=== PATIENT | female | born 1935 | race Caucasian/White ===

== ENCOUNTER → 2018-07-19 | Outpatient (CLI) | payer MEDICARE, OTHER ==
[~2018-07-19] MED LIST: ASPI-630 PO; FURO20TA3 PO; LISI-334 PO; LISI1TAB5 PO; METO50TA29 PO; RISP0.5T3 PO
--- NOTE | 2018-07-19 14:06 | RAD ---
EXAM: Bilateral lower extremity venous Doppler sonogram. HISTORY: Pain and swelling. TECHNIQUE: Ruiz scale and color Doppler sonographic evaluation of the bilateral lower extremity veins with spectral waveform analysis was performed. FINDINGS: There is normal color flow, normal compressibility and there are normal spectral waveforms in the common femoral, superficial femoral, popliteal, posterior tibial and greater saphenous veins. IMPRESSION: No Doppler evidence of lower extremity deep venous thrombosis. Electronically signed by: Jackeline Scales MD (07/19/2018 2:03 PM) [id number]
== END | disposition home or self-care (01) ==
LOC: US 13:04
PROVIDERS: ATTEND Family Medicine
DX: R60.0 Localized edema (principal)
CPT/HCPCS: 93970

== ENCOUNTER 2018-10-16 23:11 | Inpatient (IN) | payer MEDICARE, OTHER ==
[~2018-10-16] VITALS: Ht 157.5 cm; Wt 55.8 kg
[2018-10-16] MEDS ORDERED: IV NORMAL SALINE 1,000ML 1,000 ML IV ONE (23:30)
[2018-10-16 23:53] LABS: BASO % 0 % (0-3); EOS % 0 % (0-3); HEMATOCRIT 38.1 % (36.0-47.0); LYMPH # 0.9 x10^3/uL (1.0-4.8); LYMPH % 10 % (24-48); MEAN CORPUSCULAR HEMOGLOBIN 31 pg (25-35); MEAN CORPUSCULAR HGB CONC 34 g/dL (31-37); MEAN CORPUSCULAR VOLUME 92 fL (79-100); MONO # 0.6 x10^3/uL (0.0-1.1); MONO % 7 % (0-9); NEUT # 7.7 x10^3uL (1.8-7.7); NEUT % 83 % (31-73); PLATELET COUNT 133 x10^3/uL (140-400); RED BLOOD COUNT 4.12 x10^6/uL (3.50-5.40); RED CELL DISTRIBUTION WIDTH 14.2 % (11.5-14.5); WHITE BLOOD COUNT 9.2 x10^3/uL (4.0-11.0)
--- NOTE | 2018-10-17 00:20 | EKG ---
[address] [address] Test Date: 2018-10-16 Test Time: 23:56:43 Pat Name: ENRRIQUE TENORIO Department: Room: Gender: F [employer] Export Coordinator: : 1935 Requested By: GABRIELLA CURRAN Order Number: [id number] Reading MD: Measurements Intervals [place] Rate: 96 P: -28 NM: 124 QRS: -28 QRSD: 122 T: 19 QT: 390 QTc: 494 Interpretive Statements SINUS RHYTHM LEFTWARD AXIS NO SPECIFIC ECG ABNORMALITIES RI6.01 No previous ECG available for comparison
[2018-10-17 01:04] LABS: BARBITURATES NEG (NEG); BENZODIAZEPINES NEG (NEG); CANNABINOIDS NEG (NEG); COCAINE NEG (NEG); METHADONE NEG (NEG); OPIATES NEG (NEG); PHENCYCLIDINE NEG (NEG)
[2018-10-17 01:10] LABS: BACTERIA,URINE 0 /HPF (0-FEW); BILIRUBIN,URINE NEG (NEG); CLARITY,URINE CLEAR; COLOR,URINE YELLOW; GLUCOSE,URINE NEG (NEG); NITRITE,URINE NEG (NEG); UROBILINOGEN,URINE 1 mg/dL (0.2 mg/dL)
[2018-10-17 01:11] LABS: AMORPHOUS SEDIMENT,UR PRESENT /HPF; HYALINE CASTS, URINE MOD /HPF; SQUAMOUS EPITHELIAL CELL,UR OCC /LPF
[2018-10-17 01:13] LABS: AMPHETAMINE/METHAMPHETAMINE NEG (NEG)
[2018-10-17 01:34] LABS: ALBUMIN 4.4 g/dL (3.4-5.0); ALBUMIN/GLOBULIN RATIO 1.3 (1.0-1.7); CALCIUM 9.7 mg/dL (8.5-10.1); CREATININE 1.4 mg/dL (0.6-1.0); GFR 36.1; POTASSIUM 3.8 mmol/L (3.5-5.1); TOTAL BILIRUBIN 0.9 mg/dL (0.2-1.0); TOTAL PROTEIN 7.7 g/dL (6.4-8.2)
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
[2018-10-17] MEDS ORDERED: ACETAMINOPHEN 325 MG TABLET PO PRN (02:15)
[2018-10-17] MEDS ORDERED: IV 1/2 NORMAL SALINE 1,000 ML IV ONE (02:30)
[2018-10-17 02:50] VITALS: BP 136/79
[2018-10-17] MEDS: DOXYCYCLINE HYCLATE 100 MG TABLET PO SCH ×2 (10:00→20:48)
[2018-10-17] MEDS: IV DEXTROSE 5 %-0.45 % NACL 1,000 ML IV SCH ×2 (11:15→20:50)
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
[2018-10-17 11:46] VITALS: BP 123/74
[2018-10-17 16:22] VITALS: BP 118/67
--- NOTE | 2018-10-17 19:01 | PDOC ---
Exam Note: Vitaly Note: Please also refer to the separate dictated note~for this date of service dictated separately.~Patient seen individually. Discussed the patient with Nursing staff reviewed the chart.~Reviewed interim history and current functioning. Reviewed vital signs,~Labs/ Radiology~and current medications noted below. Continue current treatment with the changes noted in the dictated addendum note Assessment: Vital Signs: Vital Signs Date Time Temp Pulse Resp B/P (MAP) Pulse Ox O2 Delivery O2 Flow Rate FiO2 10/17/18 16:22 97.9 86 20 118/67 (84) 92 Room Air I&O Intake and Output 10/17/18 07:00 Intake Total 1000 ml Balance 1000 ml Intake Oral 0 ml IV Total 1000 ml # Voids 3 Labs: Laboratory Tests Test 10/16/18 23:35 10/17/18 00:30 White Blood Count 9.2 x10^3/uL (4.0-11.0) Red Blood Count 4.12 x10^6/uL (3.50-5.40) Hemoglobin 13.0 g/dL (12.0-15.5) Hematocrit 38.1 % (36.0-47.0) Mean Corpuscular Volume 92 fL (79-100) Mean Corpuscular Hemoglobin 31 pg (25-35) Mean Corpuscular Hemoglobin Concent 34 g/dL (31-37) Red Cell Distribution Width 14.2 % (11.5-14.5) Platelet Count 133 x10^3/uL (140-400) L Neutrophils (%) (Auto) 83 % (31-73) H Lymphocytes (%) (Auto) 10 % (24-48) L Monocytes (%) (Auto) 7 % (0-9) Eosinophils (%) (Auto) 0 % (0-3) Basophils (%) (Auto) 0 % (0-3) Neutrophils # (Auto) 7.7 x10^3uL (1.8-7.7) Lymphocytes # (Auto) 0.9 x10^3/uL (1.0-4.8) L Monocytes # (Auto) 0.6 x10^3/uL (0.0-1.1) Eosinophils # (Auto) 0.0 x10^3/uL (0.0-0.7) Basophils # (Auto) 0.0 x10^3/uL (0.0-0.2) Sodium Level 148 mmol/L (136-145) H Potassium Level 3.8 mmol/L (3.5-5.1) Chloride Level 108 mmol/L (98-107) H Carbon Dioxide Level 27 mmol/L (21-32) Anion Gap 13 (6-14) Blood Urea Nitrogen 56 mg/dL (7-20) H Creatinine 1.4 mg/dL (0.6-1.0) H Estimated GFR (Cockcroft-Gault) 36.1 BUN/Creatinine Ratio 40 (6-20) H Glucose Level 124 mg/dL (70-99) H Calcium Level 9.7 mg/dL (8.5-10.1) Magnesium Level 2.5 mg/dL (1.8-2.4) H Total Bilirubin 0.9 mg/dL (0.2-1.0) Aspartate Amino Transferase (AST) 56 U/L (15-37) H Alanine Aminotransferase (ALT) 34 U/L (14-59) Alkaline Phosphatase 46 U/L (46-116) Troponin I Quantitative 0.018 ng/mL (0-0.055) Total Protein 7.7 g/dL (6.4-8.2) Albumin 4.4 g/dL (3.4-5.0) Albumin/Globulin Ratio 1.3 (1.0-1.7) Thyroid Stimulating Hormone (TSH) 0.451 uIU/mL (0.358-3.740) Urine Collection Type Unknown Urine Color Yellow Urine Clarity Clear Urine pH 5.5 Urine Specific [place] >=1.030 Urine Protein 30 mg/dl (NEG-TRACE) Urine Glucose (UA) Neg mg/dL (NEG) Urine Ketones (Stick) 15 mg/dL (NEG) Urine Blood Trace (NEG) Urine Nitrite Neg (NEG) Urine Bilirubin Neg (NEG) Urine Urobilinogen Dipstick 1 mg/dL (0.2 mg/dL) Urine Leukocyte Esterase Neg (NEG) Urine RBC 3-5 /HPF (0-2) Urine WBC 1-4 /HPF (0-4) Urine Squamous Epithelial Cells Occ /LPF Urine Amorphous Sediment Present /HPF Urine Bacteria 0 /HPF (0-FEW) Urine Hyaline Casts Mod /HPF Urine Mucus Mod /LPF Urine Opiates Screen Neg (NEG) Urine Methadone Screen Neg (NEG) Urine Barbiturates Neg (NEG) Urine Phencyclidine Screen Neg (NEG) Urine Amphetamine/Methamphetamine Neg (NEG) Urine Benzodiazepines Screen Neg (NEG) Urine Cocaine Screen Neg (NEG) Urine Cannabinoids Screen Neg (NEG) Urine Ethyl Alcohol Neg (NEG) Current Medications: Meds: Current Medications Sodium Chloride 1,000 ml @ 1,000 mls/hr 1X ONCE IV Last administered on 10/16/18at 23:37; Start 10/16/18 at 23:30; Stop 10/17/18 at 00:30; Status DC Acetaminophen (Tylenol) 650 mg PRN Q4HRS PRN PO FEVER; Start 10/17/18 at 02:15; Stop 10/18/18 at 02:14 Sodium Chloride 1,000 ml @ 125 mls/hr 1X ONCE IV Last administered on 10/17/18at 04:00; Start 10/17/18 at 02:30; Stop 10/17/18 at 10:29; Status DC Dextrose/Sodium Chloride 1,000 ml @ 75 mls/hr [id number] IV Last administered on 10/17/18at 11:15; Start 10/17/18 at 10:00 Doxycycline Hyclate (Vibra-Tab) 100 mg BID PO Last administered on 10/17/18at 10:00; Start 10/17/18 at 10:00 I have reviewed the current psychotropics carefully including drug interactions. Risk benefit ratio favors no change other than as noted in my dictated progress note. 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
[2018-10-17 20:14] VITALS: BP 127/70
[2018-10-18] MEDS: IV DEXTROSE 5 %-0.45 % NACL 1,000 ML IV SCH ×2 (02:32→17:35)
[2018-10-18 05:43] VITALS: BP 119/71
[2018-10-18 06:18] LABS: BASO % 1 % (0-3); EOS # 0.1 x10^3/uL (0.0-0.7); EOS % 2 % (0-3); HEMATOCRIT 32.1 % (36.0-47.0); HEMOGLOBIN 10.9 g/dL (12.0-15.5); LYMPH % 20 % (24-48); MEAN CORPUSCULAR HEMOGLOBIN 31 pg (25-35); MEAN CORPUSCULAR HGB CONC 34 g/dL (31-37); MEAN CORPUSCULAR VOLUME 92 fL (79-100); MONO # 0.4 x10^3/uL (0.0-1.1); MONO % 8 % (0-9); NEUT # 3.6 x10^3uL (1.8-7.7); NEUT % 69 % (31-73); PLATELET COUNT 99 x10^3/uL (140-400); RED BLOOD COUNT 3.51 x10^6/uL (3.50-5.40); RED CELL DISTRIBUTION WIDTH 14.1 % (11.5-14.5); WHITE BLOOD COUNT 5.2 x10^3/uL (4.0-11.0)
[2018-10-18 06:25] LABS: CREATININE 0.8 mg/dL (0.6-1.0); GFR 68.8; POTASSIUM 3.2 mmol/L (3.5-5.1)
[2018-10-18] MEDS ORDERED: POTASSIUM CHLORIDE 20 MEQ TABLET.ER. PO ONE (08:00)
[2018-10-18] MEDS: DOXYCYCLINE HYCLATE 100 MG TABLET PO SCH ×2 (08:45→20:04)
[2018-10-18] MEDS ORDERED: ASPI-630 PO (10:35)
[2018-10-18] MEDS ORDERED: METO50TA29 PO (10:35)
[2018-10-18] MEDS ORDERED: FURO20TA3 PO (10:35)
[2018-10-18] MEDS ORDERED: LISI1TAB5 PO (10:35)
[2018-10-18 11:26] VITALS: BP 127/73
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
[2018-10-18 15:25] VITALS: BP 119/70
--- NOTE | 2018-10-18 18:26 | PDOC ---
Exam Note: Vitaly Note: Please also refer to the separate dictated note~for this date of service dictated separately.~Patient seen individually. Discussed the patient with Nursing staff reviewed the chart.~Reviewed interim history and current functioning. Reviewed vital signs,~Labs/ Radiology~and current medications noted below. Continue current treatment with the changes noted in the dictated addendum note Assessment: Vital Signs: Vital Signs Date Time Temp Pulse Resp B/P (MAP) Pulse Ox O2 Delivery O2 Flow Rate FiO2 10/18/18 15:25 97.9 84 18 119/70 (86) 96 Room Air I&O Intake and Output 10/18/18 07:00 Intake Total 3361 ml Balance 3361 ml Intake Oral 1280 ml IV Total 2081 ml Labs: Laboratory Tests Test 10/18/18 06:07 White Blood Count 5.2 x10^3/uL (4.0-11.0) Red Blood Count 3.51 x10^6/uL (3.50-5.40) Hemoglobin 10.9 g/dL (12.0-15.5) L Hematocrit 32.1 % (36.0-47.0) L Mean Corpuscular Volume 92 fL (79-100) Mean Corpuscular Hemoglobin 31 pg (25-35) Mean Corpuscular Hemoglobin Concent 34 g/dL (31-37) Red Cell Distribution Width 14.1 % (11.5-14.5) Platelet Count 99 x10^3/uL (140-400) L Neutrophils (%) (Auto) 69 % (31-73) Lymphocytes (%) (Auto) 20 % (24-48) L Monocytes (%) (Auto) 8 % (0-9) Eosinophils (%) (Auto) 2 % (0-3) Basophils (%) (Auto) 1 % (0-3) Neutrophils # (Auto) 3.6 x10^3uL (1.8-7.7) Lymphocytes # (Auto) 1.0 x10^3/uL (1.0-4.8) Monocytes # (Auto) 0.4 x10^3/uL (0.0-1.1) Eosinophils # (Auto) 0.1 x10^3/uL (0.0-0.7) Basophils # (Auto) 0.0 x10^3/uL (0.0-0.2) Sodium Level 142 mmol/L (136-145) Potassium Level 3.2 mmol/L (3.5-5.1) L Chloride Level 107 mmol/L (98-107) Carbon Dioxide Level 30 mmol/L (21-32) Anion Gap 5 (6-14) L Blood Urea Nitrogen 24 mg/dL (7-20) H Creatinine 0.8 mg/dL (0.6-1.0) Estimated GFR (Cockcroft-Gault) 68.8 Glucose Level 96 mg/dL (70-99) Calcium Level 8.0 mg/dL (8.5-10.1) L Current Medications: Meds: Current Medications Sodium Chloride 1,000 ml @ 1,000 mls/hr 1X ONCE IV Last administered on 10/16/18at 23:37; Start 10/16/18 at 23:30; Stop 10/17/18 at 00:30; Status DC Acetaminophen (Tylenol) 650 mg PRN Q4HRS PRN PO FEVER; Start 10/17/18 at 02:15; Stop 10/18/18 at 02:14; Status DC Sodium Chloride 1,000 ml @ 125 mls/hr 1X ONCE IV Last administered on 10/17/18at 04:00; Start 10/17/18 at 02:30; Stop 10/17/18 at 10:29; Status DC Dextrose/Sodium Chloride 1,000 ml @ 75 mls/hr [id number] IV Last administered on 10/18/18at 17:35; Start 10/17/18 at 10:00 Doxycycline Hyclate (Vibra-Tab) 100 mg BID PO Last administered on 10/18/18at 08:45; Start 10/17/18 at 10:00 Potassium Chloride (Klor-Con) 40 meq 1X ONCE PO Last administered on 10/18/18at 08:46; Start 10/18/18 at 08:00; Stop 10/18/18 at 08:03; Status DC Active Scripts Active Reported Aspirin 81 Mg Tab.chew 81 Mg PO DAILY Lisinopril-Hctz 20-12.5 Mg Tab (Lisinopril/Hydrochlorothiazide) 1 Each Tablet 1 Tab PO DAILY Furosemide 20 Mg Tablet 1 Tab PO DAILY Metoprolol Succinate ( Xl ) (Metoprolol Succinate) 50 Mg Tab.er.24h 1 Tab PO DAILY I have reviewed the current psychotropics carefully including drug interactions. Risk benefit ratio favors no change other than as noted in my dictated progress note. 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
[2018-10-18 19:27] VITALS: BP 152/89
--- NOTE | 2018-10-18 20:54 | PN ---
DATE: 10/18/2018 SUBJECTIVE: This is an 83-year-old female, who is acutely confused and acute psychiatric problem. The patient seems to be a little bit more comfortable today, but still confused. The patient's platelet count continues to go down from 133 down to 99, hemoglobin 10.9. Potassium still low. She is on an electrolyte replacement. We will continue to monitor her accordingly and make further evaluation. OBJECTIVE LUNGS: Diminished throughout, poor movement of air. CARDIOVASCULAR: Regular sinus rhythm. ABDOMEN: Soft, nontender. EXTREMITIES: No clubbing, cyanosis or edema. PLAN: Continue to monitor the patient and make further evaluation on her as indicated per those responses. MOHINI CALL MD DR: ADELA/arielle JOB#: [id number] / [id number]
[2018-10-18] MEDS ORDERED: risperiDONE 0.25 MG TABLET. PO SCH (21:00)
[2018-10-18 23:22] VITALS: BP 133/75
[2018-10-19 05:50] VITALS: BP 151/76
[2018-10-19] MEDS: DOXYCYCLINE HYCLATE 100 MG TABLET PO SCH (08:14)
[2018-10-19 11:04] VITALS: BP 160/81
--- NOTE | 2018-10-19 11:17 | RAD ---
Chest, 2 views, 10/19/2018: HISTORY: Shortness of breath The heart is of normal size. There is extensive calcific plaquing of the mitral annulus. There is moderate calcific plaquing and tortuosity of the thoracic aorta. The pulmonary vascularity is normal. There is minimal linear scarring or atelectasis in the right base. The lungs are otherwise clear. There is blunting of the posterior costophrenic angle on the left compatible scarring versus a small amount of pleural fluid. Mild scattered degenerative changes are evident in the spine. IMPRESSION: 1. Mild right basilar linear scarring or atelectasis. 2. Tiny left pleural effusion versus scarring. Electronically signed by: Alvaro Garvey MD (10/19/2018 11:14 AM) [facility]
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
[2018-10-19] MEDS ORDERED: RISP0.5T3 PO (11:45)
[2018-10-19] MEDS ORDERED: LISI-334 PO (11:46)
--- NOTE | 2018-10-19 23:42 | PN ---
DATE: 10/18/2018 PSYCHIATRIC PROGRESS NOTE This is late entry of 10/18/2018 covers the elements not covered in my initial note. SUBJECTIVE: I met with the patient in the evening. This note covers elements not covered in my initial note. Overall, the patient remains paranoid, psychotic, confused, and restless at times. REVIEW OF SYSTEMS: No CV, , pulmonary, eye system symptoms on review. I met with her in her room. MENTAL STATUS EXAM: Oriented to herself, situation, insight, and judgment. Recent memory is impaired. Language function is intact. Attention span is short. Mood and affect remain somewhat anxious and labile. LABORATORY DATA: Reviewed. IMPRESSION: Major neurocognitive disorder, Alzheimer, vascular with delusion. Rule out bipolar 1 disorder, mixed with psychotic features given her premorbid history of mood swings and psychosis, even when her adult children were growing up; anxiety disorder, unspecified. Rest unchanged. PLAN: Given her ongoing psychosis, we will initiate Risperdal 0.25 mg p.o. at bedtime. When she is medically stable, we will transfer her to the [facility] for further evaluation and stabilization given the fact that her behaviors were quite dangerous and unmanageable at home and she may need out of home placement. LIZ COLIN MD DR: MICHAEL/arielle JOB#: [id number] / [id number]
== END 2018-10-19 14:00 | DRG 683 ==
LOC: ER 23:11 → 1 SOUTH 10-17 02:05
PROVIDERS: ADMIT Family Medicine; ATTEND Family Medicine
DX: N17.9 Acute kidney failure, unspecified (principal); E87.0 Hyperosmolality and hypernatremia; F01.51 Vascular dementia, unspecified severity, with behavioral disturbance; F02.81 Dementia in other diseases classified elsewhere, unspecified severity, with behavioral disturbance; F23 Brief psychotic disorder; E86.0 Dehydration; I12.9 Hypertensive chronic kidney disease with stage 1 through stage 4 chronic kidney disease, or unspecified chronic kidney disease; G30.9 Alzheimer's disease, unspecified; D69.6 Thrombocytopenia, unspecified; N18.3 Chronic kidney disease, stage 3 (moderate); T14.8XXA Other injury of unspecified body region, initial encounter; W57.XXXA Bitten or stung by nonvenomous insect and other nonvenomous arthropods, initial encounter; D63.8 Anemia in other chronic diseases classified elsewhere; E87.6 Hypokalemia; F41.9 Anxiety disorder, unspecified; F32.9 Major depressive disorder, single episode, unspecified; F63.9 Impulse disorder, unspecified; Y93.89 Activity, other specified; Y92.89 Other specified places as the place of occurrence of the external cause; Y99.8 Other external cause status; Z91.83 Wandering in diseases classified elsewhere
CPT/HCPCS: 36415; 71046; 80048; 80053; 80307; 81001; 82607; 83735; 84443; 84484; 85025; 86617; 86618; 93005; 96360; J7030; P9612; 99285-25

== ENCOUNTER 2018-10-19 12:39 | Inpatient (IN) | payer MEDICARE, OTHER ==
[~2018-10-19] VITALS: Ht 157.5 cm; Wt 59.2 kg
[2018-10-19 14:42] VITALS: BP 150/80
[2018-10-19] MEDS ORDERED: MAGNESIUM HYDROXIDE 2,400 MG/30 ML ORAL.SUSP. PO PRN (14:45)
[2018-10-19] MEDS ORDERED: METHYL SALICYLATE/MENTHOL TOPICAL OINTMENT 29GM TUBE. TP PRN (14:45)
[2018-10-19] MEDS ORDERED: MAG HYDROX/AL HYDROX/SIMETH 30 ML ORAL.SUSP PO PRN (14:45)
[2018-10-19 16:27] VITALS: BP 162/91
[2018-10-19] MEDS: risperiDONE 0.5 MG TABLET. PO SCH (20:33)
--- NOTE | 2018-10-19 22:41 | PDOC ---
Exam Note: Vitaly Note: Please also refer to the separate dictated note~for this date of service dictated separately. Discussed the patient with Nursing staff reviewed the chart.~Reviewed interim history and current functioning. Reviewed vital signs,~Labs/ Radiology~and current medications noted below. Continue current treatment with the changes noted in the dictated addendum note Assessment: Vital Signs: Vital Signs Date Time Temp Pulse Resp B/P (MAP) Pulse Ox O2 Delivery O2 Flow Rate FiO2 10/19/18 16:27 98.0 104 20 162/91 (114) 97 10/19/18 14:42 Room Air Labs: Laboratory Tests Test 10/19/18 14:35 Magnesium Level 1.8 mg/dL (1.8-2.4) Current Medications: Meds: Current Medications Furosemide (Lasix) 20 mg DAILY PO ; Start 10/20/18 at 09:00 Lisinopril (Prinivil) 20 mg DAILY PO ; Start 10/20/18 at 09:00 Aspirin (Children'S Aspirin) 81 mg QODAY PO ; Start 10/20/18 at 09:00 Metoprolol Succinate (Toprol Xl) 50 mg DAILY PO ; Start 10/20/18 at 09:00 Risperidone (RisperDAL) 0.5 mg QHS PO Last administered on 10/19/18at 20:33; Start 10/19/18 at 21:00 Acetaminophen (Tylenol) 650 mg PRN Q6HRS PRN PO PAIN / TEMP; Start 10/19/18 at 14:45 Multi-Ingredient Ointment (Analgesic [place]) 1 guanako PRN QID PRN TP MUSCLE PAIN; S tart 10/19/18 at 14:45 Al Hydroxide/Mg Hydroxide (Mylanta Plus Xs) 15 ml PRN AFTMEALHC PRN PO DYSPEPSIA; Start 10/19/18 at 14:45 Magnesium Hydroxide (Milk Of Magnesia) 2,400 mg PRN QHS PRN PO CONSTIPATION; Start 10/19/18 at 14:45 Active Scripts Active Reported Lisinopril 20 Mg Tablet 1 Tab PO DAILY Risperidone 0.5 Mg Tablet 0.5 Tab PO HS Aspirin 81 Mg Tab.chew 81 Mg PO QODAY Furosemide 20 Mg Tablet 1 Tab PO DAILY Metoprolol Succinate ( Xl ) (Metoprolol Succinate) 50 Mg Tab.er.24h 1 Tab PO DAILY I have reviewed the current psychotropics carefully including drug interactions. Risk benefit ratio favors no change other than as noted in my dictated progress note. Diagnosis: Problems: (1) Anxiety disorder (2) Dementia, vascular, with depression (3) Dementia, vascular, with delusions (4) Dementia in Alzheimer's disease with depression (5) Dementia in Alzheimer's disease with delusions (6) Impulse control disorder LIZ COLIN MD Oct 19, 2018 22:41
[2018-10-20 05:56] VITALS: BP 133/83
[2018-10-20 06:39] LABS: BACTERIA,URINE 0 /HPF (0-FEW); BILIRUBIN,URINE NEG (NEG); CLARITY,URINE CLEAR; COLOR,URINE YELLOW; GLUCOSE,URINE NEG (NEG); NITRITE,URINE NEG (NEG); RBC,URINE 0 /HPF (0-2); UROBILINOGEN,URINE 0.2 mg/dL (0.2 mg/dL); WBC,URINE 0 /HPF (0-4)
[2018-10-20] MEDS: ASPIRIN 81 MG TAB.CHEW PO SCH (08:37)
[2018-10-20] MEDS: FUROSEMIDE 20 MG TABLET PO SCH (08:37)
[2018-10-20] MEDS: LISINOPRIL 20 MG TABLET PO SCH (08:38)
[2018-10-20] MEDS: METOPROLOL SUCC 24HR ER 50 MG TAB.ER.24H. PO SCH (08:39)
--- NOTE | 2018-10-20 08:44 | RAD ---
CT of the head without contrast, 10/20/2018: HISTORY: Altered mental status There is mild cerebral atrophy. There are moderate patchy lucencies in the deep white matter bilaterally suggesting chronic ischemic change. The ventricles are within normal limits in size. There is no shift of the midline structures. There is no evidence of acute intracranial hemorrhage or mass effect. There is moderate hyperostosis frontalus interna. IMPRESSION: 1. Cerebral atrophy. 2. Moderate patchy bilateral deep white matter lucencies compatible with chronic ischemic change. 3. No acute intracranial abnormality is detected PQRS Compliance Statement: One or more of the following individualized dose reduction techniques were utilized for this examination: 1. Automated exposure control 2. Adjustment of the mA and/or kV according to patient size 3. Use of iterative reconstruction technique te intracranial abnormality is detected. Electronically signed by: Alvaro Garvey MD (10/20/2018 8:41 AM) [facility]
[2018-10-20 09:19] LABS: BASO % 1 % (0-3); EOS % 1 % (0-3); HEMOGLOBIN 12.9 g/dL (12.0-15.5); LYMPH # 0.7 x10^3/uL (1.0-4.8); LYMPH % 17 % (24-48); MEAN CORPUSCULAR HEMOGLOBIN 31 pg (25-35); MEAN CORPUSCULAR HGB CONC 33 g/dL (31-37); MEAN CORPUSCULAR VOLUME 93 fL (79-100); MONO # 0.3 x10^3/uL (0.0-1.1); MONO % 6 % (0-9); NEUT % 75 % (31-73); PLATELET COUNT 109 x10^3/uL (140-400); RED BLOOD COUNT 4.19 x10^6/uL (3.50-5.40); RED CELL DISTRIBUTION WIDTH 13.8 % (11.5-14.5)
[2018-10-20 09:37] LABS: ALBUMIN 3.2 g/dL (3.4-5.0); ALBUMIN/GLOBULIN RATIO 0.9 (1.0-1.7); CALCIUM 8.9 mg/dL (8.5-10.1); CREATININE 0.8 mg/dL (0.6-1.0); GFR 68.8; POTASSIUM 3.7 mmol/L (3.5-5.1); TOTAL BILIRUBIN 0.4 mg/dL (0.2-1.0); TOTAL PROTEIN 6.7 g/dL (6.4-8.2)
--- NOTE | 2018-10-20 10:15 | HP ---
ADMIT DATE: 10/19/2018 PSYCHIATRIC ADMISSION HISTORY/EVALUATION This late entry 10/19/2018 covers illness, not covered in the initial note. I met with the patient evening of 10/19/2018 at length. Discussed with nursing staff, reviewed the chart. Reviewed current past records. I had previously seen the patient for a psychiatric consult while she was in [address] [place] [address] medical/surgical floor and I have reviewed all that information as well. IDENTIFYING DATA: The patient is an 83-year-old female referred by Dr. Recinos from the medical/surgical floor after she was admitted there via the Emergency Room. Brought in by the family on account of worsening confusion, being delusional, paranoid, having active hallucinations. [place] the [place] She was agitated, yelling at staff, was covered with ticks, possibly 16 of them were removed in the ER. She was paranoid, suspicious, confused. She was medically stabilized on , symptoms persisted and she was unsafe to return home, referred for inpatient psychiatric stabilization, possible placement. CHIEF COMPLAINT: "I have difficulty making out a difference between reality and imagination." HISTORY OF PRESENT ILLNESS: The patient has a history of progressive memory deficits, confusion, but prior to all of that the family relates she had additional history of mood swings, psychosis, agitation, yelling at the children when she was much younger and all of this for no reason. She never did seek psychiatric care at this time, but with the onset of progressive dementia, all of this has exacerbated to the point where she was dangerous as noted above. No active suicidal or homicidal ideation. The patient continues to be paranoid, believes her sister and family are trying to steal her home and land. She has been delusional, thinks she has been walking 5 miles a day to the grocery store for food. PAST PSYCHIATRIC HISTORY: As above. MEDICAL HISTORY: Positive for hypertension, multiple tick bites, chronic kidney disease, hypernatremia, dehydration, hyperglycemia, thrombocytopenia. She is medically stable at this time. ACCU-CHEKS: None. DIET: Regular. MEDICATIONS: Takes medications whole. AMBULATES: Ad carrie. ALLERGIES: Negative. CODE STATUS: Full code. CURRENT PSYCHOTROPICS: Risperdal was started on , 0.5 mg p.o. at bedtime, by myself for her paranoia, psychosis. FAMILY HISTORY: Noncontributory. SOCIAL HISTORY: No history of alcohol, drug abuse, physical, sexual or elder abuse. She is not known to be a perpetrator. MENTAL STATUS EXAMINATION: The patient was seen individually evening of 10/19/2018. She is anxious, restless, remember she has seen me previously. Unaware of the year or who the president is, as before. Speech has some latency, coherent. She is paranoid, suspicious. No active suicidal or homicidal ideation. Attention span short. Language function intact. LABORATORY DATA: Reviewed. 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 Rest as above. PLAN: Admit to Ger[facility]iat[facility] Unit at [facility]. I will see the patient daily individually from a psychiatric standpoint. Medical followup with Dr. Recinos. Continue the patient on her current psychotropics. Consider adding Zoloft as an SSRI antidepressant antianxiety agent. We will check a CT head to make sure no acute intracranial changes could account for her change in mentation. May consider adding Exelon patch as well. We will make all these decisions post baseline assessment. Estimated length of stay 10-12 days. DISPOSITION: Plans probably to snf. MAN Charli COLIN MD DR: MICHAEL/arielle JOB#: [id number] / [id number]
[2018-10-20 12:55] LABS: THYROID STIM HORMONE (TSH) 1.15 uIU/mL (0.358-3.740)
[2018-10-20 13:07] LABS: HEMOGLOBIN A1C 5.6 % (4.8-5.6)
[2018-10-20 15:41] VITALS: BP 148/88
[2018-10-20] MEDS: risperiDONE 0.5 MG TABLET. PO SCH (19:39)
--- NOTE | 2018-10-20 23:00 | PDOC ---
Exam Note: Vitaly Note: Please also refer to the separate dictated note~for this date of service dictated separately.~Patient seen individually. Discussed the patient with Nursing staff reviewed the chart.~Reviewed interim history and current functioning. Reviewed vital signs,~Labs/ Radiology~and current medications noted below. Continue current treatment with the changes noted in the dictated addendum note Assessment: Vital Signs: Vital Signs Date Time Temp Pulse Resp B/P (MAP) Pulse Ox O2 Delivery O2 Flow Rate FiO2 10/20/18 15:41 98.1 82 20 148/88 (108) 98 10/19/18 14:42 Room Air I&O Intake and Output 10/20/18 06:59 Intake Total 720 ml Balance 720 ml Intake Oral 720 ml Labs: Laboratory Tests Test 10/20/18 05:35 10/20/18 09:09 Urine Collection Type Void Urine Color Yellow Urine Clarity Clear Urine pH 7.0 Urine Specific [place] 1.010 Urine Protein Neg (NEG-TRACE) Urine Glucose (UA) Neg mg/dL (NEG) Urine Ketones (Stick) Neg mg/dL (NEG) Urine Blood Trace (NEG) Urine Nitrite Neg (NEG) Urine Bilirubin Neg (NEG) Urine Urobilinogen Dipstick 0.2 mg/dL (0.2 mg/dL) Urine Leukocyte Esterase Trace (NEG) Urine RBC 0 /HPF (0-2) Urine WBC 0 /HPF (0-4) Urine Squamous Epithelial Cells None /LPF Urine Bacteria 0 /HPF (0-FEW) White Blood Count 4.0 x10^3/uL (4.0-11.0) Red Blood Count 4.19 x10^6/uL (3.50-5.40) Hemoglobin 12.9 g/dL (12.0-15.5) Hematocrit 39.0 % (36.0-47.0) Mean Corpuscular Volume 93 fL (79-100) Mean Corpuscular Hemoglobin 31 pg (25-35) Mean Corpuscular Hemoglobin Concent 33 g/dL (31-37) Red Cell Distribution Width 13.8 % (11.5-14.5) Platelet Count 109 x10^3/uL (140-400) L Neutrophils (%) (Auto) 75 % (31-73) H Lymphocytes (%) (Auto) 17 % (24-48) L Monocytes (%) (Auto) 6 % (0-9) Eosinophils (%) (Auto) 1 % (0-3) Basophils (%) (Auto) 1 % (0-3) Neutrophils # (Auto) 3.0 x10^3uL (1.8-7.7) Lymphocytes # (Auto) 0.7 x10^3/uL (1.0-4.8) L Monocytes # (Auto) 0.3 x10^3/uL (0.0-1.1) Eosinophils # (Auto) 0.0 x10^3/uL (0.0-0.7) Basophils # (Auto) 0.0 x10^3/uL (0.0-0.2) Sodium Level 143 mmol/L (136-145) Potassium Level 3.7 mmol/L (3.5-5.1) Chloride Level 105 mmol/L (98-107) Carbon Dioxide Level 30 mmol/L (21-32) Anion Gap 8 (6-14) Blood Urea Nitrogen 10 mg/dL (7-20) Creatinine 0.8 mg/dL (0.6-1.0) Estimated GFR (Cockcroft-Gault) 68.8 BUN/Creatinine Ratio 13 (6-20) Glucose Level 193 mg/dL (70-99) H Calcium Level 8.9 mg/dL (8.5-10.1) Total Bilirubin 0.4 mg/dL (0.2-1.0) Aspartate Amino Transferase (AST) 33 U/L (15-37) Alanine Aminotransferase (ALT) 35 U/L (14-59) Alkaline Phosphatase 44 U/L (46-116) L Total Protein 6.7 g/dL (6.4-8.2) Albumin 3.2 g/dL (3.4-5.0) L Albumin/Globulin Ratio 0.9 (1.0-1.7) L Current Medications: Meds: Current Medications Furosemide (Lasix) 20 mg DAILY PO Last administered on 10/20/18at 08:37; Start 10/20/18 at 09:00 Lisinopril (Prinivil) 20 mg DAILY PO Last administered on 10/20/18at 08:38; Start 10/20/18 at 09:00 Aspirin (Children'S Aspirin) 81 mg QODAY PO Last administered on 10/20/18at 08:37; Start 10/20/18 at 09:00 Metoprolol Succinate (Toprol Xl) 50 mg DAILY PO Last administered on 10/20/18at 08:39; Start 10/20/18 at 09:00 Risperidone (RisperDAL) 0.5 mg QHS PO Last administered on 10/20/18at 19:39; Start 10/19/18 at 21:00 Acetaminophen (Tylenol) 650 mg PRN Q6HRS PRN PO PAIN / TEMP; Start 10/19/18 at 14:45 Multi-Ingredient Ointment (Analgesic [place]) 1 guanako PRN QID PRN TP MUSCLE PAIN; Start 10/19/18 at 14:45 Al Hydroxide/Mg Hydroxide (Mylanta Plus Xs) 15 ml PRN AFTMEALHC PRN PO DYSPEPSIA; Start 10/19/18 at 14:45 Magnesium Hydroxide (Milk Of Magnesia) 2,400 mg PRN QHS PRN PO CONSTIPATION; Start 10/19/18 at 14:45 Sertraline HCl (Zoloft) 25 mg DAILY PO ; Start 10/21/18 at 09:00 Rivastigmine (Exelon) 1 patch DAILY TD ; Start 10/21/18 at 09:00 Active Scripts Active Reported Lisinopril 20 Mg Tablet 1 Tab PO DAILY Risperidone 0.5 Mg Tablet 0.5 Tab PO HS Aspirin 81 Mg Tab.chew 81 Mg PO QODAY Furosemide 20 Mg Tablet 1 Tab PO DAILY Metoprolol Succinate ( Xl ) (Metoprolol Succinate) 50 Mg Tab.er.24h 1 Tab PO DAILY I have reviewed the current psychotropics carefully including drug interactions. Risk benefit ratio favors no change other than as noted in my dictated progress note. Diagnosis: Problems: (1) Major neurocognitive disorder, due to vascular disease, with behavioral disturbance, mild (2) Anxiety disorder (3) Dementia, vascular, with depression (4) Dementia, vascular, with delusions (5) Dementia in Alzheimer's disease with depression (6) Dementia in Alzheimer's disease with delusions (7) Impulse control disorder LIZ COLIN MD Oct 20, 2018 23:00
--- NOTE | 2018-10-21 04:20 | CONS ---
DATE OF CONSULTATION: 10/20/2018 REASON FOR CONSULTATION: Medical management. HISTORY OF PRESENT ILLNESS: The patient is an 83-year-old female patient who was seen initially in the Emergency Room, where she was brought by her family on account of worsening confusion, being delusional, paranoid, having active hallucination, and the police [place]. She was agitated, yelling at staff, was covered with ticks, possibly 16 of them were removed in the ER. She was paranoid, suspicious, confused. She was admitted to [address] [place] [address]. However, her symptoms have persisted and therefore, she was transferred to [facility] for inpatient psychiatric stabilization and possible placement. The patient is very confused and does not really give any useful information and difficult to corroborate her story. However, she denied any physical complaints. PAST MEDICAL HISTORY: Significant for hypertension, chronic kidney disease, hypernatremia, dehydration, hyperglycemia, and thrombocytopenia. She was stabilized in [address] [place] [address]. In fact, her lab work normalized by the time she arrived to this unit. Her serum sodium was 142, potassium down to 3.2, BUN 24, creatinine 0.8 and her magnesium was also normal. PAST SURGICAL HISTORY: Unobtainable. ALLERGIES: She has no known drug allergies. CODE STATUS: Full. PSYCHIATRIC HISTORY: Significant for progressive memory deficit, confusion, but prior to all of that, the family relates that she had additional history of mood swings, psychosis, agitation, yelling at children when she was much younger and all of this for no reason. She never did not seek any psychiatric care at that time, but with the onset of progressive dementia, all of these has exacerbated to the point that she was dangerous as noted above. MEDICATIONS: She is currently on following medications: She is on metoprolol succinate 50 mg once a day, lisinopril 20 mg once a day, aspirin 81 mg every other day, risperidone 0.5 mg at bedtime, and furosemide 20 mg daily. REVIEW OF SYSTEMS: As per history of present illness. PHYSICAL EXAMINATION GENERAL: When I saw her today, she looked well and was clearly in no apparent respiratory distress. No pallor, jaundice, cyanosis or thyromegaly. No jugular venous distension. No lower limb edema. VITAL SIGNS: Her heart rate was 82, blood pressure was 148/88, temperature was 98.1, respiratory rate 20, and oxygen saturation was 98%. HEAD, EYES, EARS, NOSE, AND THROAT: Showed normocephalic, atraumatic. NECK: Supple. HEART: Showed normal first and second heart sounds. No gallop, rub or murmur. CHEST: Clear to auscultation. No crepitation or rhonchi. ABDOMEN: Distended, soft, nontender. NEUROLOGIC: She is confused; however, all her cranial nerves intact. She moves extremities without difficulty. LABORATORY DATA: Her lab work this morning showed a serum sodium 143, potassium 3.7, chloride 105, bicarbonate 30, anion gap of 8, BUN 10, creatinine 0.8, estimated GFR was 68 mL per minute. Her glucose 193, calcium was 8.9. Total bilirubin, AST, ALT, and alkaline phosphatase were normal. Her serum iron, TIBC, and iron saturation consistent with iron deficiency anemia. Her total protein was 6.7, albumin was 3.2. Her 25-hydroxy vitamin D was low at 22.3; however, her TSH is normal at 1.150. The total T4 and total T3 were normal. Her white cell count was 4000, hemoglobin 12.9, hematocrit 39, MCV 93, and platelet count of 109,000 with normal manual differential. Urinalysis was unremarkable and toxic screen was essentially negative. Her Treponema pallidum antibody was nonreactive, and Lyme disease IgG, IgM was negative. ASSESSMENT AND PLAN: In summary, this is an 83-year-old female patient who was initially evaluated in the Emergency Room, was found to have multiple medical abnormalities including hypernatremia and acute kidney injury and marked dehydration that all has been stabilized. She continued to have episodes of hyperglycemia and thrombocytopenia. I have reviewed all her medications and would obviously continue all of them. We will continue to monitor her other lab work that is still pending and make any necessary recommendation. Thank you, Dr. Dutta, for allowing me to participate in the care of this patient. MEG DE LA CRUZ MD DR: ERIN/arielle JOB#: [id number] / [id number]
[2018-10-21 06:16] VITALS: BP 127/72
[2018-10-21] MEDS: FUROSEMIDE 20 MG TABLET PO SCH (08:14)
[2018-10-21] MEDS: METOPROLOL SUCC 24HR ER 50 MG TAB.ER.24H. PO SCH (08:15)
[2018-10-21] MEDS: LISINOPRIL 20 MG TABLET PO SCH (08:15)
[2018-10-21] MEDS: RIVASTIGMINE 4.6MG PATCH. TD SCH (08:18)
[2018-10-21] MEDS: SERTRALINE 25 MG TABLET. PO SCH (08:18)
[2018-10-21 16:01] VITALS: BP 114/71
[2018-10-21] MEDS: risperiDONE 0.5 MG TABLET. PO SCH (19:48)
--- NOTE | 2018-10-21 22:19 | PDOC ---
Exam Note: Vitaly Note: Please also refer to the separate dictated note~for this date of service dictated separately.~Patient seen individually. Discussed the patient with Nursing staff reviewed the chart.~Reviewed interim history and current functioning. Reviewed vital signs,~Labs/ Radiology~and current medications noted below. Continue current treatment with the changes noted in the dictated addendum note Assessment: Vital Signs: Vital Signs Date Time Temp Pulse Resp B/P (MAP) Pulse Ox O2 Delivery O2 Flow Rate FiO2 10/21/18 16:01 97.8 58 16 114/71 (85) 96 10/21/18 06:16 Room Air I&O Intake and Output 10/21/18 07:00 Intake Total 960 ml Balance 960 ml Intake Oral 960 ml Current Medications: Meds: Current Medications Furosemide (Lasix) 20 mg DAILY PO Last administered on 10/21/18at 08:14; Start 10/20/18 at 09:00 Lisinopril (Prinivil) 20 mg DAILY PO Last administered on 10/21/18 08:15; Start 10/20/18 at 09:00 Aspirin (Children'S Aspirin) 81 mg QODAY PO Last administered on 10/20/18at 08:37; Start 10/20/18 at 09:00 Metoprolol Succinate (Toprol Xl) 50 mg DAILY PO Last administered on 10/21/18 08:15; Start 10/20/18 at 09:00 Risperidone (RisperDAL) 0.5 mg QHS PO Last administered on 10/21/18at 19:48; Start 10/19/18 at 21:00 Acetaminophen (Tylenol) 650 mg PRN Q6HRS PRN PO PAIN / TEMP; Start 10/19/18 at 14:45 Multi-Ingredient Ointment (Analgesic [place]) 1 guanako PRN QID PRN TP MUSCLE PAIN; Start 10/19/18 at 14:45 Al Hydroxide/Mg Hydroxide (Mylanta Plus Xs) 15 ml PRN AFTMEALHC PRN PO DYSPEPSIA; Start 10/19/18 at 14:45 Magnesium Hydroxide (Milk Of Magnesia) 2,400 mg PRN QHS PRN PO CONSTIPATION; Start 10/19/18 at 14:45 Sertraline HCl (Zoloft) 25 mg DAILY PO Last administered on 10/21/18at 08:18; Start 10/21/18 at 09:00; Stop 10/24/18 at 08:59 Rivastigmine (Exelon) 1 patch DAILY TD Last administered on 10/21/18at 08:18; Start 10/21/18 at 09:00 Sertraline HCl (Zoloft) 50 mg DAILY PO ; Start 10/24/18 at 09:00 Active Scripts Active Reported Lisinopril 20 Mg Tablet 1 Tab PO DAILY Risperidone 0.5 Mg Tablet 0.5 Tab PO HS Aspirin 81 Mg Tab.chew 81 Mg PO QODAY Furosemide 20 Mg Tablet 1 Tab PO DAILY Metoprolol Succinate ( Xl ) (Metoprolol Succinate) 50 Mg Tab.er.24h 1 Tab PO DAILY I have reviewed the current psychotropics carefully including drug interactions. Risk benefit ratio favors no change other than as noted in my dictated progress note. Diagnosis: Problems: (1) Major neurocognitive disorder, due to vascular disease, with behavioral disturbance, mild (2) Anxiety disorder (3) Dementia, vascular, with depression (4) Dementia, vascular, with delusions (5) Dementia in Alzheimer's disease with depression (6) Dementia in Alzheimer's disease with delusions (7) Impulse control disorder LIZ COLIN MD Oct 21, 2018 22:19
[2018-10-21] MEDS: ACETAMINOPHEN 325 MG TABLET PO PRN (23:43)
[2018-10-22 06:34] VITALS: BP 121/72
[2018-10-22] MEDS: FUROSEMIDE 20 MG TABLET PO SCH (08:29)
[2018-10-22] MEDS: METOPROLOL SUCC 24HR ER 50 MG TAB.ER.24H. PO SCH (08:29)
[2018-10-22] MEDS: LISINOPRIL 20 MG TABLET PO SCH (08:30)
[2018-10-22] MEDS: SERTRALINE 25 MG TABLET. PO SCH (08:30)
[2018-10-22] MEDS: RIVASTIGMINE 4.6MG PATCH. TD SCH (08:30)
[2018-10-22] MEDS: ASPIRIN 81 MG TAB.CHEW PO SCH (08:31)
[2018-10-22] MEDS: ACETAMINOPHEN 325 MG TABLET PO PRN (09:15)
[2018-10-22 15:20] VITALS: BP 109/57
--- NOTE | 2018-10-22 17:02 | PN ---
DATE: 10/20/2018 PSYCHIATRIC PROGRESS NOTE This late entry on 10/20/2018 covers elements, not covered in my initial note. SUBJECTIVE: I met with the patient in the evening. The patient slept 6-1/4 hours previous night. She has been tearful, anxious, confused specifically for short term events. She is paranoid of her family, stealing her things, wanting her home. CT head showed cerebral atrophy, moderate deep white matter lucencies, compatible with chronic ischemic disease, no acute changes. REVIEW OF SYSTEMS: No CV, , pulmonary, eye, ENT system symptoms on review. She kept following me around the unit even after I had met with her extensively to address all of the above. No CV, , pulmonary, eye, ENT system symptoms on review. MENTAL STATUS EXAM: Oriented to herself and situation. Speech is coherent, rapid at times. Abstraction fair, computation impaired, language function intact, attention span short. Mood and affect somewhat anxious, labile. LABORATORY DATA: Reviewed. 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 PLAN: Continue current psychotropics, start Zoloft 25 mg a day, Exelon patch 4.6 mg a day and she is on Risperdal 0.5 mg p.o. at bedtime. Adjust further as clinically indicated. LIZ COLIN MD DR: MICHAEL/arielle JOB#: [id number] / [id number]
[2018-10-22] MEDS: risperiDONE 0.5 MG TABLET. PO SCH (20:30)
--- NOTE | 2018-10-22 22:41 | PDOC ---
Exam Note: Vitaly Note: Please also refer to the separate dictated note~for this date of service dictated separately.~Patient seen individually. Discussed the patient with Nursing staff reviewed the chart.~Reviewed interim history and current functioning. Reviewed vital signs,~Labs/ Radiology~and current medications noted below. Continue current treatment with the changes noted in the dictated addendum note Assessment: Vital Signs/I&O: Vital Signs Date Time Temp Pulse Resp B/P (MAP) Pulse Ox O2 Delivery O2 Flow Rate FiO2 10/22/18 15:20 98.1 70 18 109/57 (74) 95 10/22/18 06:34 Room Air I & O 10/21/18 10/21/18 10/22/18 15:00 23:00 07:00 Intake Total 720 ml 600 ml Balance 720 ml 600 ml Current Medications: I have reviewed the current psychotropics carefully including drug interactions. Risk benefit ratio favors no change other than as noted in my dictated progress note. Diagnosis: Problems: (1) Major neurocognitive disorder, due to vascular disease, with behavioral disturbance, mild (2) Anxiety disorder (3) Dementia, vascular, with depression (4) Dementia, vascular, with delusions (5) Dementia in Alzheimer's disease with depression (6) Dementia in Alzheimer's disease with delusions (7) Impulse control disorder LIZ COLIN MD Oct 22, 2018 22:41
--- NOTE | 2018-10-23 00:13 | PN ---
DATE: 10/21/2018 PSYCHIATRIC PROGRESS NOTE This late entry 10/21/2018 covers elements not covered in my initial note. SUBJECTIVE: I met with the patient in the evening. The patient slept 7 hours previous night. The patient remains confused, somewhat paranoid, suspicious, believes her family is trying to take her belongings in her home. She is more interactive. She specifically feels the sister is trying to take her property. Processed this with her. REVIEW OF SYSTEMS: No CV, , pulmonary, eye, ENT system symptoms on review. Reliability poor. MENTAL STATUS EXAM: Oriented to herself and situation. Speech has some latency, coherent. Abstraction fair, computation impaired, language function intact, attention span short. Mood and affect, somewhat anxious, paranoid, labile at times. LABORATORY DATA: Reviewed. IMPRESSION: Unchanged from initial note. PLAN: Increase Zoloft from 25 mg a day to 50 mg a day after she has been on 25 for 3 days. Maintain Risperdal 0.5 mg at bedtime, Exelon patch 4.6 mg a day and we will increase this later. MAN Charli COLIN MD DR: MICHAEL/arielle JOB#: [id number] / [id number]
[2018-10-23 05:40] VITALS: BP 138/85
[2018-10-23] MEDS: FUROSEMIDE 20 MG TABLET PO SCH (09:10)
[2018-10-23] MEDS: METOPROLOL SUCC 24HR ER 50 MG TAB.ER.24H. PO SCH (09:12)
[2018-10-23] MEDS: LISINOPRIL 20 MG TABLET PO SCH (09:12)
[2018-10-23] MEDS: SERTRALINE 25 MG TABLET. PO SCH (09:13)
[2018-10-23] MEDS: RIVASTIGMINE 4.6MG PATCH. TD SCH (09:13)
[2018-10-23 15:42] VITALS: BP 123/77
[2018-10-23] MEDS: risperiDONE 0.5 MG TABLET. PO SCH (19:31)
--- NOTE | 2018-10-23 22:50 | PDOC ---
Exam Note: Vitaly Note: Please also refer to the separate dictated note~for this date of service dictated separately.~Patient seen individually. Discussed the patient with Nursing staff reviewed the chart.~Reviewed interim history and current functioning. Reviewed vital signs,~Labs/ Radiology~and current medications noted below. Continue current treatment with the changes noted in the dictated addendum note Assessment: Vital Signs/I&O: Vital Signs Date Time Temp Pulse Resp B/P (MAP) Pulse Ox O2 Delivery O2 Flow Rate FiO2 10/23/18 15:42 98.8 68 16 123/77 (92) 95 10/23/18 05:40 Room Air I & O 10/22/18 10/22/18 10/23/18 14:59 22:59 06:59 Intake Total 600 ml 120 ml 120 ml Balance 600 ml 120 ml 120 ml Current Medications: I have reviewed the current psychotropics carefully including drug interactions. Risk benefit ratio favors no change other than as noted in my dictated progress note. Diagnosis: Problems: (1) Major neurocognitive disorder, due to vascular disease, with behavioral disturbance, mild (2) Anxiety disorder (3) Dementia, vascular, with depression (4) Dementia, vascular, with delusions (5) Dementia in Alzheimer's disease with depression (6) Dementia in Alzheimer's disease with delusions (7) Impulse control disorder ILZ COLIN MD Oct 23, 2018 22:50
[2018-10-24 05:44] VITALS: BP 119/69
[2018-10-24] MEDS: FUROSEMIDE 20 MG TABLET PO SCH (08:12)
[2018-10-24] MEDS: ASPIRIN 81 MG TAB.CHEW PO SCH (08:12)
[2018-10-24] MEDS: LISINOPRIL 20 MG TABLET PO SCH (08:13)
[2018-10-24] MEDS: METOPROLOL SUCC 24HR ER 50 MG TAB.ER.24H. PO SCH (08:13)
[2018-10-24] MEDS: RIVASTIGMINE 4.6MG PATCH. TD SCH (08:21)
[2018-10-24] MEDS: SERTRALINE 50 MG TABLET. PO SCH (08:21)
[2018-10-24 15:29] VITALS: BP 108/70
[2018-10-24] MEDS: risperiDONE 0.5 MG TABLET. PO SCH (20:11)
--- NOTE | 2018-10-24 21:53 | PN ---
DATE: 10/22/2018 PSYCHIATRIC PROGRESS NOTE This late entry 10/22/2018 covers elements not covered in my initial note. SUBJECTIVE: I met with the patient in the evening. The patient slept 6 hours previous night. Appetite 80%, somewhat paranoid, confused, believes her family is stealing her home. REVIEW OF SYSTEMS: No CV, , pulmonary, eye, ENT system symptoms on review. Reliability poor. MENTAL STATUS EXAM: Oriented to herself. Insight, judgment, recent memory is impaired, remote is better. Language function intact. Attention span short. Mood and affect remain somewhat anxious, labile, paranoid, but better than before. LABORATORY DATA: Reviewed. IMPRESSION: Unchanged from initial note. PLAN: No change from initial note. MAN Charli COLIN MD DR: MICHAEL/arielle JOB#: [id number] / [id number]
--- NOTE | 2018-10-24 22:17 | PDOC ---
Exam Note: Vitaly Note: Please also refer to the separate dictated note~for this date of service dictated separately.~Patient seen individually. Discussed the patient with Nursing staff reviewed the chart.~Reviewed interim history and current functioning. Reviewed vital signs,~Labs/ Radiology~and current medications noted below. Continue current treatment with the changes noted in the dictated addendum note Assessment: Vital Signs/I&O: Vital Signs Date Time Temp Pulse Resp B/P (MAP) Pulse Ox O2 Delivery O2 Flow Rate FiO2 10/24/18 15:29 97.6 69 16 108/70 (83) 96 10/23/18 05:40 Room Air I & O 10/23/18 10/23/18 10/24/18 15:00 23:00 07:00 Intake Total 720 ml 240 ml 120 ml Balance 720 ml 240 ml 120 ml Current Medications: Meds: Current Medications Medications (Trade) Dose Ordered Sig/Cecilio Route PRN Reason Start Time Stop Time Status Last Admin Dose Admin Sertraline HCl (Zoloft) 50 mg DAILY PO 10/24/18 09:00 10/24/18 08:21 I have reviewed the current psychotropics carefully including drug interactions. Risk benefit ratio favors no change other than as noted in my dictated progress note. Diagnosis: Problems: (1) Major neurocognitive disorder, due to vascular disease, with behavioral disturbance, mild (2) Anxiety disorder (3) Dementia, vascular, with depression (4) Dementia, vascular, with delusions (5) Dementia in Alzheimer's disease with depression (6) Dementia in Alzheimer's disease with delusions (7) Impulse control disorder LIZ COLIN MD Oct 24, 2018 22:16
[2018-10-25 06:04] VITALS: BP 130/66
[2018-10-25] MEDS: FUROSEMIDE 20 MG TABLET PO SCH (08:21)
[2018-10-25] MEDS: LISINOPRIL 20 MG TABLET PO SCH (08:21)
[2018-10-25] MEDS: RIVASTIGMINE 4.6MG PATCH. TD SCH (08:22)
[2018-10-25] MEDS: METOPROLOL SUCC 24HR ER 50 MG TAB.ER.24H. PO SCH (08:22)
[2018-10-25] MEDS: SERTRALINE 50 MG TABLET. PO SCH (08:23)
[2018-10-25 16:00] VITALS: BP 108/66
[2018-10-25] MEDS: CHOLECALCIFEROL (VITAMIN D3) 50,000 UNIT CAPSULE PO SCH (20:36)
[2018-10-25] MEDS: risperiDONE 0.5 MG TABLET. PO SCH (20:37)
--- NOTE | 2018-10-25 22:31 | PDOC ---
Exam Note: Vitaly Note: Please also refer to the separate dictated note~for this date of service dictated separately.~Patient seen individually. Discussed the patient with Nursing staff reviewed the chart.~Reviewed interim history and current functioning. Reviewed vital signs,~Labs/ Radiology~and current medications noted below. Continue current treatment with the changes noted in the dictated addendum note Assessment: Vital Signs/I&O: Vital Signs Date Time Temp Pulse Resp B/P (MAP) Pulse Ox O2 Delivery O2 Flow Rate FiO2 10/25/18 16:00 98.9 61 16 108/66 (80) 96 10/23/18 05:40 Room Air I & O 10/24/18 10/24/18 10/25/18 14:59 22:59 06:59 Intake Total 840 ml 600 ml 240 ml Balance 840 ml 600 ml 240 ml Current Medications: Meds: Current Medications Medications (Trade) Dose Ordered Sig/Cecilio Route PRN Reason Start Time Stop Time Status Last Admin Dose Admin Vitamin D (Vitamin D3) 50,000 unit WEEKLY PO 10/25/18 21:00 10/25/18 20:36 I have reviewed the current psychotropics carefully including drug interactions. Risk benefit ratio favors no change other than as noted in my dictated progress note. Diagnosis: Problems: (1) Major neurocognitive disorder, due to vascular disease, with behavioral disturbance, mild (2) Anxiety disorder (3) Dementia, vascular, with depression (4) Dementia, vascular, with delusions (5) Dementia in Alzheimer's disease with depression (6) Dementia in Alzheimer's disease with delusions (7) Impulse control disorder LIZ COLIN MD Oct 25, 2018 22:31
--- NOTE | 2018-10-25 23:48 | PN ---
DATE: 10/24/2018 PSYCHIATRIC PROGRESS NOTE This late entry 10/24/2018 covers elements not covered in my initial note. SUBJECTIVE: I met with the patient in the evening. The patient slept 6-1/2 hours previous night. She remains somewhat paranoid, confused, believes her family is trying to steal from her. REVIEW OF SYSTEMS: No CV, , pulmonary, eye, ENT system symptoms on review. Reliability poor. MENTAL STATUS EXAM: Oriented to herself. Insight, judgment, recent and remote memory, attention, concentration, fund of knowledge poor, consistent with her diagnosis mentioned in my initial note. PLAN: No change from initial note. Exelon patch has been increased. Maintain Zoloft, Risperdal for now. MAN Charli COLIN MD DR: MICHAEL/arielle JOB#: [id number] / [id number]
--- NOTE | 2018-10-26 03:31 | PN ---
DATE: 10/23/2018 PSYCHIATRIC PROGRESS NOTE This late entry 10/23/2018 covers elements not covered in my initial note. SUBJECTIVE: I met with the patient in the evening. The patient slept 5-3/4 hours previous night. She is compliant with her medications, somewhat confused, paranoid, suspicious about her family taking her home. REVIEW OF SYSTEMS: No CV, , pulmonary, eye, or ENT system symptoms on review. MENTAL STATUS EXAM: Oriented to herself and situation. Speech has some latency, coherent. Abstraction fair, computation impaired, language function intact, attention span short. Mood and affect remain somewhat anxious, dysphoric, paranoid. LABORATORY DATA: Reviewed. IMPRESSION: Unchanged from initial note. PLAN: Increase Exelon patch from 4.6 to 9.5 mg a day after 5 days of 4.6. Maintain Zoloft, Risperdal, and Zoloft is being increased to 50 mg a day on 10/24. MAN Charli COLIN MD DR: MICHAEL/arielle JOB#: [id number] / [id number]
[2018-10-26 05:48] VITALS: BP 100/46
[2018-10-26] MEDS: SERTRALINE 50 MG TABLET. PO SCH (08:35)
[2018-10-26] MEDS: FUROSEMIDE 20 MG TABLET PO SCH (08:35)
[2018-10-26] MEDS: RIVASTIGMINE 9.5MG PATCH. TD SCH (08:39)
[2018-10-26] MEDS: METOPROLOL SUCC 24HR ER 50 MG TAB.ER.24H. PO SCH (08:40)
[2018-10-26] MEDS: LISINOPRIL 20 MG TABLET PO SCH (08:41)
[2018-10-26] MEDS: ASPIRIN 81 MG TAB.CHEW PO SCH (08:42)
[2018-10-26 08:43] VITALS: BP 155/74
--- NOTE | 2018-10-26 14:14 | PN ---
DATE: 10/25/2018 PSYCHIATRIC PROGRESS NOTE This late entry 10/25 covers elements not covered in my initial note. SUBJECTIVE: I met with the patient in the evening. The patient slept 6-3/4 hours previous night. She is disorganized, more so at night, does better during the day, but her story about being locked out of the home by the family is consistent each time. She believes they are trying to take her property. From all the information I have available to me, the patient's confusion had been worsening to a point where she walked out of their home and family at [place] call the authorities to help bring her in for assessment and treatment. REVIEW OF SYSTEMS: No CV, , pulmonary, eye, ENT system symptoms on review. MENTAL STATUS EXAM: Oriented to herself and situation. Speech has some latency, coherent. Abstraction fair. Computation impaired. Language function intact. Attention span short. Mood and affect somewhat anxious, labile. LABORATORY DATA: Reviewed. IMPRESSION: Unchanged from initial note. PLAN: No change from initial note. LIZ COLIN MD DR: MICHAEL/arielle JOB#: [id number] / [id number]
[2018-10-26 15:43] VITALS: BP 100/60
[2018-10-26] MEDS: risperiDONE 0.5 MG TABLET. PO SCH (19:51)
--- NOTE | 2018-10-26 22:11 | PDOC ---
Exam Note: Vitaly Note: Please also refer to the separate dictated note~for this date of service dictated separately.~Patient seen individually. Discussed the patient with Nursing staff reviewed the chart.~Reviewed interim history and current functioning. Reviewed vital signs,~Labs/ Radiology~and current medications noted below. Continue current treatment with the changes noted in the dictated addendum note Assessment: Vital Signs/I&O: Vital Signs Date Time Temp Pulse Resp B/P (MAP) Pulse Ox O2 Delivery O2 Flow Rate FiO2 10/26/18 15:43 98.2 70 20 100/60 (73) 96 10/23/18 05:40 Room Air I & O 10/25/18 10/25/18 10/26/18 14:59 22:59 06:59 Intake Total 600 ml 240 ml 120 ml Balance 600 ml 240 ml 120 ml Current Medications: Meds: Current Medications Medications (Trade) Dose Ordered Sig/Cecilio Route PRN Reason Start Time Stop Time Status Last Admin Dose Admin Rivastigmine (Exelon) 1 patch DAILY TD 10/26/18 09:00 10/26/18 08:39 I have reviewed the current psychotropics carefully including drug interactions. Risk benefit ratio favors no change other than as noted in my dictated progress note. Diagnosis: Problems: (1) Anxiety disorder (2) Dementia, vascular, with depression (3) Dementia, vascular, with delusions (4) Dementia in Alzheimer's disease with depression (5) Dementia in Alzheimer's disease with delusions (6) Impulse control disorder (7) Major neurocognitive disorder, due to vascular disease, with behavioral disturbance, mild LIZ COLIN MD Oct 26, 2018 22:11
[2018-10-27 05:56] VITALS: BP 146/81
[2018-10-27 07:10] LABS: BASO % 1 % (0-3); EOS # 0.1 x10^3/uL (0.0-0.7); EOS % 1 % (0-3); HEMATOCRIT 35.2 % (36.0-47.0); HEMOGLOBIN 11.8 g/dL (12.0-15.5); LYMPH # 1.2 x10^3/uL (1.0-4.8); LYMPH % 27 % (24-48); MEAN CORPUSCULAR HEMOGLOBIN 31 pg (25-35); MEAN CORPUSCULAR HGB CONC 34 g/dL (31-37); MEAN CORPUSCULAR VOLUME 93 fL (79-100); MONO # 0.4 x10^3/uL (0.0-1.1); MONO % 8 % (0-9); NEUT % 64 % (31-73); PLATELET COUNT 130 x10^3/uL (140-400); RED BLOOD COUNT 3.78 x10^6/uL (3.50-5.40); RED CELL DISTRIBUTION WIDTH 14.2 % (11.5-14.5); WHITE BLOOD COUNT 4.6 x10^3/uL (4.0-11.0)
[2018-10-27 07:32] LABS: ALBUMIN/GLOBULIN RATIO 0.9 (1.0-1.7); CALCIUM 8.7 mg/dL (8.5-10.1); GFR 53.2; POTASSIUM 4.1 mmol/L (3.5-5.1); TOTAL BILIRUBIN 0.4 mg/dL (0.2-1.0); TOTAL PROTEIN 6.4 g/dL (6.4-8.2)
[2018-10-27] MEDS: LISINOPRIL 20 MG TABLET PO SCH (07:55)
[2018-10-27] MEDS: FUROSEMIDE 20 MG TABLET PO SCH (07:55)
[2018-10-27] MEDS: METOPROLOL SUCC 24HR ER 50 MG TAB.ER.24H. PO SCH (07:56)
[2018-10-27] MEDS: RIVASTIGMINE 9.5MG PATCH. TD SCH (07:56)
[2018-10-27 15:56] VITALS: BP 110/58
[2018-10-27] MEDS: risperiDONE 0.5 MG TABLET. PO SCH (20:23)
--- NOTE | 2018-10-27 22:05 | PDOC ---
Exam Note: Vitaly Note: Please also refer to the separate dictated note~for this date of service dictated separately.~Patient seen individually. Discussed the patient with Nursing staff reviewed the chart.~Reviewed interim history and current functioning. Reviewed vital signs,~Labs/ Radiology~and current medications noted below. Continue current treatment with the changes noted in the dictated addendum note Assessment: Vital Signs/I&O: Vital Signs Date Time Temp Pulse Resp B/P (MAP) Pulse Ox O2 Delivery O2 Flow Rate FiO2 10/27/18 15:56 97.3 58 14 110/58 (75) 97 10/27/18 05:56 Room Air I & O 10/26/18 10/26/18 10/27/18 14:59 22:59 06:59 Intake Total 720 ml 240 ml 100 ml Balance 720 ml 240 ml 100 ml Labs: Laboratory Tests Test 10/27/18 06:20 White Blood Count 4.6 x10^3/uL (4.0-11.0) Red Blood Count 3.78 x10^6/uL (3.50-5.40) Hemoglobin 11.8 g/dL (12.0-15.5) L Hematocrit 35.2 % (36.0-47.0) L Mean Corpuscular Volume 93 fL (79-100) Mean Corpuscular Hemoglobin 31 pg (25-35) Mean Corpuscular Hemoglobin Concent 34 g/dL (31-37) Red Cell Distribution Width 14.2 % (11.5-14.5) Platelet Count 130 x10^3/uL (140-400) L Neutrophils (%) (Auto) 64 % (31-73) Lymphocytes (%) (Auto) 27 % (24-48) Monocytes (%) (Auto) 8 % (0-9) Eosinophils (%) (Auto) 1 % (0-3) Basophils (%) (Auto) 1 % (0-3) Neutrophils # (Auto) 3.0 x10^3uL (1.8-7.7) Lymphocytes # (Auto) 1.2 x10^3/uL (1.0-4.8) Monocytes # (Auto) 0.4 x10^3/uL (0.0-1.1) Eosinophils # (Auto) 0.1 x10^3/uL (0.0-0.7) Basophils # (Auto) 0.0 x10^3/uL (0.0-0.2) Sodium Level 140 mmol/L (136-145) Potassium Level 4.1 mmol/L (3.5-5.1) Chloride Level 102 mmol/L (98-107) Carbon Dioxide Level 32 mmol/L (21-32) Anion Gap 6 (6-14) Blood Urea Nitrogen 38 mg/dL (7-20) H Creatinine 1.0 mg/dL (0.6-1.0) Estimated GFR (Cockcroft-Gault) 53.2 BUN/Creatinine Ratio 38 (6-20) H Glucose Level 132 mg/dL (70-99) H Calcium Level 8.7 mg/dL (8.5-10.1) Total Bilirubin 0.4 mg/dL (0.2-1.0) Aspartate Amino Transferase (AST) 25 U/L (15-37) Alanine Aminotransferase (ALT) 27 U/L (14-59) Alkaline Phosphatase 50 U/L (46-116) Total Protein 6.4 g/dL (6.4-8.2) Albumin 3.0 g/dL (3.4-5.0) L Albumin/Globulin Ratio 0.9 (1.0-1.7) L Current Medications: Meds: Current Medications Medications (Trade) Dose Ordered Sig/Cecilio Route PRN Reason Start Time Stop Time Status Last Admin Dose Admin Fluvoxamine Maleate (Luvox) 25 mg DAILY PO 10/27/18 09:00 10/29/18 11:00 10/27/18 07:57 I have reviewed the current psychotropics carefully including drug interactions. Risk benefit ratio favors no change other than as noted in my dictated progress note. Diagnosis: Problems: (1) Anxiety disorder (2) Dementia, vascular, with depression (3) Dementia, vascular, with delusions (4) Dementia in Alzheimer's disease with depression (5) Hypernatremia (6) Dementia in Alzheimer's disease with delusions (7) Impulse control disorder (8) Major neurocognitive disorder, due to vascular disease, with behavioral d isturbance, mild LIZ COLIN MD Oct 27, 2018 22:05
--- NOTE | 2018-10-28 00:18 | PN ---
DATE: 10/26/2018 PSYCHIATRIC PROGRESS NOTE This late entry 10/26/2018 covers elements not covered in my initial note. SUBJECTIVE: I met with the patient in the evening. The patient slept 8-1/2 hours previous night. The patient remains confused, forgetful, minimized, but still convinced that family had locked her out of the home, is taking her belongings. Information from the family indicates a lot of hoarding that the patient has engaged in part of her progressive dementia and obsessiveness. She has been talking that her at the age of 72 and he has come back to be with another woman. REVIEW OF SYSTEMS: No CV, , pulmonary, eye, ENT system symptoms on review. Reliability poor. MENTAL STATUS EXAM: Oriented to herself. Insight, judgment, recent memory is impaired. Language function intact. Attention span short. Mood and affect remain somewhat anxious, labile. LABORATORY DATA: Reviewed. IMPRESSION: Unchanged from initial note. PLAN: No change from initial note. Given her significant OCD symptoms, we will change the Zoloft to Luvox 25 mg a day for 3 days, then 50 mg a day thereafter. Continue rest of the psychotropics unchanged and Exelon patch is being increased to 9.5 mg a day. MAN Charli COLIN MD DR: MICHAEL/arielle JOB#: [id number] / [id number]
[2018-10-28 05:59] VITALS: BP 135/76
[2018-10-28] MEDS: ASPIRIN 81 MG TAB.CHEW PO SCH (08:11)
[2018-10-28] MEDS: FUROSEMIDE 20 MG TABLET PO SCH (08:12)
[2018-10-28] MEDS: LISINOPRIL 20 MG TABLET PO SCH (08:12)
[2018-10-28] MEDS: RIVASTIGMINE 9.5MG PATCH. TD SCH (08:13)
[2018-10-28] MEDS: METOPROLOL SUCC 24HR ER 50 MG TAB.ER.24H. PO SCH (08:13)
[2018-10-28 16:30] VITALS: BP 112/67
[2018-10-28] MEDS: risperiDONE 0.5 MG TABLET. PO SCH (19:31)
--- NOTE | 2018-10-28 22:32 | PDOC ---
Exam Note: Vitaly Note: Please also refer to the separate dictated note~for this date of service dictated separately.~Patient seen individually. Discussed the patient with Nursing staff reviewed the chart.~Reviewed interim history and current functioning. Reviewed vital signs,~Labs/ Radiology~and current medications noted below. Continue current treatment with the changes noted in the dictated addendum note Assessment: Vital Signs/I&O: Vital Signs Date Time Temp Pulse Resp B/P (MAP) Pulse Ox O2 Delivery O2 Flow Rate FiO2 10/28/18 16:30 97.6 60 18 112/67 (82) 97 10/27/18 05:56 Room Air I & O 10/27/18 10/27/18 10/28/18 14:59 22:59 06:59 Intake Total 600 ml 360 ml 240 ml Balance 600 ml 360 ml 240 ml Current Medications: I have reviewed the current psychotropics carefully including drug interactions. Risk benefit ratio favors no change other than as noted in my dictated progress note. Diagnosis: Problems: (1) Anxiety disorder (2) Dementia, vascular, with depression (3) Dementia, vascular, with delusions (4) Dementia in Alzheimer's disease with depression (5) Dementia in Alzheimer's disease with delusions (6) Major neurocognitive disorder, due to vascular disease, with behavioral disturbance, mild (7) Impulse control disorder LIZ COLIN MD Oct 28, 2018 22:32
[2018-10-29 06:30] VITALS: BP 147/73
[2018-10-29] MEDS: METOPROLOL SUCC 24HR ER 50 MG TAB.ER.24H. PO SCH (09:37)
[2018-10-29] MEDS: LISINOPRIL 20 MG TABLET PO SCH (09:37)
[2018-10-29] MEDS: RIVASTIGMINE 9.5MG PATCH. TD SCH (09:38)
[2018-10-29 15:40] VITALS: BP 104/63
[2018-10-29] MEDS: risperiDONE 0.5 MG TABLET. PO SCH (20:18)
--- NOTE | 2018-10-29 22:06 | PN ---
DATE: 10/27/2018 PSYCHIATRIC PROGRESS NOTE. This late entry of 10/27/2018 covers the elements not covered in my initial note. SUBJECTIVE: I met with the patient in the evening. The patient slept 7-1/2 hours previous night. She remains confused, forgetful, minimizes circumstances prompting her admission. At times, nursing staff have noticed that she loses her thoughts and her words, gets agitated. She is still convinced that her family is trying to steal her property and they had locked her out of the house, which is the opposite of all the information we have so far including information from the police. REVIEW OF SYSTEMS: No CV, , pulmonary, eye, ENT system symptoms on review. Complains of some discomfort in her teeth dentures. MENTAL STATUS EXAM: Oriented to herself. Insight, judgment, recent and remote memory, attention, concentration, fund of knowledge poor, consistent with her diagnosis mentioned in my initial note. PLAN: No change from initial note. LIZ COLIN MD DR: MICHAEL/arielle JOB#: [id number] / [id number]
--- NOTE | 2018-10-29 22:10 | PDOC ---
Exam Note: Vitaly Note: Please also refer to the separate dictated note~for this date of service dictated separately.~Patient seen individually. Discussed the patient with Nursing staff reviewed the chart.~Reviewed interim history and current functioning. Reviewed vital signs,~Labs/ Radiology~and current medications noted below. Continue current treatment with the changes noted in the dictated addendum note Assessment: Vital Signs/I&O: Vital Signs Date Time Temp Pulse Resp B/P (MAP) Pulse Ox O2 Delivery O2 Flow Rate FiO2 10/29/18 15:40 98.5 20 20 104/63 (77) 98 Room Air I & O 10/28/18 10/28/18 10/29/18 15:00 23:00 07:00 Intake Total 720 ml 360 ml 240 ml Balance 720 ml 360 ml 240 ml Current Medications: I have reviewed the current psychotropics carefully including drug interactions. Risk benefit ratio favors no change other than as noted in my dictated progress note. Diagnosis: Problems: (1) Anxiety disorder (2) Dementia, vascular, with depression (3) Dementia, vascular, with delusions (4) Dementia in Alzheimer's disease with depression (5) Impulse control disorder (6) Dementia in Alzheimer's disease with delusions (7) Major neurocognitive disorder, due to vascular disease, with behavioral disturbance, mild LIZ COLIN MD Oct 29, 2018 22:10
--- NOTE | 2018-10-29 22:55 | PN ---
DATE: 10/28/2018 This late entry 10/28/2018 covers elements not covered in my initial note. SUBJECTIVE: I met with the patient in the evening. The patient slept 7 hours previous night. Appetite 75%. At treatment team meeting in the morning, we discussed her progress at length. The daughter has sent multiple pictures of significant holding in her home, disorganized and unsafe home environment. Reviewed all of this. She has been on the unit, pleasant, interactive, delusional that her family kicked her out, trying to take her property. REVIEW OF SYSTEMS: No CV, , pulmonary, eye, ENT system symptoms on review. Reliability poor. MENTAL STATUS EXAM: Oriented to herself. Insight, judgment, recent and remote memory, attention, concentration, fund of knowledge poor consistent with her diagnosis. She is quite obsessive. LABORATORY DATA: Reviewed. IMPRESSION: Unchanged from initial note. PLAN: No change from initial note. LIZ COLIN MD DR: MICHAEL/arielle JOB#: [id number] / [id number]
--- NOTE | 2018-10-30 00:47 | PN ---
DATE: 10/29/2018 PSYCHIATRIC PROGRESS NOTE This note covers elements not covered in my initial note, 10/29/2018. SUBJECTIVE: I met with the patient in the evening. The patient slept 6-1/4 hours previous night. She has been calm, compliant, interactive. She had many questions about the Luvox and seemed to understand the rationale for using it. She enjoys talking to another demented patient. REVIEW OF SYSTEMS: No CV, , pulmonary, eye, ENT system symptoms on review. Reliability poor. MENTAL STATUS EXAM: Oriented to herself and situation. Insight, judgment, recent memory is impaired, remote is better. Language function intact. Attention span short. Mood and affect remain somewhat anxious, labile, but improved. LABORATORY DATA: Reviewed. IMPRESSION: Unchanged from initial note. PLAN: No change from initial note. MAN Charli COLIN MD DR: MICHAEL/arielle JOB#: [id number] / [id number]
[2018-10-30 05:54] VITALS: BP 107/70
[2018-10-30] MEDS: ASPIRIN 81 MG TAB.CHEW PO SCH (08:15)
[2018-10-30] MEDS: LISINOPRIL 20 MG TABLET PO SCH (08:16)
[2018-10-30] MEDS: RIVASTIGMINE 9.5MG PATCH. TD SCH (08:17)
[2018-10-30] MEDS: METOPROLOL SUCC 24HR ER 50 MG TAB.ER.24H. PO SCH (09:00)
[2018-10-30 15:27] VITALS: BP 124/68
[2018-10-30] MEDS: risperiDONE 0.5 MG TABLET. PO SCH (19:43)
--- NOTE | 2018-10-31 05:24 | PN ---
DATE: 10/30/2018 SUBJECTIVE: The patient was seen today, met with the staff, chart reviewed and also covering for Dr. Dutta. Staff reports continued improvement, no major behavior problems and are planning for discharge in 10 days' time to return home. OBSERVATION: VITAL SIGNS: Temperature 98.6, blood pressure 107/70, pulse 59, respirations 18, O2 sat 97%. GENERAL: Slept about 6 hours last night. The patient is not presenting with any major physical problems at this time. MEDICATIONS: Reviewed. Currently on Luvox 50 mg daily, Exelon patch daily, Risperdal 0.5 mg at night. The patient's appetite is fair. The patient's labs showed hemoglobin at 11.8, platelet count 130, glucose fluctuated from 130 to 193. The patient's alkaline phosphatase was 44. The patient's urinalysis was within normal range. The patient is not exhibiting any side effects to the medications. The patient is cooperative and compliant with the treatments. ASSESSMENT: 1. Major neurocognitive disorder, Alzheimer's, vascular delusion, depression and behavioral disturbances. 2. Anxiety disorder, unspecified. 3. Impulse control disorder, unspecified. 4. 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 PLAN: Continue with the treatment. FRANK BOLANOS MD DR: MARSHA/arielle JOB#: [id number] / [id number]
[2018-10-31 06:19] VITALS: BP 108/69
[2018-10-31] MEDS: LISINOPRIL 20 MG TABLET PO SCH (07:58)
[2018-10-31] MEDS: METOPROLOL SUCC 24HR ER 50 MG TAB.ER.24H. PO SCH (07:59)
[2018-10-31] MEDS: RIVASTIGMINE 9.5MG PATCH. TD SCH (08:00)
[2018-10-31 16:57] VITALS: BP 123/70
[2018-10-31] MEDS: risperiDONE 0.5 MG TABLET. PO SCH (19:42)
--- NOTE | 2018-11-01 01:19 | PN ---
DATE: 10/31/2018 SUBJECTIVE: The patient was seen today, met with the staff, chart reviewed and also covering for Dr. Dutta. OBSERVATION: VITAL SIGNS: Temperature 98.1, blood pressure 134/83, pulse 76, respirations 18, O2 sat 96%. Slept about 7 hours last night. The patient's appetite is fair. LABORATORY DATA: The patient's lab reviewed. MEDICATIONS: The patient's medications include Luvox 50 mg daily, Exelon patch daily, Risperdal 0.5 mg at night. The patient continues to show improvement. The patient is planning to return home with home health, and discharge is planned for some time next week. ASSESSMENT: 1. Major neurocognitive disorder, Alzheimer's, vascular with delusion, depression, and behavioral disturbances. 2. Anxiety disorder, unspecified. 3. Impulse control disorder, unspecified. 4. 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 PLAN: To continue with the treatment. LENGTH OF STAY: 3-5 days. FRANK BOLANOS MD DR: MARSHA/arielle JOB#: [id number] / [id number]
[2018-11-01 06:12] VITALS: BP 130/72
[2018-11-01] MEDS: ASPIRIN 81 MG TAB.CHEW PO SCH (08:00)
[2018-11-01] MEDS: LISINOPRIL 20 MG TABLET PO SCH (08:01)
[2018-11-01] MEDS: RIVASTIGMINE 9.5MG PATCH. TD SCH (08:01)
[2018-11-01] MEDS: METOPROLOL SUCC 24HR ER 50 MG TAB.ER.24H. PO SCH (08:01)
[2018-11-01] MEDS: CHOLECALCIFEROL (VITAMIN D3) 50,000 UNIT CAPSULE PO SCH (08:02)
[2018-11-01 16:25] VITALS: BP 128/72
--- NOTE | 2018-11-01 19:12 | PN ---
DATE: 11/01/2018 SUBJECTIVE: The patient was seen today, met with the staff, chart reviewed, and covering for Dr. Dutta. OBSERVATION: VITAL SIGNS: Temperature 97.8, blood pressure 130/72, pulse 77, respirations 18, O2 sat 95%. Slept about 6-1/2 hours last night. The patient's appetite improved. Staff reports no major behavior problems. The patient is planned for discharge this week to return home and social service is working on the discharge plan. ASSESSMENT: 1. Major neurocognitive disorder, Alzheimer's, vascular with delusion, depression and behavioral disturbances. 2. Anxiety disorder, unspecified. 3. Impulse control disorder, unspecified. 4. 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 PLAN: Continue with the treatment. LENGTH OF STAY: Two to 3 days. FRANK BOLANOS MD DR: MARSHA/arielle JOB#: [id number] / [id number]
[2018-11-01] MEDS: risperiDONE 0.5 MG TABLET. PO SCH (20:20)
[2018-11-02 06:02] VITALS: BP 145/71
[2018-11-02] MEDS: LISINOPRIL 20 MG TABLET PO SCH (07:49)
[2018-11-02] MEDS: METOPROLOL SUCC 24HR ER 50 MG TAB.ER.24H. PO SCH (07:50)
[2018-11-02] MEDS: RIVASTIGMINE 9.5MG PATCH. TD SCH (07:50)
[2018-11-02 09:47] LABS: BASO % 1 % (0-3); EOS % 1 % (0-3); HEMATOCRIT 36.2 % (36.0-47.0); HEMOGLOBIN 12.1 g/dL (12.0-15.5); LYMPH # 0.8 x10^3/uL (1.0-4.8); LYMPH % 11 % (24-48); MEAN CORPUSCULAR HEMOGLOBIN 31 pg (25-35); MEAN CORPUSCULAR HGB CONC 34 g/dL (31-37); MEAN CORPUSCULAR VOLUME 93 fL (79-100); MONO # 0.4 x10^3/uL (0.0-1.1); MONO % 5 % (0-9); NEUT # 6.3 x10^3uL (1.8-7.7); NEUT % 83 % (31-73); PLATELET COUNT 139 x10^3/uL (140-400); RED BLOOD COUNT 3.88 x10^6/uL (3.50-5.40); RED CELL DISTRIBUTION WIDTH 14.4 % (11.5-14.5); WHITE BLOOD COUNT 7.5 x10^3/uL (4.0-11.0)
[2018-11-02 09:50] LABS: ALBUMIN 3.4 g/dL (3.4-5.0); ALBUMIN/GLOBULIN RATIO 0.9 (1.0-1.7); CALCIUM 8.9 mg/dL (8.5-10.1); CREATININE 0.9 mg/dL (0.6-1.0); GFR 60.1; POTASSIUM 4.2 mmol/L (3.5-5.1); TOTAL BILIRUBIN 0.4 mg/dL (0.2-1.0)
[2018-11-02 16:10] VITALS: BP 124/77
[2018-11-02] MEDS: risperiDONE 0.5 MG TABLET. PO SCH (20:34)
[2018-11-02] MEDS: ACETAMINOPHEN 325 MG TABLET PO PRN (22:48)
--- NOTE | 2018-11-03 03:36 | PN ---
DATE: 11/02/2018 SUBJECTIVE: The patient was seen today, met with the staff, chart reviewed. Staff reports continued improvement. Her gait is stable. The patient has not shown any major behavior problems today. OBSERVATION: VITAL SIGNS: Stable. GENERAL: She is sleeping better. Her appetite has improved. MEDICATIONS: Reviewed. Currently on fluvoxamine 50 mg daily, Exelon patch daily, Risperdal 0.5 mg at night. The patient is not having any side effects. LABORATORY DATA: The patient's lab reviewed. No change from the previous levels. ASSESSMENT: 1. Major neurocognitive disorder, Alzheimer with delusions, depression and behavioral disturbances. 2. Anxiety disorder, unspecified. 3. Impulse control disorder, unspecified. 4. Rule out bipolar disorder type 1, mixed, with psychotic features. PLAN: To continue with the treatment. LENGTH OF STAY: 2 to 3 days. The patient is in the process for discharge and the child protective services social worker started working with the discharge plan. FRANK BOLANOS MD DR: MARSHA/arielle JOB#: [id number] / [id number]
[2018-11-03 06:15] VITALS: BP 133/70
[2018-11-03] MEDS: RIVASTIGMINE 9.5MG PATCH. TD SCH (08:32)
[2018-11-03] MEDS: LISINOPRIL 20 MG TABLET PO SCH (08:33)
[2018-11-03] MEDS: METOPROLOL SUCC 24HR ER 50 MG TAB.ER.24H. PO SCH (08:33)
[2018-11-03] MEDS: ASPIRIN 81 MG TAB.CHEW PO SCH (08:35)
[2018-11-03 15:42] VITALS: BP 164/72
[2018-11-03] MEDS: risperiDONE 0.5 MG TABLET. PO SCH (20:24)
--- NOTE | 2018-11-03 23:15 | PN ---
DATE: 11/03/2018 SUBJECTIVE: The patient was seen today, met with the staff, chart reviewed and also covering for Dr. Dutta. Staff reports no major behavior problems. The patient is able to walk. No falls. OBSERVATION: VITAL SIGNS: Temperature 97.8, blood pressure 133/70, pulse 60, respiration 16, O2 sat 95%. Slept about 6-1/2 hours last night. The patient's appetite improved. MEDICATIONS: The patient's current medications include fluvoxamine 50 mg daily, Exelon patch daily, Risperdal 0.5 mg at night. The patient denies of any side effects to medications. The patient's lab reviewed. ASSESSMENT: 1. Major neurocognitive disorder, Alzheimer's with the delusions, depression, and behavioral disturbances. 2. Anxiety disorder, unspecified. 3. Impulse control disorder, unspecified. 4. Rule out bipolar disorder type 1, mixed with psychotic features. PLAN: To continue with the treatment and to stay. Plan for discharge this week. FRANK BOLANOS MD DR: MARSHA/arielle JOB#: [id number] / [id number]
[2018-11-04 06:05] VITALS: BP 130/77
[2018-11-04] MEDS: METOPROLOL SUCC 24HR ER 50 MG TAB.ER.24H. PO SCH (08:57)
[2018-11-04] MEDS: RIVASTIGMINE 9.5MG PATCH. TD SCH (08:58)
[2018-11-04] MEDS: LISINOPRIL 20 MG TABLET PO SCH (08:58)
[2018-11-04 15:53] VITALS: BP 114/63
[2018-11-04] MEDS: risperiDONE 0.5 MG TABLET. PO SCH (19:41)
--- NOTE | 2018-11-05 00:42 | PN ---
DATE: 11/04/2018 SUBJECTIVE: The patient was seen today, met with the staff, chart reviewed. The patient is still confused, continues to have short-term memory deficits. Has periods of increased agitation. OBSERVATION: VITAL SIGNS: Temperature 98.4, blood pressure 130/77, pulse 67, respirations 18, O2 sat 97%. Slept about 5 hours last night. The patient's appetite is fair. MEDICATIONS: The patient's current medications include fluvoxamine 50 mg daily, Exelon patch daily, Risperdal 0.5 mg at night. The patient is not having any side effects to the medications. The patient has not had any falls. The patient's lab reviewed. ASSESSMENT: 1. Major neurocognitive disorder, Alzheimer's with delusions, depression, behavioral disturbances. 2. Anxiety disorder, unspecified. 3. Impulse control disorder, unspecified. 4. Rule out bipolar disorder type 1, mixed, with psychotic features. PLAN: To continue with the treatment. security services specialist exploring discharge options. LENGTH OF STAY: 2 to 3 days. FRANK BOLANOS MD DR: MARSHA/arielle JOB#: [id number] / [id number]
[2018-11-05 06:08] VITALS: BP 103/48
[2018-11-05] MEDS: RIVASTIGMINE 9.5MG PATCH. TD SCH (08:43)
[2018-11-05] MEDS: ASPIRIN 81 MG TAB.CHEW PO SCH (08:43)
[2018-11-05] MEDS: LISINOPRIL 20 MG TABLET PO SCH (08:44)
[2018-11-05] MEDS: METOPROLOL SUCC 24HR ER 50 MG TAB.ER.24H. PO SCH (08:45)
[2018-11-05 15:49] VITALS: BP 122/72
[2018-11-05] MEDS: risperiDONE 0.5 MG TABLET. PO SCH (19:39)
--- NOTE | 2018-11-05 22:43 | PN ---
DATE: 11/05/2018 SUBJECTIVE: The patient was seen today, met with the staff, chart reviewed. The patient's behavior has improved. Continues to have short-term memory deficits and also periods of increased agitation. OBJECTIVE: VITAL SIGNS: Temperature 98.6, blood pressure 103/48, pulse 64, respirations 18, O2 sat 96%. GENERAL: Slept about 7 hours last night. The patient's appetite is improved. CURRENT MEDICATIONS: Include fluvoxamine 50 mg daily, Exelon patch daily, Risperdal 0.5 mg at night. The patient has not had any falls. The patient's lab reviewed. ASSESSMENT: 1. Major neurocognitive disorder, Alzheimer's with delusions, depression, behavioral disturbances. 2. Anxiety disorder, unspecified. 3. Impulse control disorder, unspecified. PLAN: To continue with the treatment and the patient is planned for discharge next week. Apparently, she will be going to [facility]. FRANK BOLANOS MD DR: MARSHA/arielle JOB#: [id number] / [id number]
[2018-11-06 06:12] VITALS: BP 131/76
[2018-11-06] MEDS: METOPROLOL SUCC 24HR ER 50 MG TAB.ER.24H. PO SCH (08:49)
[2018-11-06] MEDS: LISINOPRIL 20 MG TABLET PO SCH (08:50)
[2018-11-06] MEDS: RIVASTIGMINE 9.5MG PATCH. TD SCH (08:50)
[2018-11-06 15:43] VITALS: BP 162/77
[2018-11-06] MEDS: risperiDONE 0.5 MG TABLET. PO SCH (19:48)
--- NOTE | 2018-11-06 21:58 | PDOC ---
Exam Note: Vitaly Note: Please also refer to the separate dictated note~for this date of service dictated separately.~Patient seen individually. Discussed the patient with Nursing staff reviewed the chart.~Reviewed interim history and current functioning. Reviewed vital signs,~Labs/ Radiology~and current medications noted below. Continue current treatment with the changes noted in the dictated addendum note Assessment: Vital Signs/I&O: Vital Signs Date Time Temp Pulse Resp B/P (MAP) Pulse Ox O2 Delivery O2 Flow Rate FiO2 11/06/18 15:43 97.9 61 16 162/77 (105) 95 Room Air I & O 11/05/18 11/05/18 11/06/18 15:00 23:00 07:00 Intake Total 720 ml 600 ml Balance 720 ml 600 ml Current Medications: I have reviewed the current psychotropics carefully including drug interactions. Risk benefit ratio favors no change other than as noted in my dictated progress note. Diagnosis: Problems: (1) Anxiety disorder (2) Dementia, vascular, with depression (3) Dementia, vascular, with delusions (4) Dementia in Alzheimer's disease with depression (5) Hypernatremia (6) Impulse control disorder (7) Dementia in Alzheimer's disease with delusions (8) Acute kidney injury (9) Hyperglycemia (10) Thrombocytopenia (11) Major neurocognitive disorder, due to vascular disease, with behavioral disturbance, mild (12) Dehydration LIZ COLIN MD Nov 06, 2018 21:58
[2018-11-07 06:10] VITALS: BP 117/54
[2018-11-07] MEDS: METOPROLOL SUCC 24HR ER 50 MG TAB.ER.24H. PO SCH (08:15)
[2018-11-07] MEDS: LISINOPRIL 20 MG TABLET PO SCH (08:16)
[2018-11-07] MEDS: RIVASTIGMINE 9.5MG PATCH. TD SCH (08:16)
[2018-11-07] MEDS: ASPIRIN 81 MG TAB.CHEW PO SCH (08:18)
[2018-11-07 16:46] VITALS: BP 138/79
[2018-11-07] MEDS: risperiDONE 0.5 MG TABLET. PO SCH (20:52)
--- NOTE | 2018-11-07 22:38 | PDOC ---
Exam Note: Vitaly Note: Please also refer to the separate dictated note~for this date of service dictated separately.~Patient seen individually. Discussed the patient with Nursing staff reviewed the chart.~Reviewed interim history and current functioning. Reviewed vital signs,~Labs/ Radiology~and current medications noted below. Continue current treatment with the changes noted in the dictated addendum note Assessment: Vital Signs/I&O: Vital Signs Date Time Temp Pulse Resp B/P (MAP) Pulse Ox O2 Delivery O2 Flow Rate FiO2 11/07/18 16:46 98.3 65 16 138/79 (98) 97 11/06/18 15:43 Room Air I & O 11/06/18 11/06/18 11/07/18 14:59 22:59 06:59 Intake Total 720 ml 240 ml 0 ml Balance 720 ml 240 ml 0 ml Current Medications: I have reviewed the current psychotropics carefully including drug interactions. Risk benefit ratio favors no change other than as noted in my dictated progress note. Diagnosis: Problems: (1) Anxiety disorder (2) Dementia, vascular, with depression (3) Dementia, vascular, with delusions (4) Dementia in Alzheimer's disease with depression (5) Impulse control disorder (6) Major neurocognitive disorder, due to vascular disease, with behavioral disturbance, mild (7) Dementia in Alzheimer's disease with delusions LIZ COLIN MD Nov 07, 2018 22:38
[2018-11-08 06:03] VITALS: BP 131/71
[2018-11-08 08:08] LABS: BASO % 1 % (0-3); EOS # 0.1 x10^3/uL (0.0-0.7); EOS % 1 % (0-3); HEMATOCRIT 37.4 % (36.0-47.0); HEMOGLOBIN 12.4 g/dL (12.0-15.5); LYMPH # 1.2 x10^3/uL (1.0-4.8); LYMPH % 17 % (24-48); MEAN CORPUSCULAR HEMOGLOBIN 31 pg (25-35); MEAN CORPUSCULAR HGB CONC 33 g/dL (31-37); MEAN CORPUSCULAR VOLUME 94 fL (79-100); MONO # 0.7 x10^3/uL (0.0-1.1); MONO % 10 % (0-9); NEUT % 72 % (31-73); PLATELET COUNT 162 x10^3/uL (140-400)
[2018-11-08] MEDS: LISINOPRIL 20 MG TABLET PO SCH (08:10)
[2018-11-08] MEDS: METOPROLOL SUCC 24HR ER 50 MG TAB.ER.24H. PO SCH (08:10)
[2018-11-08] MEDS: RIVASTIGMINE 9.5MG PATCH. TD SCH (08:11)
[2018-11-08] MEDS: CHOLECALCIFEROL (VITAMIN D3) 50,000 UNIT CAPSULE PO SCH (08:12)
[2018-11-08 08:28] LABS: ALBUMIN 3.3 g/dL (3.4-5.0); ALBUMIN/GLOBULIN RATIO 0.9 (1.0-1.7); CALCIUM 9.2 mg/dL (8.5-10.1); CREATININE 0.9 mg/dL (0.6-1.0); GFR 60.1; POTASSIUM 4.4 mmol/L (3.5-5.1); TOTAL BILIRUBIN 0.3 mg/dL (0.2-1.0)
--- NOTE | 2018-11-08 15:52 | PN ---
DATE: 11/06/2018 This late entry, 11/06/2018, covers the elements not covered in my initial note. SUBJECTIVE: I met with the patient in the evening. The patient slept 5-1/4 hours previous night. She is oriented to situation and date of and her name, somewhat delusional about the family as before. I have reviewed information with Dr. Rodriguez who covered for me over the past 1 week. She attended groups with the activity therapist, has been delusional, talking about her , but then came back to life. She is somewhat obsessive, less anxious. REVIEW OF SYSTEMS: No CV, , pulmonary, eye, ENT system symptoms on review. Reliability poor. MENTAL STATUS EXAM: Oriented to herself. Insight, judgment, recent and remote memory, attention, concentration, fund of knowledge poor, consistent with her diagnosis mentioned in my initial note. PLAN: No change from initial note. Maintain Luvox, Risperdal, Exelon patch, may need to increase Luvox gradually. MAN Charli COLIN MD DR: MICHAEL/arielle JOB#: [id number] / [id number]
[2018-11-08 16:32] VITALS: BP 138/74
[2018-11-08] MEDS: risperiDONE 0.5 MG TABLET. PO SCH (21:04)
--- NOTE | 2018-11-08 22:33 | PDOC ---
Exam Note: Vitaly Note: Please also refer to the separate dictated note~for this date of service dictated separately.~Patient seen individually. Discussed the patient with Nursing staff reviewed the chart.~Reviewed interim history and current functioning. Reviewed vital signs,~Labs/ Radiology~and current medications noted below. Continue current treatment with the changes noted in the dictated addendum note Assessment: Vital Signs/I&O: Vital Signs Date Time Temp Pulse Resp B/P (MAP) Pulse Ox O2 Delivery O2 Flow Rate FiO2 11/08/18 16:32 97.7 62 20 138/74 (95) 99 11/06/18 15:43 Room Air I & O 11/07/18 11/07/18 11/08/18 14:59 22:59 06:59 Intake Total 960 ml 480 ml Balance 960 ml 480 ml Labs: Laboratory Tests Test 11/08/18 07:37 White Blood Count 7.0 x10^3/uL (4.0-11.0) Red Blood Count 4.00 x10^6/uL (3.50-5.40) Hemoglobin 12.4 g/dL (12.0-15.5) Hematocrit 37.4 % (36.0-47.0) Mean Corpuscular Volume 94 fL (79-100) Mean Corpuscular Hemoglobin 31 pg (25-35) Mean Corpuscular Hemoglobin Concent 33 g/dL (31-37) Red Cell Distribution Width 14.0 % (11.5-14.5) Platelet Count 162 x10^3/uL (140-400) Neutrophils (%) (Auto) 72 % (31-73) Lymphocytes (%) (Auto) 17 % (24-48) L Monocytes (%) (Auto) 10 % (0-9) H Eosinophils (%) (Auto) 1 % (0-3) Basophils (%) (Auto) 1 % (0-3) Neutrophils # (Auto) 5.0 x10^3uL (1.8-7.7) Lymphocytes # (Auto) 1.2 x10^3/uL (1.0-4.8) Monocytes # (Auto) 0.7 x10^3/uL (0.0-1.1) Eosinophils # (Auto) 0.1 x10^3/uL (0.0-0.7) Basophils # (Auto) 0.0 x10^3/uL (0.0-0.2) Sodium Level 142 mmol/L (136-145) Potassium Level 4.4 mmol/L (3.5-5.1) Chloride Level 106 mmol/L (98-107) Carbon Dioxide Level 31 mmol/L (21-32) Anion Gap 5 (6-14) L Blood Urea Nitrogen 27 mg/dL (7-20) H Creatinine 0.9 mg/dL (0.6-1.0) Estimated GFR (Cockcroft-Gault) 60.1 BUN/Creatinine Ratio 30 (6-20) H Glucose Level 99 mg/dL (70-99) Calcium Level 9.2 mg/dL (8.5-10.1) Total Bilirubin 0.3 mg/dL (0.2-1.0) Aspartate Amino Transferase (AST) 35 U/L (15-37) Alanine Aminotransferase (ALT) 54 U/L (14-59) Alkaline Phosphatase 82 U/L (46-116) Total Protein 7.0 g/dL (6.4-8.2) Albumin 3.3 g/dL (3.4-5.0) L Albumin/Globulin Ratio 0.9 (1.0-1.7) L Current Medications: I have reviewed the current psychotropics carefully including drug interactions. Risk benefit ratio favors no change other than as noted in my dictated progress note. Diagnosis: Problems: (1) Dementia, vascular, with depression (2) Dementia, vascular, with delusions (3) Dementia in Alzheimer's disease with depression (4) Impulse control disorder (5) Dementia in Alzheimer's disease with delusions (6) Major neurocognitive disorder, due to vascular disease, with behavioral disturbance, mild (7) Anxiety disorder LIZ COLIN MD Nov 08, 2018 22:33
--- NOTE | 2018-11-09 02:22 | PN ---
DATE: 11/07/2018 PSYCHIATRIC PROGRESS NOTE This late entry 11/07/2018 covers elements not covered in my initial note. SUBJECTIVE: I met with the patient in the evening. The patient slept 3 hours previous night. She has been anxious, somewhat delusional, confused, very upset that she may have to go to a longterm when I addressed this with her at some length individually. She tends to gravitate towards one of the other demented male patients confusing him for relative of hers. REVIEW OF SYSTEMS: No CV, , pulmonary, eye, ENT system symptoms on review. Reliability poor. She is hard of hearing. MENTAL STATUS EXAM: Oriented to herself, at times situation. Speech is coherent, abstraction fair, computation impaired, language function intact, attention span short. Mood and affect remain somewhat anxious and labile. LABORATORY DATA: Reviewed. IMPRESSION: Unchanged from initial note. PLAN: No change from initial note. MAN Charli COLIN MD DR: MICHAEL/arielle JOB#: [id number] / [id number]
[2018-11-09 06:07] VITALS: BP 106/64
[2018-11-09] MEDS: METOPROLOL SUCC 24HR ER 50 MG TAB.ER.24H. PO SCH (07:53)
[2018-11-09] MEDS: LISINOPRIL 20 MG TABLET PO SCH (07:53)
[2018-11-09] MEDS: RIVASTIGMINE 9.5MG PATCH. TD SCH (07:54)
[2018-11-09] MEDS: ASPIRIN 81 MG TAB.CHEW PO SCH (07:55)
[2018-11-09 16:08] VITALS: BP 146/73
[2018-11-09] MEDS: risperiDONE 0.5 MG TABLET. PO SCH (20:09)
[2018-11-09] MEDS: ACETAMINOPHEN 325 MG TABLET PO PRN (20:14)
--- NOTE | 2018-11-09 22:03 | PN ---
DATE: 11/08/2018 PSYCHIATRIC PROGRESS NOTE This is a late entry 11/08/2018, covers the elements not covered in my initial note. SUBJECTIVE: I met with the patient evening of 11/08/2018. The patient slept 5-3/4 hours previous night. Previous evening, she was quite delusional, felt there were ants in the bathroom, upset regarding transition to [facility]. Spending much time with her roommate. REVIEW OF SYSTEMS: No CV, , pulmonary, eye system symptoms on review, somewhat hard of hearing. MENTAL STATUS EXAM: Oriented to herself. Insight, judgment, recent and remote memory, attention, concentration, fund of knowledge poor, consistent with her diagnosis mentioned in my initial note. PLAN: No change from initial note. MAN Charli COLIN MD DR: MICHAEL/arielle JOB#: [id number] / [id number]
--- NOTE | 2018-11-09 22:35 | PDOC ---
Exam Note: Vitaly Note: Please also refer to the separate dictated note~for this date of service dictated separately.~Patient seen individually. Discussed the patient with Nursing staff reviewed the chart.~Reviewed interim history and current functioning. Reviewed vital signs,~Labs/ Radiology~and current medications noted below. Continue current treatment with the changes noted in the dictated addendum note Assessment: Vital Signs/I&O: Vital Signs Date Time Temp Pulse Resp B/P (MAP) Pulse Ox O2 Delivery O2 Flow Rate FiO2 11/09/18 16:08 97.8 67 16 146/73 (97) 95 11/06/18 15:43 Room Air I & O 11/08/18 11/08/18 11/09/18 14:59 22:59 06:59 Intake Total 600 ml 240 ml 120 ml Balance 600 ml 240 ml 120 ml Current Medications: I have reviewed the current psychotropics carefully including drug interactions. Risk benefit ratio favors no change other than as noted in my dictated progress note. Diagnosis: Problems: (1) Dementia, vascular, with depression (2) Anxiety disorder (3) Dementia, vascular, with delusions (4) Dementia in Alzheimer's disease with depression (5) Impulse control disorder (6) Dementia in Alzheimer's disease with delusions (7) Major neurocognitive disorder, due to vascular disease, with behavioral disturbance, mild LIZ COLIN MD Nov 09, 2018 22:35
[2018-11-10] MEDS ORDERED: METH29OI TP (01:40)
[2018-11-10] MEDS ORDERED: MAG30ORA2 PO (01:42)
[2018-11-10] MEDS ORDERED: ACET325T21 PO (01:42)
[2018-11-10] MEDS ORDERED: CHOL500021 PO (01:43)
[2018-11-10] MEDS ORDERED: MAGN400O7 PO (01:43)
[2018-11-10] MEDS ORDERED: FLUV50TA2 PO (01:44)
[2018-11-10] MEDS ORDERED: RIVA1PAT23 TD (01:46)
[2018-11-10 06:07] VITALS: BP 144/76
[2018-11-10 09:29] VITALS: BP 144/76
[2018-11-10] MEDS: LISINOPRIL 20 MG TABLET PO SCH (09:29)
[2018-11-10] MEDS: METOPROLOL SUCC 24HR ER 50 MG TAB.ER.24H. PO SCH (09:29)
[2018-11-10] MEDS: RIVASTIGMINE 9.5MG PATCH. TD SCH (09:30)
--- NOTE | 2018-11-10 18:43 | PDOC ---
Exam Note: Vitaly Note: Please also refer to the separate dictated note~for this date of service dictated separately.~Patient seen individually. Discussed the patient with Nursing staff reviewed the chart.~Reviewed interim history and current functioning. Reviewed vital signs,~Labs/ Radiology~and current medications noted below. Continue current treatment with the changes noted in the dictated addendum note Assessment: Vital Signs/I&O: Vital Signs Date Time Temp Pulse Resp B/P (MAP) Pulse Ox O2 Delivery O2 Flow Rate FiO2 11/10/18 09:29 61 144/76 11/10/18 06:07 98.3 18 95 Room Air I & O 11/09/18 11/09/18 11/10/18 15:00 23:00 07:00 Intake Total 600 ml 240 ml Balance 600 ml 240 ml Current Medications: I have reviewed the current psychotropics carefully including drug interactions. Risk benefit ratio favors no change other than as noted in my dictated progress note. Diagnosis: Problems: (1) Major neurocognitive disorder, due to vascular disease, with behavioral disturbance, mild (2) Dementia in Alzheimer's disease with delusions (3) Impulse control disorder (4) Dementia in Alzheimer's disease with depression (5) Dementia, vascular, with delusions (6) Dementia, vascular, with depression (7) Anxiety disorder LIZ COLIN MD Nov 10, 2018 18:42
--- NOTE | 2018-11-11 15:12 | PN ---
DATE: 11/09/2018 PSYCHIATRIC PROGRESS NOTE This late entry 11/09/2018, covers elements not covered in my initial note. SUBJECTIVE: I met with the patient in the evening. The patient slept 6-1/2 hours previous night. The patient remains somewhat confused, anxious, believes her family is taking her property, minimizes her memory deficits. REVIEW OF SYSTEMS: No CV, , pulmonary, eye, ENT system symptoms on review, somewhat hard of hearing. MENTAL STATUS EXAM: Oriented to herself. Insight, judgment, recent and remote memory, attention, concentration, fund of knowledge poor, consistent with her diagnosis mentioned in my initial note. PLAN: No change from initial note. MAN Charli COLIN MD DR: MICHAEL/arielle JOB#: [id number] / [id number]
--- NOTE | 2018-11-12 10:37 | DS ---
DATE OF DISCHARGE: 11/10/2018 DISCHARGE SUMMARY AND PSYCHIATRIC PROGRESS NOTE This late entry, 11/10/2018, covers elements not covered in my initial note. REASON FOR ADMISSION: Please refer to the admission history for details. Briefly, the patient is an 83-year-old female referred to us from [facility] Medical/Surgical floor by Dr. Recinos after she was medically stabilized following her admission consequent to increased confusion, being delusional, paranoid, having active hallucinations. Reportedly, the police had [place] She was agitated, yelling at staff on 1 . She had locked herself out of the home where she was living in confusion and delusions that worsened to a point where her behaviors were dangerous, unmanageable, which is what brought her to the Emergency Room. SIGNIFICANT FINDINGS AND CLINICAL COURSE: Following admission, the patient was seen daily individually by myself from a psychiatric standpoint, medical followup with Dr. Recinos. The patient remained somewhat confused, forgetful, paranoid, believed her daughters were trying to take her property. She was oblivious of the circumstances prompting admission, minimized her memory deficits with very limited insight. Adjustments were made in her psychotropics. She seemed to respond to a combination of Risperdal 0.5 mg at bedtime. She was also extremely obsessive, ruminative and did better on Luvox 50 mg a day and Exelon patch was adjusted to 9.5 mg daily. REVIEW OF SYSTEMS: Prior to discharge on 11/10/2018, no CV, , pulmonary, eye, ENT system symptoms on review. MENTAL STATUS EXAM: Oriented to herself, at times situation. Speech has some latency, coherent, somewhat hard of hearing. Abstraction fair, computation impaired, language function intact, attention span short. Mood and affect remained somewhat anxious, obsessive, but much improved, less paranoid and delusional. Labs reviewed. No suicidal or homicidal ideation prior to discharge. CONDITION AT DISCHARGE: Improved. FINAL DIAGNOSES: Major neurocognitive disorder; Alzheimer; vascular with delusion; depression; behavioral disturbance; anxiety disorder, unspecified; impulse control disorder, unspecified; rest unchanged. DISCHARGE MEDICATIONS: Please refer to the [facility]. DISCHARGE INSTRUCTIONS: Outpatient psychiatric and medical followup at the senior living. Time for discharge day management greater than 30 minutes. MAN Charli COLIN MD DR: MICHAEL/arielle JOB#: [id number] / [id number]
== END 2018-11-10 14:40 | DRG 57 ==
LOC: GEROPSY 14:17
PROVIDERS: ADMIT Psychiatry & Neurology Psychiatry; ATTEND Psychiatry & Neurology Psychiatry
DX: G30.9 Alzheimer's disease, unspecified (principal); E87.0 Hyperosmolality and hypernatremia; F01.51 Vascular dementia, unspecified severity, with behavioral disturbance; F31.60 Bipolar disorder, current episode mixed, unspecified; F02.81 Dementia in other diseases classified elsewhere, unspecified severity, with behavioral disturbance; N17.9 Acute kidney failure, unspecified; D69.6 Thrombocytopenia, unspecified; E86.0 Dehydration; F41.9 Anxiety disorder, unspecified; F63.9 Impulse disorder, unspecified; N18.9 Chronic kidney disease, unspecified; I12.9 Hypertensive chronic kidney disease with stage 1 through stage 4 chronic kidney disease, or unspecified chronic kidney disease
CPT/HCPCS: 36415; 70450; 80053; 80061; 81001; 82306; 83036; 83540; 83550; 83735; 84436; 84443; 84480; 85025; 86592; 87086

== ENCOUNTER 2018-12-15 11:40 | Inpatient (IN) | payer MEDICARE, OTHER ==
[~2018-12-15] VITALS: Ht 157.5 cm; Wt 61.3 kg
[~2018-12-15 11:40] MED LIST changes: +ACET325T21 PO; +CHOL500021 PO; +FLUV50TA2 PO; +LISI1TAB PO; -LISI1TAB5 PO; +MAG30ORA2 PO; +MAGN400O7 PO; +METH29OI TP; +RIVA1PAT23 TD
[2018-12-15 12:55] LABS: BASO # 0.1 x10^3/uL (0.0-0.2); BASO % 1 % (0-3); EOS % 0 % (0-3); HEMATOCRIT 38.6 % (36.0-47.0); HEMOGLOBIN 12.9 g/dL (12.0-15.5); LYMPH # 1.5 x10^3/uL (1.0-4.8); LYMPH % 16 % (24-48); MEAN CORPUSCULAR HEMOGLOBIN 31 pg (25-35); MEAN CORPUSCULAR HGB CONC 33 g/dL (31-37); MEAN CORPUSCULAR VOLUME 93 fL (79-100); MONO # 0.7 x10^3/uL (0.0-1.1); MONO % 7 % (0-9); NEUT # 7.2 x10^3uL (1.8-7.7); NEUT % 76 % (31-73); PLATELET COUNT 142 x10^3/uL (140-400); RED BLOOD COUNT 4.15 x10^6/uL (3.50-5.40); WHITE BLOOD COUNT 9.5 x10^3/uL (4.0-11.0)
[2018-12-15 13:08] LABS: ALBUMIN 3.7 g/dL (3.4-5.0); ALBUMIN/GLOBULIN RATIO 1.1 (1.0-1.7); CREATININE 0.9 mg/dL (0.6-1.0); GFR 60.1; MAGNESIUM 2.1 mg/dL (1.8-2.4); POTASSIUM 3.9 mmol/L (3.5-5.1); TOTAL BILIRUBIN 0.4 mg/dL (0.2-1.0); TOTAL PROTEIN 7.2 g/dL (6.4-8.2)
--- NOTE | 2018-12-15 13:30 | PHYS DOC ---
Past History Past Medical History: Hypertension, Other Past Surgical History: Other Alcohol Use: Occasionally Drug Use: None Adult General Chief Complaint Chief Complaint: PSYCH EVALUATION HPI HPI Patient is a 83 year old female who presents to the emergency department for medical clearance. The patient has been accepted to the [facility] unit here at [facility]. Per protocol, the patient has arrived to the emergency department for medical clearance prior to admission. Patient has been having behavioral problems at her assisted. Has been accepted by Dr. Dutta for admission pending medical exam. Patient is a somewhat poor historian but is otherwise pleasant and has no other complaints. Review of Systems Review of Systems Constitutional: Denies fever or chills [] Eyes: Denies change in visual acuity, redness, or eye pain [] HENT: Denies nasal congestion or sore throat [] Respiratory: Denies cough or shortness of breath [] Cardiovascular: Denies chest pain or edema[] GI: Denies abdominal pain, nausea, vomiting, bloody stools or diarrhea [] : Denies dysuria or hematuria [] Musculoskeletal: Denies back pain or joint pain [] Integument: Denies rash or skin lesions [] Neurologic: Denies headache, focal weakness or sensory changes [] All other systems were reviewed and found to be within normal limits, except as documented in this note. Allergies Allergies Allergies Coded Allergies Type Severity Reaction Last Updated Verified No Known Drug Allergies 10/16/18 No Physical Exam Physical Exam Constitutional: Well developed, well nourished, no acute distress, non-toxic appearance. [] HENT: Normocephalic, atraumatic, bilateral external ears normal, oropharynx moist, no oral exudates, nose normal. [] Eyes: PERRLA, EOMI, conjunctiva normal, no discharge. [] Neck: Normal range of motion, no tenderness, supple, no stridor. [] Cardiovascular:Heart rate regular rhythm, no murmur [] Lungs & Thorax: Bilateral breath sounds clear to auscultation [] Abdomen: Bowel sounds normal, soft, no tenderness, no masses, no pulsatile masses. [] Skin: Warm, dry, no erythema, no rash. [] Back: No tenderness, no CVA tenderness. [] Extremities: No tenderness, no cyanosis, no clubbing, ROM intact, no edema. [] Neurologic: Alert and oriented X 3, normal motor function, normal sensory function, no focal deficits noted. [] Psychologic: Affect normal, judgement normal, mood normal. [] Current Patient Data Vital Signs Vital Signs Date Time Temp Pulse Resp B/P (MAP) Pulse Ox O2 Delivery O2 Flow Rate FiO2 12/15/18 13:41 98.4 70 20 94 Room Air Lab Results Laboratory Tests Test 12/15/18 12:35 White Blood Count 9.5 x10^3/uL (4.0-11.0) Red Blood Count 4.15 x10^6/uL (3.50-5.40) Hemoglobin 12.9 g/dL (12.0-15.5) Hematocrit 38.6 % (36.0-47.0) Mean Corpuscular Volume 93 fL (79-100) Mean Corpuscular Hemoglobin 31 pg (25-35) Mean Corpuscular Hemoglobin Concent 33 g/dL (31-37) Red Cell Distribution Width 14.0 % (11.5-14.5) Platelet Count 142 x10^3/uL (140-400) Neutrophils (%) (Auto) 76 % (31-73) H Lymphocytes (%) (Auto) 16 % (24-48) L Monocytes (%) (Auto) 7 % (0-9) Eosinophils (%) (Auto) 0 % (0-3) Basophils (%) (Auto) 1 % (0-3) Neutrophils # (Auto) 7.2 x10^3uL (1.8-7.7) Lymphocytes # (Auto) 1.5 x10^3/uL (1.0-4.8) Monocytes # (Auto) 0.7 x10^3/uL (0.0-1.1) Eosinophils # (Auto) 0.0 x10^3/uL (0.0-0.7) Basophils # (Auto) 0.1 x10^3/uL (0.0-0.2) Sodium Level 140 mmol/L (136-145) Potassium Level 3.9 mmol/L (3.5-5.1) Chloride Level 103 mmol/L (98-107) Carbon Dioxide Level 29 mmol/L (21-32) Anion Gap 8 (6-14) Blood Urea Nitrogen 16 mg/dL (7-20) Creatinine 0.9 mg/dL (0.6-1.0) Estimated GFR (Cockcroft-Gault) 60.1 BUN/Creatinine Ratio 18 (6-20) Glucose Level 112 mg/dL (70-99) H Calcium Level 9.0 mg/dL (8.5-10.1) Magnesium Level 2.1 mg/dL (1.8-2.4) Total Bilirubin 0.4 mg/dL (0.2-1.0) Aspartate Amino Transferase (AST) 40 U/L (15-37) H Alanine Aminotransferase (ALT) 21 U/L (14-59) Alkaline Phosphatase 61 U/L (46-116) Total Protein 7.2 g/dL (6.4-8.2) Albumin 3.7 g/dL (3.4-5.0) Albumin/Globulin Ratio 1.1 (1.0-1.7) EKG EKG Interpreted by me: Heart rate 66, sinus rhythm, left axis deviation, no acute ST/T-wave abnormalities present[] Radiology/Procedures Radiology/Procedures Not performed[] Course & Med Decision Making Course & Med Decision Making Pertinent Labs and Imaging studies reviewed. (See chart for details) Patient's lab work studies reviewed. No significant acute abnormalities noted. Patient is medically cleared for admission to [facility] unit.[] Dragon Disclaimer Dragon Disclaimer This electronic medical record was generated, in whole or in part, using a voice recognition dictation system. Departure Departure: Impression: Primary Impression: Medical clearance for psychiatric admission Disposition: ADMITTED INPATIENT Admitting Physician: Other Condition: STABLE Referrals: MOHINI CALL MD (PCP) LANDEN BEAL MD Dec 15, 2018 13:30
--- NOTE | 2018-12-15 13:38 | EKG ---
[address] [address] Test Date: 2018-12-15 Test Time: 13:19:27 Pat Name: ENRRIQUE TENORIO Department: Room: Gender: F Certified Recreational Therapist: TAYLOR : 1935 Requested By: LANDEN BEAL Order Number: [id number] Reading MD: Gautam Muhammad MD Measurements Intervals [place] Rate: 66 P: 4 [place]: 188 QRS: -43 QRSD: 82 T: 2 QT: 398 QTc: 419 Interpretive Statements SINUS RHYTHM Electronically Signed On 12-29-2018 0:30:33 CDT by Gautam Muhammad MD
[2018-12-15 14:41] LABS: BACTERIA,URINE FEW /HPF (0-FEW); BILIRUBIN,URINE NEG (NEG); CLARITY,URINE HAZY; COLOR,URINE YELLOW; GLUCOSE,URINE NEG (NEG); NITRITE,URINE NEG (NEG); SQUAMOUS EPITHELIAL CELL,UR FEW /LPF; UROBILINOGEN,URINE 1 mg/dL (0.2 mg/dL)
[2018-12-15 17:04] VITALS: BP 161/91
[2018-12-15] MEDS ORDERED: MAGNESIUM HYDROXIDE 2,400 MG/30 ML ORAL.SUSP. PO PRN (17:15)
[2018-12-15] MEDS ORDERED: MAG HYDROX/AL HYDROX/SIMETH 30 ML ORAL.SUSP PO PRN (17:15)
[2018-12-15] MEDS ORDERED: ACETAMINOPHEN 325 MG TABLET PO PRN (17:15)
[2018-12-15] MEDS ORDERED: METHYL SALICYLATE/MENTHOL TOPICAL OINTMENT 29GM TUBE. TP PRN (17:15)
--- NOTE | 2018-12-15 20:49 | PDOC ---
Exam Note: Vitaly Note: Please also refer to the separate dictated note~for this date of service dictated separately. Discussed the patient with Nursing staff reviewed the chart.~Reviewed interim history and current functioning. Reviewed vital signs,~Labs/ Radiology~and current medications noted below. Continue current treatment with the changes noted in the dictated addendum note Assessment: Vital Signs/I&O: Vital Signs Date Time Temp Pulse Resp B/P (MAP) Pulse Ox O2 Delivery O2 Flow Rate FiO2 12/15/18 17:04 97.0 83 20 161/91 (114) 96 12/15/18 14:56 Room Air Labs: Laboratory Tests Test 12/15/18 12:35 12/15/18 14:11 White Blood Count 9.5 x10^3/uL (4.0-11.0) Red Blood Count 4.15 x10^6/uL (3.50-5.40) Hemoglobin 12.9 g/dL (12.0-15.5) Hematocrit 38.6 % (36.0-47.0) Mean Corpuscular Volume 93 fL (79-100) Mean Corpuscular Hemoglobin 31 pg (25-35) Mean Corpuscular Hemoglobin Concent 33 g/dL (31-37) Red Cell Distribution Width 14.0 % (11.5-14.5) Platelet Count 142 x10^3/uL (140-400) Neutrophils (%) (Auto) 76 % (31-73) H Lymphocytes (%) (Auto) 16 % (24-48) L Monocytes (%) (Auto) 7 % (0-9) Eosinophils (%) (Auto) 0 % (0-3) Basophils (%) (Auto) 1 % (0-3) Neutrophils # (Auto) 7.2 x10^3uL (1.8-7.7) Lymphocytes # (Auto) 1.5 x10^3/uL (1.0-4.8) Monocytes # (Auto) 0.7 x10^3/uL (0.0-1.1) Eosinophils # (Auto) 0.0 x10^3/uL (0.0-0.7) Basophils # (Auto) 0.1 x10^3/uL (0.0-0.2) Sodium Level 140 mmol/L (136-145) Potassium Level 3.9 mmol/L (3.5-5.1) Chloride Level 103 mmol/L (98-107) Carbon Dioxide Level 29 mmol/L (21-32) Anion Gap 8 (6-14) Blood Urea Nitrogen 16 mg/dL (7-20) Creatinine 0.9 mg/dL (0.6-1.0) Estimated GFR (Cockcroft-Gault) 60.1 BUN/Creatinine Ratio 18 (6-20) Glucose Level 112 mg/dL (70-99) H Calcium Level 9.0 mg/dL (8.5-10.1) Magnesium Level 2.1 mg/dL (1.8-2.4) Total Bilirubin 0.4 mg/dL (0.2-1.0) Aspartate Amino Transferase (AST) 40 U/L (15-37) H Alanine Aminotransferase (ALT) 21 U/L (14-59) Alkaline Phosphatase 61 U/L (46-116) Total Protein 7.2 g/dL (6.4-8.2) Albumin 3.7 g/dL (3.4-5.0) Albumin/Globulin Ratio 1.1 (1.0-1.7) Urine Collection Type Unknown Urine Color Yellow Urine Clarity Hazy Urine pH 6.5 Urine Specific Ken[place] 1.020 Urine Protein Neg (NEG-TRACE) Urine Glucose (UA) Neg mg/dL (NEG) Urine Ketones (Stick) Neg mg/dL (NEG) Urine Blood Neg (NEG) Urine Nitrite Neg (NEG) Urine Bilirubin Neg (NEG) Urine Urobilinogen Dipstick 1 mg/dL (0.2 mg/dL) Urine Leukocyte Esterase Neg (NEG) Urine RBC 1-2 /HPF (0-2) Urine WBC 1-4 /HPF (0-4) Urine Squamous Epithelial Cells Few /LPF Urine Bacteria Few /HPF (0-FEW) Urine Mucus Mod /LPF Current Medications: Meds: Current Medications Medications (Trade) Dose Ordered Sig/Cecilio Route PRN Reason Start Time Stop Time Status Last Admin Dose Admin Risperidone (RisperDAL) 0.25 mg QHS PO 12/15/18 21:00 12/15/18 20:18 I have reviewed the current psychotropics carefully including drug interactions. Risk benefit ratio favors no change other than as noted in my dictated progress note. 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
[2018-12-15] MEDS ORDERED: risperiDONE 0.25 MG TABLET. PO SCH (21:00)
[2018-12-16 06:06] VITALS: BP 119/75
[2018-12-16] MEDS: LISINOPRIL 20 MG TABLET PO SCH (09:27)
[2018-12-16] MEDS: METOPROLOL SUCC 24HR ER 50 MG TAB.ER.24H. PO SCH (09:28)
[2018-12-16] MEDS: RIVASTIGMINE 9.5MG PATCH. TD SCH (09:30)
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
[2018-12-16 16:03] VITALS: BP 126/72
[2018-12-16] MEDS: risperiDONE 0.5 MG TABLET. PO SCH (19:49)
--- NOTE | 2018-12-16 22:20 | PDOC ---
Exam Note: Vitaly Note: Please also refer to the separate dictated note~for this date of service dictated separately.~Patient seen individually. Discussed the patient with Nursing staff reviewed the chart.~Reviewed interim history and current functioning. Reviewed vital signs,~Labs/ Radiology~and current medications noted below. Continue current treatment with the changes noted in the dictated addendum note Assessment: Vital Signs/I&O: Vital Signs Date Time Temp Pulse Resp B/P (MAP) Pulse Ox O2 Delivery O2 Flow Rate FiO2 12/16/18 16:03 97.0 56 16 126/72 (90) 95 12/16/18 06:06 Room Air I & O 12/15/18 12/15/18 12/16/18 15:00 23:00 07:00 Intake Total 720 ml Balance 720 ml Current Medications: Meds: Current Medications Medications (Trade) Dose Ordered Sig/Cecilio Route PRN Reason Start Time Stop Time Status Last Admin Dose Admin Rivastigmine (Exelon) 1 patch DAILY TD 12/16/18 09:00 12/16/18 09:32 Fluvoxamine Maleate (Luvox) 50 mg DAILY PO 12/16/18 09:00 12/16/18 10:26 DC 12/16/18 09:32 Lisinopril (Prinivil) 20 mg DAILY PO 12/16/18 09:00 12/16/18 09:32 Metoprolol Succinate (Toprol Xl) 50 mg DAILY PO 12/16/18 09:00 12/16/18 09:32 Risperidone (RisperDAL) 0.5 mg QHS PO 12/16/18 21:00 12/16/18 19:49 I have reviewed the current psychotropics carefully including drug interactions. Risk benefit ratio favors no change other than as noted in my dictated progress note. 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
[2018-12-17 05:53] VITALS: BP 19/70
[2018-12-17] MEDS: RIVASTIGMINE 9.5MG PATCH. TD SCH (07:55)
[2018-12-17] MEDS: METOPROLOL SUCC 24HR ER 50 MG TAB.ER.24H. PO SCH (07:56)
[2018-12-17] MEDS: LISINOPRIL 20 MG TABLET PO SCH (07:57)
[2018-12-17] MEDS: ASPIRIN 81 MG TAB.CHEW PO SCH (07:59)
--- NOTE | 2018-12-17 14:11 | CONS ---
DATE OF CONSULTATION: 12/16/2018 REASON FOR CONSULTATION: Medical management. HISTORY OF PRESENT ILLNESS: The patient is an 83-year-old female patient, a resident at [facility] who was [facility] on account of exit seeking, wandering, increased agitation, barricading herself in room, delusional, thinking she needs to go to [place] to see her mom and , in thinking they have diet, had to be one-on-one, all this in a background of major neurocognitive disorder, Alzheimer, vascular delusion, depression, and behavioral disturbances. PAST MEDICAL HISTORY: Significant for hypertension, thrombocytopenia. PAST SURGICAL HISTORY: Unremarkable. ALLERGIES: She has no known drug allergies. MEDICATIONS: She is currently on following medications: She is on rivastigmine for Exelon 9.5 mg per hour patch topically daily. She is on metoprolol succinate 50 mg once a day, lisinopril 20 mg once a day, aspirin 81 mg once a day. She is on analgesic balm applied topically 4 times a day, acetaminophen 650 mg every 6 hours, fluvoxamine 50 mg daily, risperidone 0.25 mg at bedtime. She is on Mylanta 15 mL after meals, magnesium hydroxide, milk of magnesia 30 mL p.o. daily p.r.n. for constipation, cholecalciferol, vitamin D3 50,000 international units once a week. FAMILY HISTORY: Noncontributory. SOCIAL HISTORY: She is a resident at [facility]. She does not smoke, drink alcohol or use recreational drugs. PHYSICAL EXAMINATION: GENERAL: When I saw her this afternoon, she was sitting in her chair, eating her dinner comfortably, in no apparent distress. There was no pallor, jaundice, cyanosis. No thyromegaly, no jugular venous distention or limb edema. VITAL SIGNS: Her heart rate was 56, blood pressure 126/72, temperature was 97, respiratory rate was 16, and oxygen saturation was 95%. HEAD, EYES, EARS, NOSE AND THROAT: Normocephalic, atraumatic. NECK: Supple. HEART: Showed normal first and second heart sounds with no gallop, rub or murmur. CHEST: Clear to auscultation. No crepitation or rhonchi. ABDOMEN: Distended, soft, nontender. No guarding or rigidity. No organomegaly. All hernial orifices intact. Bowel sounds normal. NEUROLOGIC: She is awake, alert, responding appropriately. All her cranial nerves intact. EXTREMITIES: She moves all extremities without difficulty. She ambulates without assistance or assistive devices. LABORATORY DATA: Showed that her white cell count was 9500, hemoglobin 13, hematocrit 39, MCV 93, and platelet count of 142,000. Her serum sodium 140, potassium 3.9, chloride 103, bicarbonate was 29, anion gap of 8, BUN 16, creatinine 0.9, estimated GFR was 60 mL per minute, her glucose 112, calcium was 9, magnesium was 2.1. Serum iron was 127, TIBC was 364 and iron saturation was 35. Total bilirubin, AST, ALT, alkaline phosphatase were normal. Total protein was 7.2, albumin was 3.7. Her urinalysis showed the urine was yellow, hazy with a pH of 6.5, specific gravity 1.020. The urine was negative for protein, glucose, ketones, blood, nitrite and leukocyte esterase. There were only 1-2 rbc's, 1-4 wbc's, very few bacteria. So, all in all, she seemed to be generally medically stable. PLAN: My plan is obviously to review all the lab work that is still pending at the time of this dictation and make any necessary recommendation. Thank you, Dr. Dutta for allowing me to participate in the care of this patient. MEG DE LA RCUZ MD DR: ERIN/arielle JOB#: [id number] / [id number]
[2018-12-17 15:52] VITALS: BP 134/69
[2018-12-17] MEDS: risperiDONE 0.5 MG TABLET. PO SCH (19:40)
--- NOTE | 2018-12-17 22:09 | PDOC ---
Exam Note: Vitaly Note: Please also refer to the separate dictated note~for this date of service dictated separately.~Patient seen individually. Discussed the patient with Nursing staff reviewed the chart.~Reviewed interim history and current functioning. Reviewed vital signs,~Labs/ Radiology~and current medications noted below. Continue current treatment with the changes noted in the dictated addendum note Assessment: Vital Signs/I&O: Vital Signs Date Time Temp Pulse Resp B/P (MAP) Pulse Ox O2 Delivery O2 Flow Rate FiO2 12/17/18 15:52 98.0 74 20 134/69 (90) 97 Room Air I & O 12/16/18 12/16/18 12/17/18 14:59 22:59 06:59 Intake Total 720 ml 360 ml Balance 720 ml 360 ml Current Medications: Meds: Current Medications Medications (Trade) Dose Ordered Sig/Cecilio Route PRN Reason Start Time Stop Time Status Last Admin Dose Admin Aspirin (Children'S Aspirin) 81 mg QODAY PO 12/17/18 09:00 12/17/18 08:02 Fluvoxamine Maleate (Luvox) 75 mg DAILY PO 12/17/18 09:00 12/17/18 08:02 I have reviewed the current psychotropics carefully including drug interactions. Risk benefit ratio favors no change other than as noted in my dictated progress note. Diagnosis: Problems: (1) Anxiety disorder (2) Dementia, vascular, with depression (3) Dementia, vascular, with delusions (4) Dementia in Alzheimer's disease with depression (5) Impulse control disorder (6) Dementia in Alzheimer's disease with delusions (7) Major neurocognitive disorder, due to vascular disease, with behavioral disturbance, mild (8) Major neurocognitive disorder LIZ COLIN MD Dec 17, 2018 22:09
--- NOTE | 2018-12-17 23:06 | PN ---
DATE: 12/16/2018 PSYCHIATRIC PROGRESS NOTE This late entry 12/16/2018, covers the elements not covered in my initial note. SUBJECTIVE: I met with the patient in the evening of 12/16/2018. Staffed at a treatment team meeting with the entire team in the morning. The patient slept 7-1/4 hours previous night. Appetite is fair. Previous night, she was yelling, agitated, stating she had 2 jobs to do, needed to leave and then making statements that she would be better off . She is obsessive, anxious, confused. CT head on 12/14/2018 showed atrophy in volume loss, chronic small vessel disease, no acute changes. REVIEW OF SYSTEMS: No CV, , pulmonary, eye, ENT system symptoms on review. MENTAL STATUS EXAM: Oriented to herself. Insight, judgment, recent and remote memory, attention, concentration, fund of knowledge poor, consistent with her diagnoses. IMPRESSION: Major neurocognitive disorder, Alzheimer, vascular with delusion, depression, behavioral disturbance; anxiety disorder, unspecified; impulse control disorder, unspecified. PLAN: She remains somewhat obsessive. We will increase Luvox from 50 mg daily to 75 mg daily, Risperdal from 0.25 mg daily to 0.5 mg daily, which is what she was discharged on from her last hospitalization. May consider Depakote as a mood stabilizer depending on how she does with these changes. Continue Exelon patch 9.5 mg a day. MAN Charli COLIN MD DR: MICHAEL/arielle JOB#: [id number] / [id number]
[2018-12-18 06:22] VITALS: BP 122/69
[2018-12-18] MEDS: LISINOPRIL 20 MG TABLET PO SCH (08:20)
[2018-12-18] MEDS: METOPROLOL SUCC 24HR ER 50 MG TAB.ER.24H. PO SCH (08:21)
[2018-12-18] MEDS: RIVASTIGMINE 9.5MG PATCH. TD SCH (08:21)
[2018-12-18 16:27] VITALS: BP 128/71
[2018-12-18] MEDS: risperiDONE 0.5 MG TABLET. PO SCH (19:37)
--- NOTE | 2018-12-18 23:05 | PDOC ---
Exam Note: Vitaly Note: Please also refer to the separate dictated note~for this date of service dictated separately.~Patient seen individually. Discussed the patient with Nursing staff reviewed the chart.~Reviewed interim history and current functioning. Reviewed vital signs,~Labs/ Radiology~and current medications noted below. Continue current treatment with the changes noted in the dictated addendum note Assessment: Vital Signs/I&O: Vital Signs Date Time Temp Pulse Resp B/P (MAP) Pulse Ox O2 Delivery O2 Flow Rate FiO2 12/18/18 16:27 98.0 62 16 128/71 (90) 96 12/18/18 06:22 Room Air I & O 12/17/18 12/17/18 12/18/18 15:00 23:00 07:00 Intake Total 960 ml 480 ml Balance 960 ml 480 ml Current Medications: I have reviewed the current psychotropics carefully including drug interactions. Risk benefit ratio favors no change other than as noted in my dictated progress note. Diagnosis: Problems: (1) Anxiety disorder (2) Dementia, vascular, with depression (3) Dementia, vascular, with delusions (4) Dementia in Alzheimer's disease with depression (5) Impulse control disorder (6) Dementia in Alzheimer's disease with delusions (7) Major neurocognitive disorder, due to vascular disease, with behavioral disturbance, mild (8) Major neurocognitive disorder (9) Medical clearance for psychiatric admission LIZ COLIN MD Dec 18, 2018 23:05
[2018-12-19 05:50] VITALS: BP 124/71
[2018-12-19] MEDS: ASPIRIN 81 MG TAB.CHEW PO SCH (08:13)
[2018-12-19] MEDS: LISINOPRIL 20 MG TABLET PO SCH (08:13)
[2018-12-19] MEDS: RIVASTIGMINE 9.5MG PATCH. TD SCH (08:14)
[2018-12-19] MEDS: METOPROLOL SUCC 24HR ER 50 MG TAB.ER.24H. PO SCH (08:14)
[2018-12-19 16:20] VITALS: BP 125/70
[2018-12-19] MEDS: risperiDONE 0.5 MG TABLET. PO SCH (19:38)
--- NOTE | 2018-12-19 22:24 | PDOC ---
Exam Note: Vitaly Note: Please also refer to the separate dictated note~for this date of service dictated separately.~Patient seen individually. Discussed the patient with Nursing staff reviewed the chart.~Reviewed interim history and current functioning. Reviewed vital signs,~Labs/ Radiology~and current medications noted below. Continue current treatment with the changes noted in the dictated addendum note Assessment: Vital Signs/I&O: Vital Signs Date Time Temp Pulse Resp B/P (MAP) Pulse Ox O2 Delivery O2 Flow Rate FiO2 12/19/18 16:20 97.9 66 18 125/70 (88) 96 12/19/18 05:50 Room Air I & O 12/18/18 12/18/18 12/19/18 15:00 23:00 07:00 Intake Total 480 ml 240 ml Balance 480 ml 240 ml Current Medications: I have reviewed the current psychotropics carefully including drug interactions. Risk benefit ratio favors no change other than as noted in my dictated progress note. 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
--- NOTE | 2018-12-20 01:29 | PN ---
DATE: 12/17/2018 PSYCHIATRIC PROGRESS NOTE This late entry of 12/17/2018 covers elements not covered in my initial note. SUBJECTIVE: I met with the patient on the evening of 12/17/2018. The patient slept 7-1/2 hours previous night. She has been confused, very talkative with Simona and other patient. She has been disorganized, distractible, wanting to go home, oblivious of the circumstances prompting admission where she came from. She is somewhat obsessive hoarding things, wanting to put things in the closet, talking about Jerald's 50th birthday. REVIEW OF SYSTEMS: No CV, , PULMONARY, EYE, ENT system symptoms on review. Reliability somewhat poor. MENTAL STATUS EXAM: Oriented to herself. Insight, judgment, recent and remote memory, attention, concentration, fund of knowledge poor, consistent with her diagnosis mentioned in my initial note. PLAN: No change from initial note. We have adjusted the Luvox. Maintain Risperdal. Continue the Exelon patch. MAN Charli COLIN MD DR: MICHAEL/arielle JOB#: [id number] / [id number]
[2018-12-20 05:37] VITALS: BP 123/70
[2018-12-20] MEDS: LISINOPRIL 20 MG TABLET PO SCH (07:51)
[2018-12-20] MEDS: METOPROLOL SUCC 24HR ER 50 MG TAB.ER.24H. PO SCH (07:51)
[2018-12-20] MEDS: RIVASTIGMINE 9.5MG PATCH. TD SCH (07:52)
[2018-12-20 16:02] VITALS: BP 118/67
[2018-12-20] MEDS: risperiDONE 0.5 MG TABLET. PO SCH (19:39)
--- NOTE | 2018-12-20 22:21 | PN ---
DATE: 12/18/2018 PSYCHIATRIC PROGRESS NOTE. This late entry of 12/18/2018 covers the elements not covered in my initial note. SUBJECTIVE: I met with the patient in the evening of 12/18/2018. The patient slept 6-1/2 hours previous night. She has been more interactive with other patients than her roommate. She is irritable regarding being hospitalized and paranoid. REVIEW OF SYSTEMS: No CV, , pulmonary, eye, ENT system symptoms on review. Reliability poor. MENTAL STATUS EXAM: Oriented to herself. Insight, judgment, recent and remote memory, attention, concentration, fund of knowledge poor, consistent with her diagnosis mentioned in my initial note. PLAN: No change from initial note. Maintain Risperdal, Luvox which has been increased together with Exelon patch for now. MAN Charli COLIN MD DR: MICHAEL/arielle JOB#: [id number] / [id number]
--- NOTE | 2018-12-20 22:34 | PN ---
DATE: 12/19/2018 PSYCHIATRIC PROGRESS NOTE This late entry 12/19/2018 covers elements not covered in my initial note. SUBJECTIVE: I met with the patient in the evening of 12/19/2018. The patient slept 6-3/4 hours previous night. She has been somewhat irritable in the morning, but later calm, compliant, confused. REVIEW OF SYSTEMS: No CV, , pulmonary, eye, ENT system symptoms on review. Reliability poor. MENTAL STATUS EXAM: Oriented to herself. Insight, judgment, recent and remote memory, attention, concentration, fund of knowledge poor, consistent with her diagnosis mentioned in my initial note. PLAN: No change from initial note. MAN Charli COLIN MD DR: MICHAEL/arielle JOB#: [id number] / [id number]
[2018-12-21 05:37] VITALS: BP 154/73
[2018-12-21] MEDS: ASPIRIN 81 MG TAB.CHEW PO SCH (08:07)
[2018-12-21] MEDS: LISINOPRIL 20 MG TABLET PO SCH (08:09)
[2018-12-21] MEDS: METOPROLOL SUCC 24HR ER 50 MG TAB.ER.24H. PO SCH (08:10)
[2018-12-21] MEDS: RIVASTIGMINE 9.5MG PATCH. TD SCH (08:10)
--- NOTE | 2018-12-21 08:45 | PDOC ---
Exam Note: Vitaly Note: Late entry for DOS 12/20/2018. Please also refer to the separate dictated note~for this date of service dictated separately.~Patient seen individually. Discussed the patient with Nursing staff reviewed the chart.~Reviewed interim history and current functioning. Reviewed vital signs,~Labs/ Radiology~and current medications noted below. Continue current treatment with the changes noted in the dictated addendum note Assessment: Vital Signs/I&O: Vital Signs Date Time Temp Pulse Resp B/P (MAP) Pulse Ox O2 Delivery O2 Flow Rate FiO2 12/21/18 08:10 76 154/73 12/21/18 05:37 97.3 20 96 Room Air I & O 12/20/18 12/20/18 12/21/18 14:59 22:59 06:59 Intake Total 940 ml 240 ml 120 ml Balance 940 ml 240 ml 120 ml Current Medications: I have reviewed the current psychotropics carefully including drug interactions. Risk benefit ratio favors no change other than as noted in my dictated progress note. 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
[2018-12-21 10:00] LABS: BASO % 1 % (0-3); EOS # 0.1 x10^3/uL (0.0-0.7); EOS % 1 % (0-3); HEMATOCRIT 37.6 % (36.0-47.0); HEMOGLOBIN 12.4 g/dL (12.0-15.5); LYMPH # 1.1 x10^3/uL (1.0-4.8); LYMPH % 24 % (24-48); MEAN CORPUSCULAR HEMOGLOBIN 31 pg (25-35); MEAN CORPUSCULAR HGB CONC 33 g/dL (31-37); MEAN CORPUSCULAR VOLUME 94 fL (79-100); MONO # 0.3 x10^3/uL (0.0-1.1); MONO % 7 % (0-9); NEUT % 66 % (31-73); PLATELET COUNT 142 x10^3/uL (140-400); RED CELL DISTRIBUTION WIDTH 13.9 % (11.5-14.5); WHITE BLOOD COUNT 4.6 x10^3/uL (4.0-11.0)
[2018-12-21 10:11] LABS: ALBUMIN 3.2 g/dL (3.4-5.0); ALBUMIN/GLOBULIN RATIO 0.9 (1.0-1.7); GFR 53.2; POTASSIUM 4.2 mmol/L (3.5-5.1); TOTAL BILIRUBIN 0.2 mg/dL (0.2-1.0); TOTAL PROTEIN 6.8 g/dL (6.4-8.2)
[2018-12-21 15:36] VITALS: BP 154/71
[2018-12-21] MEDS ORDERED: traZODone 50 MG TABLET. PO PRN (17:00)
[2018-12-21] MEDS: risperiDONE 0.5 MG TABLET. PO SCH (19:52)
[2018-12-21] MEDS: MIRTAZAPINE 7.5 MG TABLET. PO SCH (19:53)
[2018-12-21] MEDS: traZODone 50 MG TABLET. PO SCH (19:53)
--- NOTE | 2018-12-21 22:19 | PDOC ---
Exam Note: Vitaly Note: Please also refer to the separate dictated note~for this date of service dictated separately.~Patient seen individually. Discussed the patient with Nursing staff reviewed the chart.~Reviewed interim history and current functioning. Reviewed vital signs,~Labs/ Radiology~and current medications noted below. Continue current treatment with the changes noted in the dictated addendum note Assessment: Vital Signs/I&O: Vital Signs Date Time Temp Pulse Resp B/P (MAP) Pulse Ox O2 Delivery O2 Flow Rate FiO2 12/21/18 15:36 97.7 73 18 154/71 (98) 95 Room Air I & O 12/20/18 12/20/18 12/21/18 15:00 23:00 07:00 Intake Total 940 ml 240 ml 120 ml Balance 940 ml 240 ml 120 ml Labs: Laboratory Tests Test 12/21/18 09:44 White Blood Count 4.6 x10^3/uL (4.0-11.0) Red Blood Count 4.00 x10^6/uL (3.50-5.40) Hemoglobin 12.4 g/dL (12.0-15.5) Hematocrit 37.6 % (36.0-47.0) Mean Corpuscular Volume 94 fL (79-100) Mean Corpuscular Hemoglobin 31 pg (25-35) Mean Corpuscular Hemoglobin Concent 33 g/dL (31-37) Red Cell Distribution Width 13.9 % (11.5-14.5) Platelet Count 142 x10^3/uL (140-400) Neutrophils (%) (Auto) 66 % (31-73) Lymphocytes (%) (Auto) 24 % (24-48) Monocytes (%) (Auto) 7 % (0-9) Eosinophils (%) (Auto) 1 % (0-3) Basophils (%) (Auto) 1 % (0-3) Neutrophils # (Auto) 3.0 x10^3uL (1.8-7.7) Lymphocytes # (Auto) 1.1 x10^3/uL (1.0-4.8) Monocytes # (Auto) 0.3 x10^3/uL (0.0-1.1) Eosinophils # (Auto) 0.1 x10^3/uL (0.0-0.7) Basophils # (Auto) 0.0 x10^3/uL (0.0-0.2) Sodium Level 141 mmol/L (136-145) Potassium Level 4.2 mmol/L (3.5-5.1) Chloride Level 103 mmol/L (98-107) Carbon Dioxide Level 32 mmol/L (21-32) Anion Gap 6 (6-14) Blood Urea Nitrogen 29 mg/dL (7-20) H Creatinine 1.0 mg/dL (0.6-1.0) Estimated GFR (Cockcroft-Gault) 53.2 BUN/Creatinine Ratio 29 (6-20) H Glucose Level 131 mg/dL (70-99) H Calcium Level 9.0 mg/dL (8.5-10.1) Total Bilirubin 0.2 mg/dL (0.2-1.0) Aspartate Amino Transferase (AST) 24 U/L (15-37) Alanine Aminotransferase (ALT) 19 U/L (14-59) Alkaline Phosphatase 59 U/L (46-116) Total Protein 6.8 g/dL (6.4-8.2) Albumin 3.2 g/dL (3.4-5.0) L Albumin/Globulin Ratio 0.9 (1.0-1.7) L Current Medications: Meds: Current Medications Medications (Trade) Dose Ordered Sig/Cecilio Route PRN Reason Start Time Stop Time Status Last Admin Dose Admin Trazodone HCl (Desyrel) 50 mg QHS PO 12/21/18 21:00 12/21/18 19:53 Mirtazapine (Remeron) 7.5 mg QHS PO 12/21/18 21:00 12/21/18 19:53 I have reviewed the current psychotropics carefully including drug interactions. Risk benefit ratio favors no change other than as noted in my dictated progress note. Diagnosis: Problems: (1) Anxiety disorder (2) Dementia, vascular, with depression (3) Dementia, vascular, with delusions (4) Dementia in Alzheimer's disease with depression (5) Impulse control disorder (6) Dementia in Alzheimer's disease with delusions (7) Major neurocognitive disorder, due to vascular disease, with behavioral disturbance, mild (8) Major neurocognitive disorder LIZ COLIN MD Dec 21, 2018 22:19
--- NOTE | 2018-12-21 23:28 | PN ---
DATE: 12/20/2018 This late entry 12/20/2018 covers the elements not covered in my initial note. SUBJECTIVE: I met with the patient in the evening of 12/20/2018 in her room. The patient slept 6-3/4 hours previous night. She remains confused, withdrawn, and somewhat anxious. REVIEW OF SYSTEMS: No CV, , pulmonary, eye, ENT system symptoms on review. Reliability poor. MENTAL STATUS EXAM: Oriented to herself. Insight, judgment, recent and remote memory, attention, concentration, fund of knowledge poor, consistent with her diagnosis mentioned in my initial note. IMPRESSION: Major neurocognitive disorder, Alzheimer, vascular with delusion, depression, behavioral disturbance; anxiety disorder, unspecified; impulse control disorder, unspecified. Rest unchanged. PLAN: No change from initial note. She is somewhat obsessive and anxious. Luvox is being increased. She remains on Risperdal for paranoia and Exelon patch for now. LIZ COLIN MD DR: MICHAEL/arielle JOB#: [id number] / [id number]
[2018-12-22 06:20] VITALS: BP 102/56
[2018-12-22] MEDS: LISINOPRIL 20 MG TABLET PO SCH (09:02)
[2018-12-22] MEDS: METOPROLOL SUCC 24HR ER 50 MG TAB.ER.24H. PO SCH (09:03)
[2018-12-22] MEDS: RIVASTIGMINE 9.5MG PATCH. TD SCH (09:03)
[2018-12-22] MEDS: CHOLECALCIFEROL (VITAMIN D3) 50,000 UNIT CAPSULE PO SCH (09:05)
[2018-12-22 15:44] VITALS: BP 135/77
[2018-12-22] MEDS: traZODone 50 MG TABLET. PO SCH (20:33)
[2018-12-22] MEDS: MIRTAZAPINE 7.5 MG TABLET. PO SCH (20:33)
[2018-12-22] MEDS: risperiDONE 0.5 MG TABLET. PO SCH (20:33)
--- NOTE | 2018-12-22 21:52 | PDOC ---
Exam Note: Vitaly Note: Please also refer to the separate dictated note~for this date of service dictated separately.~Patient seen individually. Discussed the patient with Nursing staff reviewed the chart.~Reviewed interim history and current functioning. Reviewed vital signs,~Labs/ Radiology~and current medications noted below. Continue current treatment with the changes noted in the dictated addendum note Assessment: Vital Signs/I&O: Vital Signs Date Time Temp Pulse Resp B/P (MAP) Pulse Ox O2 Delivery O2 Flow Rate FiO2 12/22/18 15:44 97.2 71 18 135/77 (96) 94 12/21/18 15:36 Room Air I & O 12/21/18 12/21/18 12/22/18 14:59 22:59 06:59 Intake Total 720 ml 240 ml 120 ml Balance 720 ml 240 ml 120 ml Current Medications: Meds: Current Medications Medications (Trade) Dose Ordered Sig/Cecilio Route PRN Reason Start Time Stop Time Status Last Admin Dose Admin Vitamin D (Vitamin D3) 50,000 unit WEEKLY PO 12/22/18 09:00 12/22/18 09:05 I have reviewed the current psychotropics carefully including drug interactions. Risk benefit ratio favors no change other than as noted in my dictated progress note. Diagnosis: Problems: (1) Anxiety disorder (2) Dementia, vascular, with depression (3) Dementia, vascular, with delusions (4) Dementia in Alzheimer's disease with depression (5) Impulse control disorder (6) Major neurocognitive disorder, due to vascular disease, with behavioral disturbance, mild (7) Major neurocognitive disorder (8) Dementia in Alzheimer's disease with delusions LIZ COLIN MD Dec 22, 2018 21:52
--- NOTE | 2018-12-23 00:33 | PN ---
DATE: 12/21/2018 This late entry 12/21/2018 covers elements not covered in my initial note. SUBJECTIVE: I met with the patient evening of 12/21/2018. The patient slept just one hour previous night. The patient has been compliant with medications, confused, tearful at times, somewhat delusional, believes the nursing staff have taken her purse, which she has had for 2 years. She is questioning me on this as I met with her in the evening. REVIEW OF SYSTEMS: No CV, , pulmonary, eye, ENT system symptoms on review. MENTAL STATUS EXAM: Oriented to herself and situation. Speech has some latency, coherent. Abstraction fair, computation impaired, language function intact, attention span short. She is quite tearful as she met with me at length evening of 12/21/2018, talking about her missing purse and other misperception she has. LABORATORY DATA: Reviewed. IMPRESSION: Major neurocognitive disorder; Alzheimer, vascular with delusion; depression; behavioral disturbance, rest unchanged. PLAN: Start Remeron 7.5 mg at bedtime for insomnia and anxiety, trazodone 50 mg at bedtime p.r.n., may repeat x 1. Maintain Exelon patch, Luvox along with Risperdal, may need to increase Luvox gradually because of her obsessiveness and mood symptoms. MAN Charli COLIN MD DR: MICHAEL/arielle JOB#: [id number] / [id number]
[2018-12-23 05:59] VITALS: BP 109/67
[2018-12-23] MEDS: RIVASTIGMINE 9.5MG PATCH. TD SCH (10:24)
[2018-12-23] MEDS: LISINOPRIL 20 MG TABLET PO SCH (10:25)
[2018-12-23] MEDS: METOPROLOL SUCC 24HR ER 50 MG TAB.ER.24H. PO SCH (10:25)
[2018-12-23] MEDS: ASPIRIN 81 MG TAB.CHEW PO SCH (10:27)
[2018-12-23 15:43] VITALS: BP 120/73
[2018-12-23] MEDS: MIRTAZAPINE 7.5 MG TABLET. PO SCH (19:40)
[2018-12-23] MEDS: traZODone 50 MG TABLET. PO SCH (19:41)
[2018-12-23] MEDS: risperiDONE 0.5 MG TABLET. PO SCH (19:41)
--- NOTE | 2018-12-23 22:03 | PDOC ---
Exam Note: Vitaly Note: Please also refer to the separate dictated note~for this date of service dictated separately.~Patient seen individually. Discussed the patient with Nursing staff reviewed the chart.~Reviewed interim history and current functioning. Reviewed vital signs,~Labs/ Radiology~and current medications noted below. Continue current treatment with the changes noted in the dictated addendum note Assessment: Vital Signs/I&O: Vital Signs Date Time Temp Pulse Resp B/P (MAP) Pulse Ox O2 Delivery O2 Flow Rate FiO2 12/23/18 15:43 97.1 80 20 120/73 (89) 96 Room Air I & O 12/22/18 12/22/18 12/23/18 14:59 22:59 06:59 Intake Total 600 ml 200 ml 120 ml Balance 600 ml 200 ml 120 ml Current Medications: I have reviewed the current psychotropics carefully including drug interactions. Risk benefit ratio favors no change other than as noted in my dictated progress note. 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
[2018-12-24 05:55] VITALS: BP 109/67
[2018-12-24] MEDS: LISINOPRIL 20 MG TABLET PO SCH (09:26)
[2018-12-24] MEDS: RIVASTIGMINE 9.5MG PATCH. TD SCH (09:27)
[2018-12-24] MEDS: METOPROLOL SUCC 24HR ER 50 MG TAB.ER.24H. PO SCH (09:27)
[2018-12-24 15:24] VITALS: BP 135/78
[2018-12-24] MEDS: risperiDONE 0.5 MG TABLET. PO SCH (20:13)
[2018-12-24] MEDS: MIRTAZAPINE 7.5 MG TABLET. PO SCH (20:13)
[2018-12-24] MEDS: traZODone 50 MG TABLET. PO SCH (20:13)
--- NOTE | 2018-12-24 22:07 | PDOC ---
Exam Note: Vitaly Note: Please also refer to the separate dictated note~for this date of service dictated separately.~Patient seen individually. Discussed the patient with Nursing staff reviewed the chart.~Reviewed interim history and current functioning. Reviewed vital signs,~Labs/ Radiology~and current medications noted below. Continue current treatment with the changes noted in the dictated addendum note Assessment: Vital Signs/I&O: Vital Signs Date Time Temp Pulse Resp B/P (MAP) Pulse Ox O2 Delivery O2 Flow Rate FiO2 12/24/18 15:24 98.9 73 16 135/78 (97) 97 12/24/18 05:55 Room Air I & O 12/23/18 12/23/18 12/24/18 15:00 23:00 07:00 Intake Total 960 ml 480 ml 100 ml Balance 960 ml 480 ml 100 ml Current Medications: I have reviewed the current psychotropics carefully including drug interactions. Risk benefit ratio favors no change other than as noted in my dictated progress note. 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
--- NOTE | 2018-12-24 22:25 | PN ---
DATE: 12/22/2018 This late entry 12/22/2018 covers elements not covered in my initial note. SUBJECTIVE: I met with the patient in the evening of 12/22/2018. The patient slept 7-1/2 hours previous night. Overall, she remains confused, believes she has to go to [employer] a job and I addressed this with her. She is oriented to herself, asking nursing staff if she was going to see the brain doctor. REVIEW OF SYSTEMS: No CV, , pulmonary, eye, ENT system symptoms on review. Reliability poor. MENTAL STATUS EXAM: Oriented to herself. Insight, judgment, recent and remote memory, attention, concentration, fund of knowledge poor, consistent with her diagnosis mentioned in my initial note. PLAN: No change from initial note. MAN Charli COLIN MD DR: MICHAEL/arielle JOB#: [id number] / [id number]
--- NOTE | 2018-12-25 00:20 | PN ---
DATE: 12/23/2018 This late entry of 12/23/2018 covers elements not covered in my initial note. SUBJECTIVE: I met with the patient evening of 12/23/2018. The patient was staffed at treatment team meeting with the entire team in the morning. The patient slept 6 hours previous night. Appetite 75-100%. Patient remains anxious, restless, confused, wanting her purse and wanting to return home because she believes others may steal it from her. REVIEW OF SYSTEMS: No CV, , pulmonary, eye, ENT system symptoms on review, reliability poor. MENTAL STATUS EXAM: Oriented to herself. Insight, judgment, recent and remote memory, attention, concentration, fund of knowledge poor, consistent with her diagnosis mentioned in my initial note. PLAN: No change from initial note. MAN Charli COLIN MD DR: MICHAEL/arielle JOB#: [id number] / [id number]
[2018-12-25 05:36] VITALS: BP 115/70
[2018-12-25] MEDS: ASPIRIN 81 MG TAB.CHEW PO SCH (08:18)
[2018-12-25] MEDS: RIVASTIGMINE 9.5MG PATCH. TD SCH (08:19)
[2018-12-25] MEDS: METOPROLOL SUCC 24HR ER 50 MG TAB.ER.24H. PO SCH (08:19)
[2018-12-25] MEDS: LISINOPRIL 20 MG TABLET PO SCH (08:19)
[2018-12-25 15:45] VITALS: BP 93/61
[2018-12-25 19:41] VITALS: BP 133/80
[2018-12-25] MEDS: traZODone 50 MG TABLET. PO SCH (19:43)
[2018-12-25] MEDS: MIRTAZAPINE 7.5 MG TABLET. PO SCH (19:43)
[2018-12-25] MEDS: risperiDONE 0.5 MG TABLET. PO SCH (19:43)
--- NOTE | 2018-12-25 21:57 | PDOC ---
Exam Note: Vitaly Note: Please also refer to the separate dictated note~for this date of service dictated separately.~Patient seen individually. Discussed the patient with Nursing staff reviewed the chart.~Reviewed interim history and current functioning. Reviewed vital signs,~Labs/ Radiology~and current medications noted below. Continue current treatment with the changes noted in the dictated addendum note Assessment: Vital Signs/I&O: Vital Signs Date Time Temp Pulse Resp B/P (MAP) Pulse Ox O2 Delivery O2 Flow Rate FiO2 12/25/18 19:41 97.2 80 20 133/80 (97) 98 Room Air I & O 12/24/18 12/24/18 12/25/18 15:00 23:00 07:00 Intake Total 700 ml 480 ml 120 ml Balance 700 ml 480 ml 120 ml Current Medications: I have reviewed the current psychotropics carefully including drug interactions. Risk benefit ratio favors no change other than as noted in my dictated progress note. Diagnosis: Problems: (1) Anxiety disorder (2) Dementia, vascular, with depression (3) Dementia, vascular, with delusions (4) Dementia in Alzheimer's disease with depression (5) Impulse control disorder (6) Dementia in Alzheimer's disease with delusions (7) Major neurocognitive disorder, due to vascular disease, with behavioral disturbance, mild (8) Major neurocognitive disorder LIZ COLIN MD Dec 25, 2018 21:56
[2018-12-26 05:53] VITALS: BP 112/64
[2018-12-26 07:24] LABS: BASO % 1 % (0-3); EOS # 0.1 x10^3/uL (0.0-0.7); EOS % 2 % (0-3); HEMATOCRIT 38.1 % (36.0-47.0); HEMOGLOBIN 12.8 g/dL (12.0-15.5); LYMPH # 1.4 x10^3/uL (1.0-4.8); LYMPH % 23 % (24-48); MEAN CORPUSCULAR HEMOGLOBIN 31 pg (25-35); MEAN CORPUSCULAR HGB CONC 33 g/dL (31-37); MEAN CORPUSCULAR VOLUME 93 fL (79-100); MONO # 0.6 x10^3/uL (0.0-1.1); MONO % 10 % (0-9); NEUT % 64 % (31-73); PLATELET COUNT 160 x10^3/uL (140-400); RED BLOOD COUNT 4.12 x10^6/uL (3.50-5.40); RED CELL DISTRIBUTION WIDTH 14.2 % (11.5-14.5); WHITE BLOOD COUNT 6.2 x10^3/uL (4.0-11.0)
[2018-12-26 07:37] LABS: ALBUMIN 3.4 g/dL (3.4-5.0); ALBUMIN/GLOBULIN RATIO 0.9 (1.0-1.7); CALCIUM 9.4 mg/dL (8.5-10.1); CREATININE 1.2 mg/dL (0.6-1.0); GFR 43.1; POTASSIUM 4.4 mmol/L (3.5-5.1); TOTAL BILIRUBIN 0.2 mg/dL (0.2-1.0); TOTAL PROTEIN 7.2 g/dL (6.4-8.2)
[2018-12-26] MEDS: METOPROLOL SUCC 24HR ER 50 MG TAB.ER.24H. PO SCH (08:15)
[2018-12-26] MEDS: LISINOPRIL 20 MG TABLET PO SCH (08:15)
[2018-12-26] MEDS: RIVASTIGMINE 9.5MG PATCH. TD SCH (08:15)
[2018-12-26 16:00] VITALS: BP 102/67
[2018-12-26] MEDS: traZODone 50 MG TABLET. PO SCH (20:39)
[2018-12-26] MEDS: MIRTAZAPINE 7.5 MG TABLET. PO SCH (20:39)
[2018-12-26] MEDS: risperiDONE 0.5 MG TABLET. PO SCH (20:39)
--- NOTE | 2018-12-26 21:01 | PDOC ---
Exam Note: Vitaly Note: Please also refer to the separate dictated note~for this date of service dictated separately.~Patient seen individually. Discussed the patient with Nursing staff reviewed the chart.~Reviewed interim history and current functioning. Reviewed vital signs,~Labs/ Radiology~and current medications noted below. Continue current treatment with the changes noted in the dictated addendum note Assessment: Vital Signs/I&O: Vital Signs Date Time Temp Pulse Resp B/P (MAP) Pulse Ox O2 Delivery O2 Flow Rate FiO2 12/26/18 16:00 97.2 79 18 102/67 (79) 98 Room Air I & O 12/25/18 12/25/18 12/26/18 14:59 22:59 06:59 Intake Total 700 ml 360 ml 240 ml Balance 700 ml 360 ml 240 ml Labs: Laboratory Tests Test 12/26/18 07:06 White Blood Count 6.2 x10^3/uL (4.0-11.0) Red Blood Count 4.12 x10^6/uL (3.50-5.40) Hemoglobin 12.8 g/dL (12.0-15.5) Hematocrit 38.1 % (36.0-47.0) Mean Corpuscular Volume 93 fL (79-100) Mean Corpuscular Hemoglobin 31 pg (25-35) Mean Corpuscular Hemoglobin Concent 33 g/dL (31-37) Red Cell Distribution Width 14.2 % (11.5-14.5) Platelet Count 160 x10^3/uL (140-400) Neutrophils (%) (Auto) 64 % (31-73) Lymphocytes (%) (Auto) 23 % (24-48) L Monocytes (%) (Auto) 10 % (0-9) H Eosinophils (%) (Auto) 2 % (0-3) Basophils (%) (Auto) 1 % (0-3) Neutrophils # (Auto) 4.0 x10^3uL (1.8-7.7) Lymphocytes # (Auto) 1.4 x10^3/uL (1.0-4.8) Monocytes # (Auto) 0.6 x10^3/uL (0.0-1.1) Eosinophils # (Auto) 0.1 x10^3/uL (0.0-0.7) Basophils # (Auto) 0.0 x10^3/uL (0.0-0.2) Sodium Level 139 mmol/L (136-145) Potassium Level 4.4 mmol/L (3.5-5.1) Chloride Level 103 mmol/L (98-107) Carbon Dioxide Level 30 mmol/L (21-32) Anion Gap 6 (6-14) Blood Urea Nitrogen 46 mg/dL (7-20) H Creatinine 1.2 mg/dL (0.6-1.0) H Estimated GFR (Cockcroft-Gault) 43.1 BUN/Creatinine Ratio 38 (6-20) H Glucose Level 105 mg/dL (70-99) H Calcium Level 9.4 mg/dL (8.5-10.1) Total Bilirubin 0.2 mg/dL (0.2-1.0) Aspartate Amino Transferase (AST) 18 U/L (15-37) Alanine Aminotransferase (ALT) 12 U/L (14-59) L Alkaline Phosphatase 71 U/L (46-116) Total Protein 7.2 g/dL (6.4-8.2) Albumin 3.4 g/dL (3.4-5.0) Albumin/Globulin Ratio 0.9 (1.0-1.7) L Current Medications: Meds: Current Medications Medications (Trade) Dose Ordered Sig/Cecilio Route PRN Reason Start Time Stop Time Status Last Admin Dose Admin Fluvoxamine Maleate (Luvox) 100 mg DAILY PO 12/26/18 09:00 12/26/18 08:16 I have reviewed the current psychotropics carefully including drug interactions. Risk benefit ratio favors no change other than as noted in my dictated progress note. Diagnosis: Problems: (1) Anxiety disorder (2) Dementia, vascular, with depression (3) Dementia, vascular, with delusions (4) Dementia in Alzheimer's disease with depression (5) Impulse control disorder (6) Dementia in Alzheimer's disease with delusions (7) Major neurocognitive disorder, due to vascular disease, with behavioral disturbance, mild (8) Major neurocognitive disorder LIZ COLIN MD Dec 26, 2018 21:01
--- NOTE | 2018-12-26 22:16 | PN ---
DATE: 12/24/2018 PSYCHIATRIC PROGRESS NOTE. This late entry of 12/24/2018 covers the elements not covered in my initial note. SUBJECTIVE: I met with the patient in the evening of 12/24/2018. The patient slept 7 hours previous night. She has been less withdrawn, still fixated that she has to go find a job and was fixated on the [employer]. She remains confused. REVIEW OF SYSTEMS: No CV, , pulmonary, eye, ENT system symptoms on review. As I met with her, she is fixated on wanting to return home, so the family would not take it away from her. MENTAL STATUS EXAM: Oriented to herself. Insight, judgment, recent and remote memory, attention, concentration, fund of knowledge poor, consistent with her diagnosis mentioned in my initial note. PLAN: No change from initial note. MAN Charli COLIN MD DR: MICHAEL/arielle JOB#: [id number] / [id number]
--- NOTE | 2018-12-27 05:11 | PN ---
DATE: 12/25/2018 PSYCHIATRIC PROGRESS NOTE This late entry, 12/25/2018, covers elements not covered in my initial note. SUBJECTIVE: I met with the patient in the evening of 12/25/2018. The patient slept 5-1/2 hours previous night. She remains quite confused, irritable, somewhat delusional, wanting to get back to her job, believes she is working. She believes her mother is alive, wanting to go home because she is concerned what the family is doing with her home. REVIEW OF SYSTEMS: No CV, , pulmonary, eye, ENT system symptoms on review. Reliability poor. MENTAL STATUS EXAM: Oriented to herself. Insight, judgment, recent and remote memory, attention, concentration, fund of knowledge poor, consistent with her diagnosis mentioned in my initial note. PLAN: No change from initial note. MAN Charli COLIN MD DR: MICHAEL/arielle JOB#: [id number] / [id number]
[2018-12-27 05:42] VITALS: BP 127/68
[2018-12-27] MEDS: ASPIRIN 81 MG TAB.CHEW PO SCH (08:09)
[2018-12-27] MEDS: RIVASTIGMINE 9.5MG PATCH. TD SCH (08:11)
[2018-12-27 08:28] VITALS: BP 151/76
[2018-12-27] MEDS: LISINOPRIL 20 MG TABLET PO SCH (09:23)
[2018-12-27] MEDS: METOPROLOL SUCC 24HR ER 50 MG TAB.ER.24H. PO SCH (09:27)
[2018-12-27 15:47] VITALS: BP 116/66
[2018-12-27] MEDS: traZODone 50 MG TABLET. PO SCH (19:42)
[2018-12-27] MEDS: MIRTAZAPINE 7.5 MG TABLET. PO SCH (19:42)
[2018-12-27] MEDS: risperiDONE 0.5 MG TABLET. PO SCH (19:42)
--- NOTE | 2018-12-27 22:22 | PDOC ---
Exam Note: Vitaly Note: Please also refer to the separate dictated note~for this date of service dictated separately.~Patient seen individually. Discussed the patient with Nursing staff reviewed the chart.~Reviewed interim history and current functioning. Reviewed vital signs,~Labs/ Radiology~and current medications noted below. Continue current treatment with the changes noted in the dictated addendum note Assessment: Vital Signs/I&O: Vital Signs Date Time Temp Pulse Resp B/P (MAP) Pulse Ox O2 Delivery O2 Flow Rate FiO2 12/27/18 15:47 97.6 69 16 116/66 (83) 96 12/27/18 08:28 Room Air I & O 12/26/18 12/26/18 12/27/18 15:00 23:00 07:00 Intake Total 600 ml 360 ml 120 ml Balance 600 ml 360 ml 120 ml Current Medications: I have reviewed the current psychotropics carefully including drug interactions. Risk benefit ratio favors no change other than as noted in my dictated progress note. Diagnosis: Problems: (1) Anxiety disorder (2) Dementia, vascular, with depression (3) Dementia, vascular, with delusions (4) Dementia in Alzheimer's disease with depression (5) Impulse control disorder (6) Dementia in Alzheimer's disease with delusions (7) Major neurocognitive disorder, due to vascular disease, with behavioral disturbance, mild (8) Dehydration (9) Major neurocognitive disorder LIZ COLIN MD Dec 27, 2018 22:22
--- NOTE | 2018-12-27 23:20 | PN ---
DATE: 12/26/2018 This late entry, 12/26, covers the elements not covered in my initial note. SUBJECTIVE: I met with the patient on the evening of 12/26. The patient slept 6-1/4 hours previous night. Overall, the patient has had a better day. She remains confused, somewhat delusional, believes she was at work and I processed this with her. She is fixated on getting home before her family takes it from her. REVIEW OF SYSTEMS: No CV, , pulmonary, eye system symptoms on review. She is hard of hearing. Reliability poor. MENTAL STATUS EXAM: Oriented to herself. Insight, judgment, recent and remote memory, attention, concentration, fund of knowledge poor, consistent with her diagnosis mentioned in my initial note. PLAN: No change from initial note. MAN Charli COLIN MD DR: MICHAEL/arielle JOB#: [id number] / [id number]
[2018-12-28] MEDS: LISINOPRIL 20 MG TABLET PO SCH (05:42)
[2018-12-28] MEDS: METOPROLOL SUCC 24HR ER 50 MG TAB.ER.24H. PO SCH (05:42)
[2018-12-28 06:14] VITALS: BP 178/88
[2018-12-28] MEDS: RIVASTIGMINE 9.5MG PATCH. TD SCH (07:59)
[2018-12-28 16:07] VITALS: BP 99/60
[2018-12-28] MEDS: MIRTAZAPINE 7.5 MG TABLET. PO SCH (19:28)
[2018-12-28] MEDS: risperiDONE 0.5 MG TABLET. PO SCH (19:28)
[2018-12-28] MEDS: traZODone 50 MG TABLET. PO SCH (19:28)
--- NOTE | 2018-12-28 20:57 | PN ---
DATE: 12/27/2018 This late entry 12/27/2018 covers elements not covered in my initial note. SUBJECTIVE: I met with the patient evening of 12/27/2018. The patient slept 7-1/4 hours previous night. Her BUN is elevated. Fluids are being pushed. She is confused, but less obsessed, looking for her purse. She was fixated, following me around, talking about wanting to go home before her children sold it or took away the belongings. I processed at some length. REVIEW OF SYSTEMS: No CV, , pulmonary, eye, ENT system symptoms on review. Reliability poor. MENTAL STATUS EXAMINATION: Oriented to herself, at times situation. Insight, judgment, recent and remote memory, attention, concentration, fund of knowledge poor, consistent with her diagnosis mentioned in my initial note. PLAN: No change from initial note, but we may need to adjust the Luvox further in due course. MAN Charli COLIN MD DR: MICHAEL/arielle JOB#: [id number] / [id number]
--- NOTE | 2018-12-28 21:49 | PDOC ---
Exam Note: Vitaly Note: Please also refer to the separate dictated note~for this date of service dictated separately.~Patient seen individually. Discussed the patient with Nursing staff reviewed the chart.~Reviewed interim history and current functioning. Reviewed vital signs,~Labs/ Radiology~and current medications noted below. Continue current treatment with the changes noted in the dictated addendum note Assessment: Vital Signs/I&O: Vital Signs Date Time Temp Pulse Resp B/P (MAP) Pulse Ox O2 Delivery O2 Flow Rate FiO2 12/28/18 16:07 97.6 71 16 99/60 (73) 96 12/28/18 06:14 Room Air I & O 12/27/18 12/27/18 12/28/18 15:00 23:00 07:00 Intake Total 840 ml 240 ml 120 ml Balance 840 ml 240 ml 120 ml Current Medications: I have reviewed the current psychotropics carefully including drug interactions. Risk benefit ratio favors no change other than as noted in my dictated progress note. 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
[2018-12-29 05:47] VITALS: BP 130/77
[2018-12-29] MEDS: CHOLECALCIFEROL (VITAMIN D3) 50,000 UNIT CAPSULE PO SCH (08:36)
[2018-12-29] MEDS: LISINOPRIL 20 MG TABLET PO SCH (08:36)
[2018-12-29] MEDS: METOPROLOL SUCC 24HR ER 50 MG TAB.ER.24H. PO SCH (08:36)
[2018-12-29] MEDS: RIVASTIGMINE 9.5MG PATCH. TD SCH (08:37)
[2018-12-29] MEDS: DIVALPROEX 125 MG CAP.SPRINK PO SCH ×2 (08:38→16:36)
[2018-12-29] MEDS: ASPIRIN 81 MG TAB.CHEW PO SCH (08:38)
[2018-12-29 15:46] VITALS: BP 110/66
--- NOTE | 2018-12-29 21:24 | PDOC ---
Exam Note: Vitaly Note: Please also refer to the separate dictated note~for this date of service dictated separately.~Patient seen individually. Discussed the patient with Nursing staff reviewed the chart.~Reviewed interim history and current functioning. Reviewed vital signs,~Labs/ Radiology~and current medications noted below. Continue current treatment with the changes noted in the dictated addendum note Assessment: Vital Signs/I&O: Vital Signs Date Time Temp Pulse Resp B/P (MAP) Pulse Ox O2 Delivery O2 Flow Rate FiO2 12/29/18 15:46 97.0 86 18 110/66 (81) 95 12/28/18 06:14 Room Air I & O 12/28/18 12/28/18 12/29/18 15:00 23:00 07:00 Intake Total 720 ml 600 ml Balance 720 ml 600 ml Current Medications: Meds: Current Medications Medications (Trade) Dose Ordered Sig/Cecilio Route PRN Reason Start Time Stop Time Status Last Admin Dose Admin Divalproex Sodium (Depakote Sprinkles) 125 mg BID@0900,1700 PO 12/29/18 09:00 12/29/18 16:36 I have reviewed the current psychotropics carefully including drug interactions. Risk benefit ratio favors no change other than as noted in my dictated progress note. 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
--- NOTE | 2018-12-29 22:39 | PN ---
DATE: 12/28/2018 PSYCHIATRIC PROGRESS NOTE This late entry, 12/28, covers the elements not covered in my initial note. SUBJECTIVE: I met with the patient on the evening of 12/28. The patient slept 7 hours previous night. She remains confused, has been rude and snarky per Simona, LONI. She talked about feeling that she would never leave this facility and we addressed this at some length as have the nursing staff that she is here for stabilization [facility]. She is wanting to go back to her home. She has been confused, obsessive, hoarding things in her room and there was a stack of 15 paper cups in her room. Last night, she was restless. REVIEW OF SYSTEMS: No CV, , pulmonary, eye, ENT systems symptoms on review. Reliability poor. MENTAL STATUS EXAM: Oriented to herself. Insight, judgment, recent and remote memory, attention, concentration, fund of knowledge poor, consistent with her diagnosis mentioned in my initial note. PLAN: Start Depakote Sprinkles 125 mg 9 a.m., 5:00 p.m. Check CBC, CMP, valproic acid level in 3 days. Continue Luvox, Risperdal, Exelon patch and Remeron, unchanged for now. LIZ COLIN MD DR: MICHAEL/arielle JOB#: [id number] / [id number]
[2018-12-29] MEDS: traZODone 50 MG TABLET. PO SCH (23:11)
[2018-12-29] MEDS: MIRTAZAPINE 7.5 MG TABLET. PO SCH (23:11)
[2018-12-29] MEDS: risperiDONE 0.5 MG TABLET. PO SCH (23:12)
[2018-12-30 05:41] VITALS: BP 132/77
[2018-12-30] MEDS: DIVALPROEX 125 MG CAP.SPRINK PO SCH ×2 (09:28→17:05)
[2018-12-30] MEDS: METOPROLOL SUCC 24HR ER 50 MG TAB.ER.24H. PO SCH (09:28)
[2018-12-30] MEDS: RIVASTIGMINE 9.5MG PATCH. TD SCH (09:28)
[2018-12-30] MEDS: LISINOPRIL 20 MG TABLET PO SCH (09:28)
[2018-12-30 16:27] VITALS: BP 125/75
[2018-12-30] MEDS: MIRTAZAPINE 7.5 MG TABLET. PO SCH (20:09)
[2018-12-30] MEDS: traZODone 50 MG TABLET. PO SCH (20:09)
[2018-12-30] MEDS: risperiDONE 0.5 MG TABLET. PO SCH (20:09)
--- NOTE | 2018-12-30 21:30 | PDOC ---
Exam Note: Vitaly Note: Please also refer to the separate dictated note~for this date of service dictated separately.~Patient seen individually. Discussed the patient with Nursing staff reviewed the chart.~Reviewed interim history and current functioning. Reviewed vital signs,~Labs/ Radiology~and current medications noted below. Continue current treatment with the changes noted in the dictated addendum note Assessment: Vital Signs/I&O: Vital Signs Date Time Temp Pulse Resp B/P (MAP) Pulse Ox O2 Delivery O2 Flow Rate FiO2 12/30/18 16:27 97.9 70 19 125/75 (92) 94 Room Air I & O 12/29/18 12/29/18 12/30/18 15:00 23:00 07:00 Intake Total 720 ml 480 ml 240 ml Balance 720 ml 480 ml 240 ml Current Medications: I have reviewed the current psychotropics carefully including drug interactions. Risk benefit ratio favors no change other than as noted in my dictated progress note. Diagnosis: Problems: (1) Anxiety disorder (2) Dementia, vascular, with depression (3) Dementia, vascular, with delusions (4) Dementia in Alzheimer's disease with depression (5) Impulse control disorder (6) Dementia in Alzheimer's disease with delusions (7) Major neurocognitive disorder, due to vascular disease, with behavioral disturbance, mild (8) Major neurocognitive disorder LIZ COLIN MD Dec 30, 2018 21:30
[2018-12-31 05:28] VITALS: BP 157/78
[2018-12-31] MEDS: DIVALPROEX 125 MG CAP.SPRINK PO SCH ×2 (08:36→16:32)
[2018-12-31] MEDS: ASPIRIN 81 MG TAB.CHEW PO SCH (08:36)
[2018-12-31] MEDS: LISINOPRIL 20 MG TABLET PO SCH (08:39)
[2018-12-31] MEDS: RIVASTIGMINE 9.5MG PATCH. TD SCH (08:40)
[2018-12-31] MEDS: METOPROLOL SUCC 24HR ER 50 MG TAB.ER.24H. PO SCH (08:40)
[2018-12-31 16:15] VITALS: BP 173/72
[2018-12-31] MEDS: MIRTAZAPINE 7.5 MG TABLET. PO SCH (20:01)
[2018-12-31] MEDS: risperiDONE 0.5 MG TABLET. PO SCH (20:01)
[2018-12-31] MEDS: traZODone 50 MG TABLET. PO SCH (20:01)
--- NOTE | 2018-12-31 21:34 | PDOC ---
Exam Note: Vitaly Note: Please also refer to the separate dictated note~for this date of service dictated separately.~Patient seen individually. Discussed the patient with Nursing staff reviewed the chart.~Reviewed interim history and current functioning. Reviewed vital signs,~Labs/ Radiology~and current medications noted below. Continue current treatment with the changes noted in the dictated addendum note Assessment: Vital Signs/I&O: Vital Signs Date Time Temp Pulse Resp B/P (MAP) Pulse Ox O2 Delivery O2 Flow Rate FiO2 12/31/18 16:15 97.7 82 18 173/72 (105) 92 12/30/18 16:27 Room Air I & O 12/30/18 12/30/18 12/31/18 15:00 23:00 07:00 Intake Total 480 ml 240 ml 240 ml Balance 480 ml 240 ml 240 ml Current Medications: I have reviewed the current psychotropics carefully including drug interactions. Risk benefit ratio favors no change other than as noted in my dictated progress note. Diagnosis: Problems: (1) Anxiety disorder (2) Dementia, vascular, with depression (3) Dementia, vascular, with delusions (4) Dementia in Alzheimer's disease with depression (5) Impulse control disorder (6) Dementia in Alzheimer's disease with delusions (7) Major neurocognitive disorder, due to vascular disease, with behavioral disturbance, mild (8) Major neurocognitive disorder LIZ COLIN MD Dec 31, 2018 21:34
--- NOTE | 2018-12-31 21:46 | PN ---
DATE: 12/30/2018 PSYCHIATRIC PROGRESS NOTE This late entry of 12/30/2018 covers the elements not covered in my initial note. SUBJECTIVE: I met with the patient in the evening of 12/30/2018 and staffed at a treatment team meeting with the entire team in the morning. The patient is sleeping average 5-1/2 hours. Appetite 75-100%. She is somewhat obsessive, hoarding paper plates, cup, etc. Social service staff is looking at [facility] as opposed to [facility], but the patient is obsessed about returning home, less fixated on this nevertheless. She wants to return home to help her mother. REVIEW OF SYSTEMS: No CV, , pulmonary, eye, ENT system symptoms on review. Reliability poor. MENTAL STATUS EXAM: Oriented to herself and situation. Speech has some latency, coherent. Abstraction fair, computation impaired, language function intact. Mood and affect still anxious, somewhat labile, but less so than before. LABORATORY DATA: Reviewed. IMPRESSION: Unchanged from initial note. PLAN: No change from initial note. LIZ COLIN MD DR: MICHAEL/arielle JOB#: [id number] / [id number]
--- NOTE | 2018-12-31 21:59 | PN ---
DATE: 12/29/2018 PROGRESS NOTE This late entry 12/29/2018, covers elements not covered in my initial note. SUBJECTIVE: I met with the patient evening of 12/29/2018. The patient slept 6-3/4 hours previous night. She has been better on 12/29/2018 as compared to 12/28/2018, less anxious, more redirectable, less obsessive about going home, calmer, coming to the day room, still talks about moving home to help her mother soon. Labs and valproic acid level are due on the . REVIEW OF SYSTEMS: No CV, , pulmonary, eye, ENT system symptoms on review. MENTAL STATUS EXAM: Oriented to herself, situation. Insight, judgment, recent memory is impaired, remote is better. Language function intact. Attention span short. Mood and affect is improved. LABORATORY DATA: Reviewed. IMPRESSION: Unchanged from initial note. PLAN: No change from initial note. Labs will be checked for Depakote level and then adjust. LIZ COLIN MD DR: MICHAEL/arielle JOB#: [id number] / [id number]
[2019-01-01 06:05] VITALS: BP 141/79
[2019-01-01 07:16] LABS: BASO % 1 % (0-3); EOS # 0.1 x10^3/uL (0.0-0.7); EOS % 2 % (0-3); HEMATOCRIT 37.4 % (36.0-47.0); HEMOGLOBIN 12.8 g/dL (12.0-15.5); LYMPH # 1.8 x10^3/uL (1.0-4.8); LYMPH % 30 % (24-48); MEAN CORPUSCULAR HEMOGLOBIN 32 pg (25-35); MEAN CORPUSCULAR HGB CONC 34 g/dL (31-37); MEAN CORPUSCULAR VOLUME 92 fL (79-100); MONO # 0.5 x10^3/uL (0.0-1.1); MONO % 8 % (0-9); NEUT # 3.6 x10^3uL (1.8-7.7); NEUT % 59 % (31-73); PLATELET COUNT 163 x10^3/uL (140-400); RED BLOOD COUNT 4.04 x10^6/uL (3.50-5.40); RED CELL DISTRIBUTION WIDTH 14.4 % (11.5-14.5); WHITE BLOOD COUNT 6.1 x10^3/uL (4.0-11.0)
[2019-01-01 07:26] LABS: ALBUMIN 3.4 g/dL (3.4-5.0); ALBUMIN/GLOBULIN RATIO 0.9 (1.0-1.7); ALK PHOS 72 U/L (46-116); ALT (SGPT) 15 U/L (14-59); ANION GAP 3 (6-14); AST (SGOT) 25 U/L (15-37); BLOOD UREA NITROGEN 33 mg/dL (7-20); BUN/CREATININE RATIO 30 (6-20); CALCIUM 8.8 mg/dL (8.5-10.1); CARBON DIOXIDE 32 mmol/L (21-32); CHLORIDE 104 mmol/L (98-107); CREATININE 1.1 mg/dL (0.6-1.0); GFR 47.7; GLUCOSE 99 mg/dL (70-99); POTASSIUM 4.2 mmol/L (3.5-5.1); SODIUM 139 mmol/L (136-145); TOTAL BILIRUBIN 0.3 mg/dL (0.2-1.0); TOTAL PROTEIN 7.2 g/dL (6.4-8.2)
[2019-01-01 07:29] LABS: VAL ACID 30 mcg/mL (50-100)
[2019-01-01] MEDS: LISINOPRIL 20 MG TABLET PO SCH (08:26)
[2019-01-01] MEDS: DIVALPROEX 125 MG CAP.SPRINK PO SCH ×2 (08:26→16:52)
[2019-01-01] MEDS: RIVASTIGMINE 9.5MG PATCH. TD SCH (08:27)
[2019-01-01] MEDS: METOPROLOL SUCC 24HR ER 50 MG TAB.ER.24H. PO SCH (08:27)
[2019-01-01 15:58] VITALS: BP 146/81
[2019-01-01] MEDS: risperiDONE 0.5 MG TABLET. PO SCH (20:10)
[2019-01-01] MEDS: traZODone 50 MG TABLET. PO SCH (20:10)
[2019-01-01] MEDS: MIRTAZAPINE 7.5 MG TABLET. PO SCH (20:10)
--- NOTE | 2019-01-01 22:50 | PDOC ---
Exam Note: Vitaly Note: Please also refer to the separate dictated note~for this date of service dictated separately.~Patient seen individually. Discussed the patient with Nursing staff reviewed the chart.~Reviewed interim history and current functioning. Reviewed vital signs,~Labs/ Radiology~and current medications noted below. Continue current treatment with the changes noted in the dictated addendum note Assessment: Vital Signs/I&O: Vital Signs Date Time Temp Pulse Resp B/P (MAP) Pulse Ox O2 Delivery O2 Flow Rate FiO2 01/01/19 15:58 97.0 74 18 146/81 (102) 99 12/30/18 16:27 Room Air I & O 12/31/18 12/31/18 01/01/19 15:00 23:00 07:00 Intake Total 960 ml 360 ml Balance 960 ml 360 ml Labs: Laboratory Tests Test 01/01/19 06:15 White Blood Count 6.1 x10^3/uL (4.0-11.0) Red Blood Count 4.04 x10^6/uL (3.50-5.40) Hemoglobin 12.8 g/dL (12.0-15.5) Hematocrit 37.4 % (36.0-47.0) Mean Corpuscular Volume 92 fL (79-100) Mean Corpuscular Hemoglobin 32 pg (25-35) Mean Corpuscular Hemoglobin Concent 34 g/dL (31-37) Red Cell Distribution Width 14.4 % (11.5-14.5) Platelet Count 163 x10^3/uL (140-400) Neutrophils (%) (Auto) 59 % (31-73) Lymphocytes (%) (Auto) 30 % (24-48) Monocytes (%) (Auto) 8 % (0-9) Eosinophils (%) (Auto) 2 % (0-3) Basophils (%) (Auto) 1 % (0-3) Neutrophils # (Auto) 3.6 x10^3uL (1.8-7.7) Lymphocytes # (Auto) 1.8 x10^3/uL (1.0-4.8) Monocytes # (Auto) 0.5 x10^3/uL (0.0-1.1) Eosinophils # (Auto) 0.1 x10^3/uL (0.0-0.7) Basophils # (Auto) 0.0 x10^3/uL (0.0-0.2) Sodium Level 139 mmol/L (136-145) Potassium Level 4.2 mmol/L (3.5-5.1) Chloride Level 104 mmol/L (98-107) Carbon Dioxide Level 32 mmol/L (21-32) Anion Gap 3 (6-14) L Blood Urea Nitrogen 33 mg/dL (7-20) H Creatinine 1.1 mg/dL (0.6-1.0) H Estimated GFR (Cockcroft-Gault) 47.7 BUN/Creatinine Ratio 30 (6-20) H Glucose Level 99 mg/dL (70-99) Calcium Level 8.8 mg/dL (8.5-10.1) Total Bilirubin 0.3 mg/dL (0.2-1.0) Aspartate Amino Transferase (AST) 25 U/L (15-37) Alanine Aminotransferase (ALT) 15 U/L (14-59) Alkaline Phosphatase 72 U/L (46-116) Total Protein 7.2 g/dL (6.4-8.2) Albumin 3.4 g/dL (3.4-5.0) Albumin/Globulin Ratio 0.9 (1.0-1.7) L Valproic Acid Level 30 mcg/mL (50-100) L Valproic Acid Last Dose Date 12/31/18 Valproic Acid Last Dose Time 1700 Current Medications: I have reviewed the current psychotropics carefully including drug interactions. Risk benefit ratio favors no change other than as noted in my dictated progress note. 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
[2019-01-02 05:27] VITALS: BP 96/55
[2019-01-02] MEDS: LISINOPRIL 20 MG TABLET PO SCH (08:23)
[2019-01-02] MEDS: DIVALPROEX 125 MG CAP.SPRINK PO SCH ×2 (08:23→16:13)
[2019-01-02] MEDS: METOPROLOL SUCC 24HR ER 50 MG TAB.ER.24H. PO SCH (08:23)
[2019-01-02] MEDS: ASPIRIN 81 MG TAB.CHEW PO SCH (08:23)
[2019-01-02] MEDS: RIVASTIGMINE 9.5MG PATCH. TD SCH (08:24)
[2019-01-02 15:53] VITALS: BP 148/79
[2019-01-02] MEDS: MIRTAZAPINE 7.5 MG TABLET. PO SCH (20:28)
[2019-01-02] MEDS: traZODone 50 MG TABLET. PO SCH (20:29)
[2019-01-02] MEDS: risperiDONE 0.5 MG TABLET. PO SCH (20:29)
--- NOTE | 2019-01-02 20:53 | PN ---
DATE: 01/01/2019 This late entry 01/01/2019 covers elements not covered in my initial note. SUBJECTIVE: I met with the patient evening of 01/01/2019. The patient slept 6-3/4 hours previous night. She has been pleasant, cooperative, confused, delusional about moving to a facility to find a new job. Again, addressed this with her individually at some length. REVIEW OF SYSTEMS: No CV, , pulmonary, eye, ENT system symptoms on review. Reliability poor. MENTAL STATUS EXAM: Oriented to herself. Insight, judgment, recent and remote memory, attention, concentration, fund of knowledge poor, consistent with her diagnosis mentioned in my initial note. PLAN: No change from initial note. Valproic acid level subtherapeutic, but clinically adequate for now. Continue Depakote, Exelon patch, Luvox, Risperdal, trazodone and Remeron. MAN Charli COLIN MD DR: MICHAEL/arielle JOB#: [id number] / [id number]
--- NOTE | 2019-01-02 21:26 | PN ---
DATE: 12/31/2018 PSYCHIATRIC PROGRESS NOTE This late entry December 31 covers elements not covered in my initial note. SUBJECTIVE: I met with the patient in evening of December 31. The patient slept 7-1/2 hours previous night. She is fixated on wanting a job when she gets to the next placement. 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 REVIEW OF SYSTEMS: No CV, , pulmonary, eye, ENT system symptoms on review. Reliability poor. MENTAL STATUS EXAM: Oriented to herself. Insight, judgment, recent and remote memory, attention, concentration, fund of knowledge poor, consistent with her diagnosis mentioned in my initial note. PLAN: No change from initial note. MAN Charli COLIN MD DR: MICHAEL/arielle JOB#: [id number] / [id number]
--- NOTE | 2019-01-02 21:28 | PDOC ---
Exam Note: Vitaly Note: Please also refer to the separate dictated note~for this date of service dictated separately.~Patient seen individually. Discussed the patient with Nursing staff reviewed the chart.~Reviewed interim history and current functioning. Reviewed vital signs,~Labs/ Radiology~and current medications noted below. Continue current treatment with the changes noted in the dictated addendum note Assessment: Vital Signs/I&O: Vital Signs Date Time Temp Pulse Resp B/P (MAP) Pulse Ox O2 Delivery O2 Flow Rate FiO2 01/02/19 15:53 97.5 87 20 148/79 (102) 98 Room Air I & O 01/01/19 01/01/19 01/02/19 15:00 23:00 07:00 Intake Total 840 ml 600 ml Balance 840 ml 600 ml Current Medications: I have reviewed the current psychotropics carefully including drug interactions. Risk benefit ratio favors no change other than as noted in my dictated progress note. Diagnosis: Problems: (1) Anxiety disorder (2) Dementia, vascular, with depression (3) Dementia, vascular, with delusions (4) Dementia in Alzheimer's disease with depression (5) Impulse control disorder (6) Dementia in Alzheimer's disease with delusions (7) Major neurocognitive disorder, due to vascular disease, with behavioral disturbance, mild (8) Major neurocognitive disorder LIZ COLIN MD Jan 02, 2019 21:28
[2019-01-03 05:51] VITALS: BP 109/69
[2019-01-03] MEDS: DIVALPROEX 125 MG CAP.SPRINK PO SCH ×2 (08:21→16:41)
[2019-01-03] MEDS: METOPROLOL SUCC 24HR ER 50 MG TAB.ER.24H. PO SCH (08:21)
[2019-01-03] MEDS: LISINOPRIL 20 MG TABLET PO SCH (08:21)
[2019-01-03] MEDS: RIVASTIGMINE 9.5MG PATCH. TD SCH (08:22)
[2019-01-03 16:02] VITALS: BP 156/86
[2019-01-03] MEDS: MIRTAZAPINE 7.5 MG TABLET. PO SCH (20:12)
[2019-01-03] MEDS: traZODone 50 MG TABLET. PO SCH (20:12)
[2019-01-03] MEDS: risperiDONE 0.5 MG TABLET. PO SCH (20:12)
--- NOTE | 2019-01-03 21:35 | PDOC ---
Exam Note: Vitaly Note: Please also refer to the separate dictated note~for this date of service dictated separately.~Patient seen individually. Discussed the patient with Nursing staff reviewed the chart.~Reviewed interim history and current functioning. Reviewed vital signs,~Labs/ Radiology~and current medications noted below. Continue current treatment with the changes noted in the dictated addendum note Assessment: Vital Signs/I&O: Vital Signs Date Time Temp Pulse Resp B/P (MAP) Pulse Ox O2 Delivery O2 Flow Rate FiO2 01/03/19 16:02 97.3 66 16 156/86 (109) 100 01/02/19 15:53 Room Air I & O 01/02/19 01/02/19 01/03/19 14:59 22:59 06:59 Intake Total 960 ml 720 ml Balance 960 ml 720 ml Current Medications: I have reviewed the current psychotropics carefully including drug interactions. Risk benefit ratio favors no change other than as noted in my dictated progress note. Diagnosis: Problems: (1) Anxiety disorder (2) Dementia, vascular, with depression (3) Dementia, vascular, with delusions (4) Dementia in Alzheimer's disease with depression (5) Impulse control disorder (6) Dementia in Alzheimer's disease with delusions (7) Major neurocognitive disorder, due to vascular disease, with behavioral disturbance, mild (8) Major neurocognitive disorder LIZ COLIN MD Jan 03, 2019 21:35
--- NOTE | 2019-01-03 22:07 | PN ---
DATE: 01/02/2019 This late entry 01/02/2019 covers elements not covered in my initial note. SUBJECTIVE: I met with the patient on evening of 01/02/2019 at length. The patient slept 6 hours previous night. Previous night, she was delusional, looking for a job at the [facility]. She is going to go to bed. As I addressed this with her individually, she was able to state she does not want a real job or a paycheck, but rather if she could work with others and with art and other therapy that she feels she is good at. She remains somewhat obsessive, hoarding things. At one point, she was talking about her cheating on her with another person who is also called Verónica. This is part of her confusion, questionable delusions. REVIEW OF SYSTEMS: No CV, , PULMONARY, EYE system symptoms on review. MENTAL STATUS EXAM: Oriented to herself. Insight, judgment, recent and remote memory, attention, concentration, fund of knowledge poor, consistent with her diagnosis mentioned in my initial note. PLAN: No change from initial note. MAN Charli COLIN MD DR: MICHAEL/arielle JOB#: [id number] / [id number]
[2019-01-04] MEDS ORDERED: MIRT7.5T8 PO (01:00)
[2019-01-04] MEDS ORDERED: TRAZ-120 PO ×2 (01:02→01:06)
[2019-01-04] MEDS ORDERED: DIVA125C2 PO (01:10)
[2019-01-04 05:53] VITALS: BP 146/86
[2019-01-04] MEDS: DIVALPROEX 125 MG CAP.SPRINK PO SCH ×2 (07:36→16:52)
[2019-01-04] MEDS: LISINOPRIL 20 MG TABLET PO SCH (07:36)
[2019-01-04] MEDS: RIVASTIGMINE 9.5MG PATCH. TD SCH (07:37)
[2019-01-04] MEDS: ASPIRIN 81 MG TAB.CHEW PO SCH (07:37)
[2019-01-04] MEDS: METOPROLOL SUCC 24HR ER 50 MG TAB.ER.24H. PO SCH (07:37)
[2019-01-04 09:32] LABS: BILIRUBIN,URINE NEG (NEG); CLARITY,URINE CLEAR; COLOR,URINE YELLOW; GLUCOSE,URINE NEG (NEG); NITRITE,URINE NEG (NEG); UROBILINOGEN,URINE 0.2 mg/dL (0.2 mg/dL); WBC,URINE OCC /HPF (0-4)
[2019-01-04 09:33] LABS: BACTERIA,URINE 0 /HPF (0-FEW); SQUAMOUS EPITHELIAL CELL,UR OCC /LPF
[2019-01-04 15:39] VITALS: BP 156/82
[2019-01-04] MEDS: risperiDONE 0.5 MG TABLET. PO SCH (20:48)
[2019-01-04] MEDS: traZODone 50 MG TABLET. PO SCH (20:48)
[2019-01-04] MEDS: MIRTAZAPINE 7.5 MG TABLET. PO SCH (20:48)
--- NOTE | 2019-01-04 21:46 | PDOC ---
Exam Note: Vitaly Note: Please also refer to the separate dictated note~for this date of service dictated separately.~Patient seen individually. Discussed the patient with Nursing staff reviewed the chart.~Reviewed interim history and current functioning. Reviewed vital signs,~Labs/ Radiology~and current medications noted below. Continue current treatment with the changes noted in the dictated addendum note Assessment: Vital Signs/I&O: Vital Signs Date Time Temp Pulse Resp B/P (MAP) Pulse Ox O2 Delivery O2 Flow Rate FiO2 01/04/19 15:39 97.8 73 16 156/82 (106) 96 Room Air I & O 01/03/19 01/03/19 01/04/19 15:00 23:00 07:00 Intake Total 720 ml 120 ml 480 ml Balance 720 ml 120 ml 480 ml Labs: Laboratory Tests Test 01/04/19 09:13 Urine Collection Type Void Urine Color Yellow Urine Clarity Clear Urine pH 7.5 Urine Specific [place] 1.015 Urine Protein Neg (NEG-TRACE) Urine Glucose (UA) Neg mg/dL (NEG) Urine Ketones (Stick) Neg mg/dL (NEG) Urine Blood Neg (NEG) Urine Nitrite Neg (NEG) Urine Bilirubin Neg (NEG) Urine Urobilinogen Dipstick 0.2 mg/dL (0.2 mg/dL) Urine Leukocyte Esterase Neg (NEG) Urine RBC 1-2 /HPF (0-2) Urine WBC Occ /HPF (0-4) Urine Squamous Epithelial Cells Occ /LPF Urine Bacteria 0 /HPF (0-FEW) Current Medications: I have reviewed the current psychotropics carefully including drug interactions. Risk benefit ratio favors no change other than as noted in my dictated progress note. Diagnosis: Problems: (1) Anxiety disorder (2) Dementia, vascular, with depression (3) Dementia, vascular, with delusions (4) Dementia in Alzheimer's disease with depression (5) Dementia in Alzheimer's disease with delusions (6) Impulse control disorder (7) Major neurocognitive disorder, due to vascular disease, with behavioral disturbance, mild LIZ COLIN MD Jan 04, 2019 21:46
--- NOTE | 2019-01-05 01:19 | PN ---
DATE: 01/03/2019 PROGRESS NOTE This late entry 01/03/2019 covers elements not covered in my initial note. SUBJECTIVE: I met with the patient evening of 01/03/2019. The patient slept 7-1/4 hours previous night. She has been somewhat withdrawn, gets delusional, believes she needs to go find a job, but does redirect. REVIEW OF SYSTEMS: No CV, , pulmonary, eye, ENT system symptoms on review. Reliability poor. MENTAL STATUS EXAM: Oriented to herself, situations. Speech is coherent, at times a little pressured. Abstraction fair, computation impaired, language function intact, attention span short. Mood and affect little anxious, labile, but improved. LABORATORY DATA: Reviewed. IMPRESSION: Unchanged from initial note. PLAN: No change from initial note with possible transition to the [facility] on January 04. During the individual visit, we addressed that she is going there for living, not for a job when she was able to accept this. LIZ COLIN MD DR: MICHAEL/arielle JOB#: [id number] / [id number]
[2019-01-05 05:59] VITALS: BP 129/80
[2019-01-05] MEDS: DIVALPROEX 125 MG CAP.SPRINK PO SCH ×2 (08:21→16:24)
[2019-01-05] MEDS: METOPROLOL SUCC 24HR ER 50 MG TAB.ER.24H. PO SCH (08:22)
[2019-01-05] MEDS: CHOLECALCIFEROL (VITAMIN D3) 50,000 UNIT CAPSULE PO SCH (08:22)
[2019-01-05] MEDS: LISINOPRIL 20 MG TABLET PO SCH (08:22)
[2019-01-05] MEDS: RIVASTIGMINE 9.5MG PATCH. TD SCH (08:22)
[2019-01-05 16:20] VITALS: BP 131/75
[2019-01-05] MEDS: risperiDONE 0.5 MG TABLET. PO SCH (19:20)
[2019-01-05] MEDS: traZODone 50 MG TABLET. PO SCH (19:20)
[2019-01-05] MEDS: MIRTAZAPINE 7.5 MG TABLET. PO SCH (19:21)
--- NOTE | 2019-01-05 21:39 | PDOC ---
Exam Note: Vitaly Note: Please also refer to the separate dictated note~for this date of service dictated separately.~Patient seen individually. Discussed the patient with Nursing staff reviewed the chart.~Reviewed interim history and current functioning. Reviewed vital signs,~Labs/ Radiology~and current medications noted below. Continue current treatment with the changes noted in the dictated addendum note Assessment: Vital Signs/I&O: Vital Signs Date Time Temp Pulse Resp B/P (MAP) Pulse Ox O2 Delivery O2 Flow Rate FiO2 01/05/19 16:20 97.9 71 16 131/75 (93) 97 01/05/19 05:59 Room Air I & O 01/04/19 01/04/19 01/05/19 14:59 22:59 06:59 Intake Total 840 ml 360 ml Balance 840 ml 360 ml Current Medications: I have reviewed the current psychotropics carefully including drug interactions. Risk benefit ratio favors no change other than as noted in my dictated progress note. Diagnosis: Problems: (1) Anxiety disorder (2) Dementia, vascular, with depression (3) Dementia, vascular, with delusions (4) Dementia in Alzheimer's disease with depression (5) Impulse control disorder (6) Dementia in Alzheimer's disease with delusions (7) Major neurocognitive disorder, due to vascular disease, with behavioral disturbance, mild LIZ COLIN MD Jan 05, 2019 21:39
--- NOTE | 2019-01-05 22:56 | PN ---
DATE: 01/04/2019 PSYCHIATRIC PROGRESS NOTE This late entry 01/04/2019 covers elements not covered in my initial note. SUBJECTIVE: I met with the patient evening of 01/04/2019 at length. She is still obsessed about wanting to go to school, get a job and we processed this again. She slept 7 hours previous night. She is somewhat anxious previous night. UA is negative. Nursing staff had called me as an emergency since the previous night she has done very poorly and we postponed the discharge and I have discussed with social service staff. Since then, she has done better. REVIEW OF SYSTEMS: No CV, , pulmonary, eye, ENT system symptoms on review. Reliability poor. MENTAL STATUS EXAM: Oriented to herself. Insight, judgment, recent and remote memory, attention, concentration, fund of knowledge poor, consistent with her diagnosis mentioned in my initial note. PLAN: No change from initial note. MAN Charli COLIN MD DR: MICHAEL/arielle JOB#: [id number] / [id number]
[2019-01-06 06:28] VITALS: BP 132/72
[2019-01-06] MEDS: ASPIRIN 81 MG TAB.CHEW PO SCH (08:32)
[2019-01-06] MEDS: LISINOPRIL 20 MG TABLET PO SCH (08:32)
[2019-01-06] MEDS: DIVALPROEX 125 MG CAP.SPRINK PO SCH ×2 (08:32→17:22)
[2019-01-06] MEDS: METOPROLOL SUCC 24HR ER 50 MG TAB.ER.24H. PO SCH (08:33)
[2019-01-06] MEDS: RIVASTIGMINE 9.5MG PATCH. TD SCH (08:33)
[2019-01-06 16:23] VITALS: BP 104/64
[2019-01-06] MEDS: MIRTAZAPINE 7.5 MG TABLET. PO SCH (20:25)
[2019-01-06] MEDS: risperiDONE 0.5 MG TABLET. PO SCH (20:25)
[2019-01-06] MEDS: traZODone 50 MG TABLET. PO SCH (20:25)
--- NOTE | 2019-01-06 21:45 | PDOC ---
Exam Note: Vitaly Note: Please also refer to the separate dictated note~for this date of service dictated separately.~Patient seen individually. Discussed the patient with Nursing staff reviewed the chart.~Reviewed interim history and current functioning. Reviewed vital signs,~Labs/ Radiology~and current medications noted below. Continue current treatment with the changes noted in the dictated addendum note Assessment: Vital Signs/I&O: Vital Signs Date Time Temp Pulse Resp B/P (MAP) Pulse Ox O2 Delivery O2 Flow Rate FiO2 01/06/19 16:23 97.6 88 16 104/64 (77) 96 Room Air I & O 01/05/19 01/05/19 01/06/19 14:59 22:59 06:59 Intake Total 840 ml 120 ml 120 ml Balance 840 ml 120 ml 120 ml Current Medications: I have reviewed the current psychotropics carefully including drug interactions. Risk benefit ratio favors no change other than as noted in my dictated progress note. 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
[2019-01-07 06:06] VITALS: BP 159/85
[2019-01-07] MEDS: DIVALPROEX 125 MG CAP.SPRINK PO SCH (07:59)
[2019-01-07] MEDS: METOPROLOL SUCC 24HR ER 50 MG TAB.ER.24H. PO SCH (07:59)
[2019-01-07] MEDS: RIVASTIGMINE 9.5MG PATCH. TD SCH (07:59)
[2019-01-07 08:00] VITALS: BP 159/85
[2019-01-07] MEDS: LISINOPRIL 20 MG TABLET PO SCH (08:00)
[2019-01-07] MEDS ORDERED: traZODone 50 MG TABLET. PO PRN (09:45)
--- NOTE | 2019-01-07 20:21 | PN ---
DATE: 01/05/2019 PSYCHIATRIC PROGRESS NOTE This late entry 01/05/2019 covers elements not covered in my initial note. SUBJECTIVE: I met with the patient in the evening of 01/05/2019. The patient slept 6 hours previous night. She did well during the night and during the day on 01/05/2019. Her daughter visited. She is still obsessed about working. States she is going to go to school to get education and then start another job. I addressed this with her at some length that she would be going to [facility] to be a resident that she has worked enough in her life and time for others to help take care of her. She is reluctantly accepting of this. REVIEW OF SYSTEMS: No CV, , pulmonary, eye system symptoms on review. MENTAL STATUS EXAM: Oriented to herself. Insight, judgment, recent and remote memory, attention, concentration, fund of knowledge poor, consistent with her diagnosis mentioned in my initial note. PLAN: No change from initial note. LIZ COLIN MD DR: MICHAEL/arielle JOB#: [id number] / [id number]
--- NOTE | 2019-01-07 20:29 | PN ---
DATE: 01/06/2019 PSYCHIATRIC PROGRESS NOTE This late entry 01/06/2019 covers elements not covered in my initial note. SUBJECTIVE: I met with the patient evening of 01/06/2019 at length and staffed at a treatment team meeting with the entire team in the morning. The patient slept 7 hours previous night and on average 7 hours. Appetite 75-100%, somewhat withdrawn, confused. REVIEW OF SYSTEMS: No CV, , pulmonary, eye, ENT system symptoms on review. Reliability poor. MENTAL STATUS EXAM: Oriented to herself. Insight, judgment, recent and remote memory, attention, concentration, fund of knowledge poor, consistent with her diagnosis mentioned in my initial note. PLAN: No change from initial note. LIZ COLIN MD DR: MICHAEL/arielle JOB#: [id number] / [id number]
--- NOTE | 2019-01-07 21:43 | PDOC ---
Exam Note: Vitaly Note: Please also refer to the separate dictated note~for this date of service dictated separately.~Patient seen individually. Discussed the patient with Nursing staff reviewed the chart.~Reviewed interim history and current functioning. Reviewed vital signs,~Labs/ Radiology~and current medications noted below. Continue current treatment with the changes noted in the dictated addendum note Assessment: Vital Signs/I&O: Vital Signs Date Time Temp Pulse Resp B/P (MAP) Pulse Ox O2 Delivery O2 Flow Rate FiO2 01/07/19 08:00 63 159/85 01/07/19 06:06 97.7 18 97 01/06/19 16:23 Room Air I & O 01/06/19 01/06/19 01/07/19 15:00 23:00 07:00 Intake Total 720 ml 480 ml 240 ml Balance 720 ml 480 ml 240 ml Current Medications: I have reviewed the current psychotropics carefully including drug interactions. Risk benefit ratio favors no change other than as noted in my dictated progress note. Diagnosis: Problems: (1) Anxiety disorder (2) Dementia, vascular, with depression (3) Dementia, vascular, with delusions (4) Dementia in Alzheimer's disease with depression (5) Dementia in Alzheimer's disease with delusions (6) Major neurocognitive disorder, due to vascular disease, with behavioral disturbance, mild LIZ COLIN MD Jan 07, 2019 21:43
--- NOTE | 2019-01-09 21:17 | DS ---
DATE OF DISCHARGE: 01/07/2019 DISCHARGE SUMMARY/PSYCHIATRIC PROGRESS NOTE This is a late entry 01/07/2019 covers elements not covered in my initial note 01/07/2019. REASON FOR ADMISSION: Please refer to the admission history for details. Briefly, the patient is an 83-year-old female referred back to us from [facility] in [place] where I have followed her from a psychiatric standpoint referred by her primary care physician, on account of increasing confusion, agitation, being exit seeking, wandering. She barricaded herself in her room. With delusional thinking, she needed to go to [place] to see her mother and and then thinking they . Behaviors were totally unmanageable. She was on one-on-one status, failed outpatient psychiatric interventions, resulting in this referral. SIGNIFICANT FINDINGS AND CLINICAL COURSE: Following admission, the patient was seen daily individually by myself from a psychiatric standpoint. Medical followup with Dr. Recinos. The patient was quite confused, paranoid, delusional, intermittently agitated. She is also very obsessive. Adjustments were made in her psychotropic. She seemed to respond to a combination of Exelon patch 9.5 mg a day, Luvox 100 mg daily, Risperdal 0.5 mg at bedtime, trazodone 50 mg at bedtime and may repeat x 1, Remeron 7.5 mg at bedtime, Depakote Sprinkles 125 mg b.i.d. Despite level being subtherapeutic at 30, this seemed to be adequate clinically. REVIEW OF SYSTEMS: Prior to discharge on 01/08/2019, no CV, , pulmonary, eye, ENT system symptoms on review. Reliability poor. MENTAL STATUS EXAM: Oriented to herself. Insight, judgment, recent and remote memory, attention, concentration, fund of knowledge poor, consistent with her diagnosis mentioned in my initial note. PLAN: No change from initial note. FINAL DIAGNOSES: Major neurocognitive disorder, Alzheimer, vascular with delusion, depression, behavioral disturbance; anxiety disorder, unspecified; impulse control disorder, unspecified. Rest unchanged from admission. DISCHARGE MEDICATIONS: Please refer to the MRAD. DISCHARGE INSTRUCTIONS: Outpatient psychiatric and medical followup at [facility]. LIZ COLIN MD DR: MICHAEL/arielle JOB#: [id number] / [id number]
== END 2019-01-07 10:00 | DRG 57 ==
LOC: ER 11:40 → GEROPSY 16:32
PROVIDERS: ADMIT Psychiatry & Neurology Psychiatry; ATTEND Psychiatry & Neurology Psychiatry
DX: G30.9 Alzheimer's disease, unspecified (principal); F01.51 Vascular dementia, unspecified severity, with behavioral disturbance; E87.0 Hyperosmolality and hypernatremia; F02.81 Dementia in other diseases classified elsewhere, unspecified severity, with behavioral disturbance; F41.9 Anxiety disorder, unspecified; F32.9 Major depressive disorder, single episode, unspecified; F63.9 Impulse disorder, unspecified; I10 Essential (primary) hypertension; E86.0 Dehydration
CPT/HCPCS: 36415; 80053; 80164; 81001; 83540; 83550; 83735; 85025; 93005; 99285-25

== ENCOUNTER 2020-10-18 21:21 | Observation (INO) | payer MEDICARE, OTHER ==
[~2020-10-18] VITALS: Ht 157.5 cm; Wt 90.0 kg
[~2020-10-18 21:21] MED LIST changes: +DIVA125C2 PO; -LISI-334 PO; -LISI1TAB PO; +LISI1TAB37 PO; +LISI20TA18 PO; +METH28OI2 TP; -METH29OI TP; +MIRT7.5T8 PO; -RISP0.5T3 PO; +RISP0.5T62 PO; +TRAZ-120 PO
--- NOTE | 2020-10-18 22:23 | PHYS DOC ---
Past History Past Medical History: Hypertension, Other Past Surgical History: Other Alcohol Use: None Drug Use: None General Adult EDM: Chief Complaint: MECHANICAL FALL HPI: HPI: 85-year-old female presents from her care facility after fall. Patient was found on the ground in her room by staff. She has a laceration to her forehead and a large hematoma. The patient is not on blood thinners, but she is on aspirin. The patient has dementia and is not taking things about herself. She knows that she fell, but does not member anything about it. She only complains of forehead pain and blood on her face. Review of Systems: Review of Systems: Constitutional: Denies fever or chills Eyes: Denies change in visual acuity HENT: Denies nasal congestion or sore throat Respiratory: Denies cough or shortness of breath Cardiovascular: Denies chest pain or edema GI: Denies abdominal pain, nausea, vomiting, bloody stools or diarrhea : Denies dysuria Musculoskeletal: Denies back pain or joint pain Integument: Forehead hematoma, laceration forehead Neurologic: Denies headache, focal weakness or sensory changes Endocrine: Denies polyuria or polydipsia Lymphatic: Denies swollen glands Psychiatric: Denies depression or anxiety Allergies: Allergies: Allergies Coded Allergies Type Severity Reaction Last Updated Verified No Known Drug Allergies 10/16/18 No Physical Exam: PE: Constitutional: Well developed, well nourished, no acute distress, non-toxic appearance. [] HENT: Normocephalic, atraumatic, bilateral external ears normal, oropharynx moist, no oral exudates, nose normal. [] Eyes: PERRLA, EOMI, conjunctiva normal, no discharge. [] Neck: Normal range of motion, no tenderness, supple, no stridor. [] Cardiovascular: Heart rate regular rhythm, no murmur [] Lungs & Thorax: Bilateral breath sounds clear to auscultation [] Abdomen: Bowel sounds normal, soft, no tenderness, no masses, no pulsatile masses. [] Skin: 4 cm hematoma of the forehead with 2 cm laceration [] Back: No tenderness, no CVA tenderness. [] Extremities: No tenderness, no cyanosis, no clubbing, ROM intact, no edema. [] Neurologic: Alert and oriented to person, normal motor function, normal sensory function, no focal deficits noted. [] Psychologic: Affect normal, mood normal. [] EKG: EKG: [] Radiology/Procedures: Radiology/Procedures: [] Impressions: Exam: CT head and cervical spine INDICATION: Fall, hematoma TECHNIQUE: Sequential axial images through the head and cervical spine were obtained without the administration of IV contrast. Exposure: One or more of the following in the visualized dose reduction techniques were utilized for this examination: 1. Automated exposure control 2. Adjustment of the MA and/or KV according to patient size 3. Use of iterative of reconstructive technique Comparisons: None FINDINGS: Head: No focal parenchymal lesion or hemorrhage is identified. There is no midline shift or sulcal effacement. Moderate patchy hypodensity in the periventricular white matter. No acute vascular territory infarction is identified. Ruiz-white distinction is preserved. The ventricular system is within normal limits without compression hydrocephalus. The basal cisterns are well maintained. Extra soft tissue scalp contusion/hematoma overlying the midline frontal region. The visualized portions of the paranasal sinuses and mastoid air cells are well-pneumatized. No acute fractures. Cervical spine: Vertebral body heights are well-maintained. Mild grade 1 anterolisthesis of C4 on C5. Mild bilateral facet arthropathy is also noted in the cervical spine. Fracture to the cervical spine is not identified. Mild multilevel spondylotic change in cervical spine with degenerative disc disease greatest at C5-C6. Mild bilateral facet arthropathy is also noted in the cervical spine. Visualized paraspinal soft tissues are unremarkable. IMPRESSION: 1. Extra cranial soft tissue scalp contusion/hematoma overlying the midline frontal region without underlying osseous or intracranial abnormality. 2. Negative CT C-spine for acute traumatic injury. Electronically signed by: Warren Arana MD (10/18/2020 10:23 PM) [facility] DICTATED AND SIGNED BY: WARREN ARANA MD DATE: 10/18/202216 CC: HUI ORDOÑEZ DO; MOHINI CALL MD ~MTH0 0 Heart Score: C/O Chest Pain: N/A Risk Factors: Risk Factors: DM, Current or recent (<one month) smoker, HTN, HLP, family history of CAD, obesity. Risk Scores: Score 0 - 3: 2.5% MACE over next 6 weeks - Discharge Home Score 4 - 6: 20.3% MACE over next 6 weeks - Admit for Clinical Observation Score 7 - 10: 72.7% MACE over next 6 weeks - Early Invasive Strategies Course & Med Decision Making: Course & Med Decision Making Pertinent Labs and Imaging studies reviewed. (See chart for details) The patient CT is negative for acute findings. She does have a laceration that I fixed with sutures. See note below for more details. The patient is at baseline. I will admit the patient to the hospital for further observation. I spoke with Dr. Gonzalez and he has accepted the patient for admission. [] Dragon Disclaimer: Dragon Disclaimer: This electronic medical record was generated, in whole or in part, using a voice recognition dictation system. Laceration Repair Lac Repair Indication: [] 2 cm linear laceration of the forehead Procedure: Verbal consent was obtained from the patient for suture repair of her forehead laceration. I anesthetized the wound with 1% lidocaine with epinephr ine. 2 cc was used. Once good anesthesia was achieved, wound was thoroughly irrigated. There were no foreign bodies found. I closed the wound with 4-0 Ethilon suture in interrupted fashion. There were 5 sutures placed. There was good skin approximation. Bleeding was controlled. No dressing was applied. Total repaired wound length: 2 cm Other Items: None The patient tolerated the procedure well. Complications: None. Departure Departure: Impression: Primary Impression: Fall Qualified Codes: W19.XXXA - Unspecified fall, initial encounter Additional Impressions: Laceration of face Qualified Codes: S01.81XA - Laceration without foreign body of other part of head, initial encounter Hematoma Disposition: ADMITTED INPATIENT Admitting Physician: Jairo Gonzalez Referrals: MOHINI CALL MD (PCP) HUI ORDOÑEZ DO Oct 18, 2020 22:22
--- NOTE | 2020-10-18 22:25 | RAD ---
Exam: CT head and cervical spine INDICATION: Fall, hematoma TECHNIQUE: Sequential axial images through the head and cervical spine were obtained without the admi nistration of IV contrast. Exposure: One or more of the following in the visualized dose reduction techniques were utilized for this examination: 1. Automated exposure control 2. Adjustment of the MA and/or KV according to patient size 3. Use of iterative of reconstructive technique Comparisons: None FINDINGS: Head: No focal parenchymal lesion or hemorrhage is identified. There is no midline shift or sulcal effaceme nt. Moderate patchy hypodensity in the periventricular white matter. No acute vascular territory infarcti on is identified. Ruiz-white distinction is preserved. The ventricular system is within normal limits without compression hydrocephalus. The basal cisterns are well maintained. Extra soft tissue scalp contusion/hematoma overlying the midline frontal region. The visualized porti ons of the paranasal sinuses and mastoid air cells are well-pneumatized. No acute fractures. Cervical spine: Vertebral body heights are well-maintained. Mild grade 1 anterolisthesis of C4 on C5. Mild bilateral facet arthropathy is also noted in the cervical spine. Fracture to the cervical spine is not identified. Mild multilevel spondylotic change in cervical spine with degenerative disc disease greatest at C5-C6 . Mild bilateral facet arthropathy is also noted in the cervical spine. Visualized paraspinal soft tissues are unremarkable. IMPRESSION: 1. Extra cranial soft tissue scalp contusion/hematoma overlying the midline frontal region without u nderlying osseous or intracranial abnormality. 2. Negative CT C-spine for acute traumatic injury. Electronically signed by: Warren Acevedo MD (10/18/2020 10:23 PM) TERESITA
[2020-10-19] MEDS ORDERED: ONDANSETRON PF 4 MG/2 ML VIAL. IVP PRN (00:15)
[2020-10-19] MEDS ORDERED: MORPHINE SULFATE 2 MG/ML DISP.SYRIN. IV ONE (00:45)
[2020-10-19 01:15] LABS: BASO # 0.1 x10^3/uL (0.0-0.2); BASO % 1 % (0-3); EOS # 0.1 x10^3/uL (0.0-0.7); EOS % 0 % (0-3); HEMATOCRIT 34.9 % (36.0-47.0); HEMOGLOBIN 11.5 g/dL (12.0-15.5); LYMPH # 1.8 x10^3/uL (1.0-4.8); LYMPH % 13 % (24-48); MEAN CORPUSCULAR HEMOGLOBIN 30 pg (25-35); MEAN CORPUSCULAR HGB CONC 33 g/dL (31-37); MEAN CORPUSCULAR VOLUME 92 fL (79-100); MONO # 0.9 x10^3/uL (0.0-1.1); MONO % 6 % (0-9); NEUT # 11.8 x10^3uL (1.8-7.7); NEUT % 81 % (31-73); PLATELET COUNT 152 x10^3/uL (140-400); RED CELL DISTRIBUTION WIDTH 14.9 % (11.5-14.5); WHITE BLOOD COUNT 14.6 x10^3/uL (4.0-11.0)
[2020-10-19 01:23] LABS: CALCIUM 9.4 mg/dL (8.5-10.1); CREATININE 1.5 mg/dL (0.6-1.0); GFR 33.2
[2020-10-19 01:28] LABS: ALBUMIN 3.4 g/dL (3.4-5.0); ALBUMIN/GLOBULIN RATIO 0.8 (1.0-1.7); TOTAL BILIRUBIN 0.3 mg/dL (0.2-1.0); TOTAL PROTEIN 7.5 g/dL (6.4-8.2)
[2020-10-19 01:33] LABS: POTASSIUM 5.6 mmol/L (3.5-5.1)
[2020-10-19 01:34] VITALS: BP 122/73
[2020-10-19] MEDS ORDERED: ASPI-630 PO (02:49)
[2020-10-19] MEDS ORDERED: FLUO60TA PO (02:49)
[2020-10-19] MEDS ORDERED: BISA10SU4 RC (02:49)
[2020-10-19] MEDS ORDERED: METO50TA29 PO (02:49)
[2020-10-19] MEDS ORDERED: POTA20TA4 PO (02:49)
[2020-10-19] MEDS ORDERED: LISI20TA18 PO (02:49)
[2020-10-19] MEDS ORDERED: MIRT7.5T8 PO (02:49)
[2020-10-19] MEDS ORDERED: LIDO1ADH44 TP (02:49)
[2020-10-19 05:41] VITALS: BP_SYST 102; BP_SYST 134; BP_DIAS 60; BP_DIAS 78
[2020-10-19] MEDS ORDERED: ACETAMINOPHEN 325 MG TABLET PO PRN (08:45)
[2020-10-19] MEDS ORDERED: FLUVOXAMINE MALEATE 100 MG PO SCH (09:00)
[2020-10-19] MEDS ORDERED: DIVALPROEX 125 MG CAP.SPRINK PO SCH (09:00)
[2020-10-19] MEDS ORDERED: RIVASTIGMINE 9.5MG PATCH. TD SCH (09:00)
[2020-10-19] MEDS ORDERED: METOPROLOL SUCC 24HR ER 50 MG TAB.ER.24H. PO SCH ×2 (09:00)
[2020-10-19] MEDS ORDERED: ASPIRIN CHEWABLE 81 MG TABLET. PO SCH ×2 (09:00)
[2020-10-19] MEDS ORDERED: LIDOCAINE (700MG/PATCH) PATCH. TP SCH (09:00)
[2020-10-19] MEDS ORDERED: LISINOPRIL 20 MG TABLET PO SCH ×2 (09:00)
[2020-10-19] MEDS ORDERED: POTASSIUM CHLORIDE 20 MEQ TABLET.ER. PO SCH (09:00)
--- NOTE | 2020-10-19 09:09 | DS ---
DATE OF DISCHARGE: 10/19/2020 ATTENDING PHYSICIAN: Dr. Gonzalez. FINAL DISCHARGE DIAGNOSES: 1. Fall at residential with a hematoma scalp. 2. Mild concussion, improved. 3. Underlying vascular dementia. 4. Essential hypertension. 5. Generalized debilitation. 6. Hyperkalemia due to supplement. HISTORY AND PHYSICAL: The patient is an 85-year-old female, resident of [facility] in [facility]. She fell at the residential, no loss of consciousness. She did a face plant. She has a significant hematoma of the scalp. Her CT of the head showed no intracranial process. She was admitted overnight for observation and neuro checks. PHYSICAL EXAMINATION: Please see the dictated note. PERTINENT LABORATORY AND X-RAY STUDIES: Potassium is slightly elevated at 5.6. She is off of diuretics, this has been held. Hemoglobin 11.5 g/dL, white count 14,000. BUN 47, creatinine is 1.5 mg percent. Nonfasting blood sugar 173. Imaging studies as noted. COURSE IN HOSPITAL: The patient was admitted overnight. She was alert. Neuro checks were adequate. Her vital signs were stable. Her home meds were continued, but simplified. On the second hospital day, she was alert and talking back to her baseline. At this time, she is going back to [facility], will continue her aspirin, Tylenol p.r.n., vitamin D3, Depakote sprinkles, fluoxetine 100 mg daily, fluvoxamine 100 mg daily, Lidoderm patch, lisinopril, methyl salicylate, metoprolol, Remeron and risperidone and Exelon patch. For now, we held her aspirin, bisacodyl, lisinopril, potassium, trazodone and magnesium. I looked at the Prozac dose, it appears to be 60 mg, will continue 60 mg daily as I do not think she needs the scheduled 100 mg daily. She is a DNR per advanced directive. She was discharged then from our hospital in stable condition with explicit instructions and followup care. Total discharge time [address]: Jose TID: [id number]
[2020-10-19 09:18] VITALS: BP 102/60
--- NOTE | 2020-10-19 10:40 | HP ---
ATTENDING PHYSICIAN: Dr. Gonzalez. CHIEF COMPLAINT: Fall at halfway. HISTORY OF PRESENT ILLNESS: The patient is an 85-year-old female, long-term resident of [facility] in [place], [place]. She fell at the halfway. She did a face plant. There is a small laceration, treated in the ED. There is a hematoma on the forehead. CT of the head demonstrated no acute intracranial bleed. She is not on any anticoagulation except for an aspirin. She was admitted to the hospital for observation and neuro checks. PAST MEDICAL HISTORY: Gleaned from the chart. She does not comprehend much due to dementia. She has underlying vascular dementia, depression, delusional behavior, impulse control disorder, chronic kidney disease, thrombocytopenia, degenerative arthritis. [facility]. She also has hypertension. CURRENT MEDICATIONS: Include Tylenol, aspirin, Depakote, fluoxetine, fluvoxamine, Lidoderm patch, lisinopril, magnesium hydroxide, methyl salicylate, metoprolol, Remeron, potassium, risperidone, Exelon and trazodone. ALLERGIES: She has no known drug allergies. SOCIAL HISTORY: Nonsmoker, nondrinker. FAMILY HISTORY: Unobtainable. REVIEW OF SYSTEMS: Unobtainable. PHYSICAL EXAMINATION: GENERAL: When I saw her, this is a pleasant but demented elderly female. INITIAL VITAL SIGNS: Showed a blood pressure of 149/81, pulse is 90 and regular. She is afebrile. Oxygen saturation 98% on room air. HEENT: She has significant ecchymosis and hematoma on the forehead. There is orbital ecchymosis. Extraocular muscles intact. There is no globe damage. NECK: Supple, no bruits. LUNGS: Otherwise clear. CARDIOVASCULAR: Regular heart tones. No gallop. ABDOMEN: Soft, scaphoid, nontender. EXTREMITIES: Without edema. NEUROLOGIC: The patient is bedridden. She is not aware of person or time. PERTINENT LABORATORY STUDIES: Hemoglobin 11.5 g/dL, white count 14,500. Potassium is 5.6 mEq, sodium 141, creatinine is 1.5 mg percent. The obligatory CT of the head showed soft tissue scalp hematoma, no intracranial bleed. ASSESSMENT: 1. An 85-year-old female, halfway patient, with fall at the halfway sustaining a concussion. 2. Scalp hematoma. 3. Underlying dementia. 4. Essential hypertension. 5. Generalized debilitation. 6. Mild hyperkalemia, asymptomatic. PLAN: 1. Observation status. 2. Meds reviewed and simplified. I stopped her potassium. 3. Neuro checks. 4. Discharge to halfway in the morning when stable. WIL DR: Jose TID: [id number]
[2020-10-19] MEDS ORDERED: MIRTAZAPINE 7.5 MG TABLET. PO SCH (21:00)
[2020-10-19] MEDS ORDERED: risperiDONE 0.25 MG TABLET. PO SCH (21:00)
== END 2020-10-19 09:55 ==
LOC: ER 21:21 → INTOOBSV 10-19 00:12 → 1 SOUTH 10-19 00:12
PROVIDERS: ADMIT Hospitalist; ATTEND Hospitalist
DX: S01.81XA Laceration without foreign body of other part of head, initial encounter (principal); S06.0X9A Concussion with loss of consciousness of unspecified duration, initial encounter; I12.9 Hypertensive chronic kidney disease with stage 1 through stage 4 chronic kidney disease, or unspecified chronic kidney disease; N18.9 Chronic kidney disease, unspecified; E87.5 Hyperkalemia; F01.50 Vascular dementia, unspecified severity, without behavioral disturbance, psychotic disturbance, mood disturbance, and anxiety; R53.81 Other malaise; Z79.82 Long term (current) use of aspirin; W18.30XA Fall on same level, unspecified, initial encounter; Y93.89 Activity, other specified; Y92.129 Unspecified place in nursing home as the place of occurrence of the external cause; Y99.8 Other external cause status
CPT/HCPCS: 12011; 36415; 70450; 72125; 80053; 85025; 96374; 96375; 99284; G0378; J2270; J2405; G0379; 99285-25